=== PATIENT | male | born 1945 | race African-American/Black ===

== ENCOUNTER → 2020-08-01 13:51 | Outpatient (BNVA) | payer OTHER, SELFPAY | PROVIDERS: Visit Provider Internal Medicine | DX: Z45.018 Encounter for adjustment and management of other part of cardiac pacemaker (principal); I48.19 Other persistent atrial fibrillation; I10 Essential (primary) hypertension; E11.8 Type 2 diabetes mellitus with unspecified complications | CPT/HCPCS: 93005; 99202 ==

== ENCOUNTER → 2020-08-24 07:21 | Outpatient (REF) | payer OTHER, SELFPAY ==
--- NOTE | 2020-08-24 07:26 | CA_ITS ---
Transthoracic Echocardiogram Patient (Last, First, Middle): Daniel Reyes, Gender: Male Date of : 1945 Age: 75 Procedure Date: 08/24/2020 Procedure Type: Transthoracic Echocardiogram Location: OP Height: 187.96 cm Weight: 131.54 kg BSA: 2.54 m2 Heart Rate: bpm BP: 119 / 73 mmHg Division Superintendent: sIaac MD: Emiliano Roblero MD Printing Plate Clerk: Aniket Dodd MD Symptoms: I25.10 - Atherosclerotic heart disease of [place] coronary... Study Quality: Good ECG Rhythm: Ventriculary paced rhythm Conclusions: - 1. Normal LV systolic function with mild LVH 2. Mild RV in RA enlargement 3. Normal cardiac valvular Doppler 4. Normal RV systolic pressure 5. No pericardial effusion Findings Left Ventricle Normal left ventricular size and systolic function. There is mildly increased left ventricular wall thickness. The visually estimated ejection fraction is between 60-65%. There is paradoxical septal motion consistent with a right ventricular pacemaker. Diastolic function is indeterminate on the basis of available data. Right Ventricle Mildly increased right ventricular cavity size. There is low normal right ventricular systolic function. There is a pacemaker wire seen in the right ventricle. Atria The left atrium is likely dilated. The right atrium is mildly dilated. A pacemaker wire is identified in the right atrium. Aortic Valve The aortic valve structure and function is likely normal. There is no aortic valve stenosis. There is no aortic valve regurgitation. Mitral Valve Normal mitral valve structure and function. There is trace mitral valve regurgitation. There is no mitral valve stenosis. Pulmonic Valve The pulmonic valve was not well visualized. Tricuspid Valve Likely normal tricuspid valve structure and function. There is mild tricuspid valve regurgitation. The right ventricular systolic pressure is normal. The right ventricular systolic pressure is 33 mmHg. There is no evidence of pulmonary hypertension. Great Vessels All visible segments of the aorta are normal in size. The pulmonary artery was not well visualized. Venous The inferior vena cava is normal in size and collapses greater than 50% with inspiration. Pericardium/Pleural There is no evidence of pericardial effusion. Prior Study Comparison No previous study for comparison in the last 5 years Measurements 2D Linear Measurements RVIDd: 2.56 RVIDd Index: 1.01 IVSd: 1.30 0.6-0.9/0.6-1.0 cm LVIDd: 4.33 3.9-5.3/4.2-5.9 cm LVIDd Index: 1.70 2.4-3.2/2.2-3.1 cm/m2 LVIDs: 3.01 2.0-3.6 cm LVPWd: 1.40 0.7-1.1 cm Ao Root: 3.90 2.1-3.5 cm LA Diam: 4.10 2.7-3.8/3.0-4.0 cm LAIDs Index: 1.61 1.5-2.3 cm/m2 LV Mass: 276.90 67-162/88-224 g LV Mass Index: 109.01 43-95/49-115 g/m2 LVOT Diam: 2.30 3.0+(-)1.3 cm 2D Systolic Function EF 4C: 59.00 >55% EF 2C: 75.10 >55% Aortic Valve AoV Pk Karl: 1.00 AoV Mn Karl: 0.78 AoV VTI: 0.22 AoV Pk Grad: 4.00 Aov Mn Grad: 3.00 BALA Cont.VTI: 3.77 LVOT LVOT Pk Karl: 0.90 LVOT Mn Karl: 0.68 LVOT VTI: 0.20 LVOT Pk Grad: 3.00 LVOT Mn Grad: 2.00 LVOT Diam: 2.30 LVOT Area: 4.15 Tricuspid Valve TR Pk Karl: 2.52 TR Pk Grad: 25.00 RA Press: 8.00 RVSP: 33.00 Great Vessels Aorta Ao Root-2D: 3.90 2.0-3.7 cm Ao Asc: 3.60 2.1-3.4 cm Ao Arch: 3.20 Updated in Other Vendor System with Status of Final Aniket Dodd MD electronically signed on 08/24/2020 12:55:15 PM with status of Final
== END ==
LOC: HO.CARD 07:21
PROVIDERS: Visit Provider Internal Medicine
DX: I25.10 Atherosclerotic heart disease of native coronary artery without angina pectoris (principal); I48.19 Other persistent atrial fibrillation
CPT/HCPCS: 93306

== ENCOUNTER → 2021-01-30 12:43 | Outpatient (BNVA) | payer OTHER, SELFPAY | PROVIDERS: Visit Provider Internal Medicine | DX: Z45.018 Encounter for adjustment and management of other part of cardiac pacemaker (principal); I48.19 Other persistent atrial fibrillation; I10 Essential (primary) hypertension; E11.8 Type 2 diabetes mellitus with unspecified complications | CPT/HCPCS: 99212 ==

== ENCOUNTER → 2021-07-31 12:47 | Outpatient (BNVA) | payer OTHER, SELFPAY | PROVIDERS: Visit Provider Internal Medicine | DX: Z45.018 Encounter for adjustment and management of other part of cardiac pacemaker (principal); I48.19 Other persistent atrial fibrillation; I10 Essential (primary) hypertension; E11.8 Type 2 diabetes mellitus with unspecified complications | CPT/HCPCS: 93005; 93280; 99212 ==

== ENCOUNTER → 2022-02-05 12:57 | Outpatient (BNVA) | payer OTHER, SELFPAY | PROVIDERS: Visit Provider Internal Medicine | DX: Z45.018 Encounter for adjustment and management of other part of cardiac pacemaker (principal); I48.0 Paroxysmal atrial fibrillation; I10 Essential (primary) hypertension; E11.8 Type 2 diabetes mellitus with unspecified complications | CPT/HCPCS: 93280; 99212 ==

== ENCOUNTER 2022-04-24 06:09 | Emergency (ER) | payer OTHER, SELFPAY ==
--- NOTE | ~2022-04-24 | CT_ITS ---
EXAMINATION: CT ABDOMEN AND PELVIS WITHOUT CONTRAST CLINICAL INFORMATION: Abdominal pain, constipation. COMPARISON: CT colonography 03/03/2018. TECHNIQUE: Multidetector volumetric imaging was performed from the superior aspect of the liver through the pubic symphysis. Sagittal and coronal reformatted images were obtained on the technologist's workstation. This CT examination was performed using dose optimization techniques as appropriate, variously including the following: *Automated exposure control *Adjustment of mA and/or kV according to patient size (this includes techniques or standardized protocols for targeted exams where dose is matched to indication/reason for exam; i.e. extremities or head) *Use of iterative reconstruction technique DLP: 843 mGy-cm FINDINGS: LUNG BASES: Calcified granuloma in the right lung base (7:113). Bandlike opacities in the left lower lobe and lingula. Partially imaged pacemaker leads and coronary artery calcifications. LIVER, GALLBLADDER, AND BILIARY TREE: Limited noncontrast evaluation of the liver without discrete focal abnormality. Normal appearance of the gallbladder with no pericholecystic inflammatory changes. No biliary ductal dilatation. PANCREAS: Limited noncontrast examination. No peripancreatic fat stranding or free fluid. SPLEEN: Limited noncontrast examination, unremarkable. ADRENAL GLANDS: No adrenal mass. KIDNEYS AND URETERS: Limited noncontrast examination. No nephrolithiasis or hydronephrosis. A few water density cysts are noted in the right kidney, for which no imaging follow-up is recommended. In the posterior surface of the mid to lower right kidney, there is a partially exophytic mixed density lesion, measuring up to 2 cm which is increased in size from 1.5 cm in 2018. BLADDER: Unremarkable. GASTROINTESTINAL TRACT: Small hiatal hernia. The stomach and the small bowel are nondilated. Normal appendix. There is very large amount of stool throughout the colon and rectum with some equivocal wall thickening of the sigmoid colon and rectum. No evidence of volvulus. There is a small amount of free fluid in the left paracolic gutter (2:37) and right lower quadrant anterior to the sigmoid (2:74). ABDOMINAL WALL: No significant hernia is appreciated. LYMPH NODES: No lymphadenopathy. VASCULAR: Limited noncontrast examination. Abdominal aorta is of normal diameter with scattered atherosclerotic disease. PELVIC VISCERA: Enlarged prostate indenting upon the urinary bladder base. OSSEOUS STRUCTURES: Stable irregularity with increased sclerosis of the endplates at L3, L4 and L5 compared to 2018. CT/CT abdomen pelvis wo IV con IMPRESSION: Very large amount of stool in the colon and rectum with questionable wall thickening of the rectum and sigmoid colon and a small volume of free fluid. Constellation of findings are suggestive of severe constipation with equivocal stercoral colitis. Another differential consideration includes colonic pseudoobstruction ( Nancy Syndrome ). Recommend clinical correlation. Indeterminate 2 cm mixed density lesion in the mid to lower right kidney, increased in size since 2018. Further evaluation with an abdominal MRI with and without IV contrast renal mass protocol is recommended, malignancy is not excluded. Enlarged prostate.
[2022-04-24 06:31] VITALS: BP 128/77; PULSE 106; RESP 16; TEMP 36.6; O2SAT 98; BMI 33.7
[2022-04-24 07:50] VITALS: BP 156/88; PULSE 213; RESP 20; O2SAT 94
[2022-04-24 07:58] LABS: MANUAL DIFF FLAG NO
--- NOTE | 2022-04-24 07:59 | PC.NURSE ---
notified by PCT that HR was 213, I went into room and HR was 100 and regular, patient was in pain at the time vitals were taken, he has no symptoms and he does follow cardiology and has a pacemaker.
[2022-04-24 08:03] LABS: Basophils Percent Auto 0.4 % (0-2); Eosinophils Percent Auto 0.1 % (0-4); Hematocrit 48.7 % (42.0-52.0); Hemoglobin 16.1 g/dl (14.0-18.0); Imm Gran Abs Auto 0.03 X10*3/uL (0.00-0.03); Imm Gran Pct Auto 0.3 % (0.0-0.4); Lymphocytes Absolute Auto 0.7 X10*3/uL (1.2-4.9); Mean Corpuscular HGB Conc 33.1 g/dl (31.0-36.0); Mean Corpuscular Hemoglobin 29.8 pg (27.0-33.0); Mean Platelet Volume 9.6 fL (9.4-12.4); Monocytes Absolute Auto 0.4 X10*3/uL (0.1-1.2); Monocytes Percent Auto 4.3 % (2-11); Neutrophils Absolute Auto 8.3 x10*3/uL (2.0-8.3); Neutrophils Percent Auto 87.9 % (45-73); Platelet Count 310 X10*3/uL (160-400); Red Blood Count 5.41 X10*6/uL (4.60-5.80); Red Cell Distribution Width 13.6 % (11.0-16.0); White Blood Count 9.5 X10*3/uL (4.8-10.8)
[2022-04-24 08:12] LABS: Anion Gap 20 (12-20); Blood Urea Nitrogen 15 mg/dL (9-16); Calcium 10.8 mg/dL (8.4-10.2); Carbon Dioxide 22 mmol/L (22-29); Chloride 101 mmol/L (96-108); Estimated Glomerular Filt Rate > 60; Glucose Random 121 mg/dL (60-115); Potassium 3.5 mmol/L (3.3-5.1); Sodium 139 mmol/L (135-145)
[2022-04-24 08:14] LABS: Appearance Urine Clear; Color Urine Yellow; Glucose Urine UA >=1000 mg/dL (Negative); Leukocyte Esterase Urine Negative (Negative); Nitrite Urine Negative (Negative); PH 5.5 (5.0-9.0); Specific Gravity - Urine 1.025 (1.005-1.025); UMIC TRIGGER UACC YES; Urine Blood Negative (Negative); Urine Ketones 40 mg/dL (Negative); Urine Protein Negative (Neg-Trace)
[2022-04-24 08:16] LABS: Bacteria Urine Trace (None Seen); Hyaline Casts Urine 0-2 /LPF (0-2); WBC Urine 0-5 /HPF (0-5)
--- NOTE | 2022-04-24 09:02 | ED_ITS ---
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 The pain is associated with constipation. He reports his last BM was on 04/19. He has been taking laxatives with no relief. He reports today he started dry heaving which prompted him to come to the ER for evaluation. He reports he is no longer passing gas for the last 2 days. No fever, chills, urinary symptoms, back pain. Denies history of bowel obstruction. MD elicited complaint: abdominal pain Pertinent past history: constipation Onset (ago): day(s) (6) Pain Consistency: constant Location: diffuse Severity: moderate Quality: cramping Radiation: none Exacerbating factors: nothing Relieving factors: nothing Associated symptoms: nausea and constipation Related Data Home Medications Medication Instructions Recorded Confirmed allopurinol 300 mg tablet 300 mg PO DAILY 08/01/20 02/05/22 apixaban 5 mg tablet (Eliquis) 5 mg PO BID 08/01/20 02/05/22 cholecalciferol (vitamin D3) 25 25 mcg PO DAILY 08/01/20 02/05/22 mcg (1,000 unit) capsule cyanocobalamin (vitamin B-12) 1,000 mcg PO DAILY 08/01/20 02/05/22 1,000 mcg capsule ergocalciferol (vitamin D2) 1,250 1,250 mcg PO QWEEK 08/01/20 02/05/22 mcg (50,000 unit) capsule (Vitamin D2) metformin 1,000 mg tablet 1,000 mg PO BID 08/01/20 02/05/22 triamterene 37.5 1 cap PO DAILY 08/01/20 02/05/22 mg-hydrochlorothiazide 25 mg capsule empagliflozin 25 mg tablet 12.5 mg PO DAILY 02/05/22 02/05/22 lisinopril 40 mg tablet 40 mg PO DAILY 02/05/22 02/05/22 rosuvastatin 20 mg tablet 10 mg PO DAILY 02/05/22 02/05/22 semaglutide 1 mg/dose (2 mg/1.5 1 mg subcut QWEEK 02/05/22 02/05/22 mL) subcutaneous pen injector Previous Rx's Medication Instructions Recorded metoprolol succinate 50 mg 50 mg PO DAILY #90 tabs 02/05/22 tablet,extended release 24 hr (Toprol XL) Allergies Allergy/AdvReac Type Severity Reaction Status Date / Time [id number]-VqX Reductase AdvReac Intermediate LEG PAINS Verified 02/05/22 13:36 Inhibitor [[id number] REDUCTASE INHIBITOR] Review of Systems Review of Systems Yes all other systems are reviewed and are negative [facility] Past Medical History Medical History (Updated 04/24/22 @ 12:32 by EILEEN Wahl) Essential hypertension Normally functioning cardiac pacemaker present Persistent atrial fibrillation Type 2 diabetes mellitus with unspecified complications Surgical History History of permanent cardiac pacemaker placement (~2006) Family History Family History Father No problems noted. Mother No problems noted. Social History Social History Patient Tobacco Use Status: Never used Tobacco Smoked in Last 30 Days: No Use of substances other than those prescribed or required for medical reasons: No Advance Directives: No Physical Exam ED Vital Signs: Vital Signs - 24 hr 04/24/22 06:31 04/24/22 07:50 04/24/22 10:46 Temperature 97.9 F Pulse Rate 106 H 213 H Respiratory Rate 16 20 20 Blood Pressure 128/77 156/88 H 145/85 H Pulse Oximetry 98 94 95 Oxygen Delivery Method Room Air Room Air Room Air BMI result Body Mass Index 33.7 Appearance: Alert. Oriented X3. No acute distress. Eyes: Pupils equal, round and reactive to light. ENT: Pharynx normal. Neck: Normal inspection. Neck supple. CVS: Tachycardic, heart rate 100, regular rhythm. Pulses normal. Respiratory: No respiratory distress. Breath sounds normal. Abdomen: Obese, distended, tender throughout with guarding, decreased +BS x4 ESTHER: Large amount of stool in the rectal vault, brown. Skin: Skin warm and dry. Normal skin color. Normal skin turgor. No rashes. Extremities: No lower extremity edema. Neuro: Oriented X 3. No motor deficit. No sensory deficit. Procedures Rectal Disimpaction Time out performed rectal disimpaction: Yes Indication: fecal impaction Sedation/Analgesia: opioids Technique: manual disimpaction with gloved finger Result: significant stool output Patient Tolerated Procedure: well and no complications Complications: none Course Course Course Narrative: 76-year-old male with history of AFib on Eliquis, diabetes, HTN who presents to the ER for evaluation of abdominal pain, constipation for the last 6 days. Associated with dry heaving today and no longer passing flatus for the last 2 days. Concern for possible bowel obstruction verses ileus. CT scanning for further evaluation. Pain meds and nausea meds ordered along with IV fluids. Labs unremarkable other than a calcium of 10.8, which may be related to some dehydration. This can also contribute to constipation. Reevaluation(s) Reevaluation #1: CT scan with a very large amount of stool in the colon and rectum. Possible stercoral colitis. Possible colonic pseudo-obstruction, [place] syndrome. Rectal exam performed, air and stool were removed. Patient tolerated well. Enema given. Will reassess. Reevaluation #2: No BM after enema. Pain is improved. He was given dose of his lactulose. After that he had 4 large bowel movements. He is feeling much better. He would like to go home. At this point comfortable DC home, we discussed importance of hydration, fiber and bowel regimen moving forward. He will follow up with his provider and recommended GI follow-up as well. Patient agrees with plan. Stable for discharge home. Medical Decision Making Differential Diagnosis Differential Diagnoses: The differential diagnosis associated with the presentation includes constipation, SBO, colonic pseudoobstruction, ileus, appendicitis, diverticulitis, cholecystitis Admission/Observation Consideration of admission/observation: Escalation of care including admission/observation considered Lab Data MDM Lab Attestation statement: I reviewed the patient's lab results. Mild hypercalcemia no leukocytosis or major metabolic derangements 04/24/22 07:40 04/24/22 07:40 Labs: Lab Results 04/24/22 04/24/22 04/24/22 Range/Units 07:40 07:40 07:40 WBC 9.5 (4.8-10.8) X10*3/uL RBC 5.41 (4.60-5.80) X10*6/uL Hgb 16.1 (14.0-18.0) g/dl Hct 48.7 (42.0-52.0) % MCV 90.0 (80.0-98.0) fL MCH 29.8 (27.0-33.0) pg MCHC 33.1 (31.0-36.0) g/dl RDW 13.6 (11.0-16.0) % Plt Count 310 (160-400) X10*3/uL MPV 9.6 (9.4-12.4) fL Immature Gran % (Auto) 0.3 (0.0-0.4) % Neut % (Auto) 87.9 H (45-73) % Lymph % (Auto) 7.0 L (20-40) % [place] % (Auto) 4.3 (2-11) % Eos % (Auto) 0.1 (0-4) % Baso % (Auto) 0.4 (0-2) % Lymph # (Auto) 0.7 L (1.2-4.9) X10*3/uL [place] # (Auto) 0.4 (0.1-1.2) X10*3/uL Eos # (Auto) 0.0 (0.0-0.4) X10*3/uL Baso # (Auto) 0.0 (0.0-0.2) X10*3/uL Abs Immat Gran (auto) 0.03 (0.00-0.03) X10*3/uL Absolute Neuts (auto) 8.3 (2.0-8.3) x10*3/uL Absolute Nucleated RBC 0.000 (0.0-0.012) X10*3/uL Nucleated RBC % (auto) 0.0 (0.0-0.2) /100WBC Sodium 139 (135-145) mmol/L Potassium 3.5 (3.3-5.1) mmol/L Chloride 101 (96-108) mmol/L Carbon Dioxide 22 (22-29) mmol/L Anion Gap 20 (12-20) BUN 15 (9-16) mg/dL Creatinine 0.88 (0.5-1.4) mg/dL Estim Creat Clear Calc 98.0 Estimated GFR > 60 Random Glucose 121 H (60-115) mg/dL Calcium 10.8 H (8.4-10.2) mg/dL Urine Color Yellow Urine Appearance Clear Urine pH 5.5 (5.0-9.0) Ur Specific [place] 1.025 (1.005-1.025) Urine Protein Negative (Neg-Trace) mg/dL Urine Glucose (UA) >=1000 H (Negative) mg/dL Urine Ketones 40 (Negative) mg/dL Urine Blood Negative (Negative) Urine Nitrite Negative (Negative) Ur Leukocyte Esterase Negative (Negative) Urine RBC 3-5 H (0-2) /HPF Urine WBC 0-5 (0-5) /HPF Ur Squamous Epith Cells 3-5 (0-2) /HPF Urine Bacteria Trace (None Seen) Hyaline Casts 0-2 (0-2) /LPF Independent Interpretation I performed an independent interpretation of an: CT Scan Interpretation: colonic dilatation, no obvious obstruction or transition point. Radiology Impression Discussion of test interpretation with radiology: I have reviewed the radiologist's reading. Radiologist Impression: CT/CT abdomen pelvis wo IV con IMPRESSION: Very large amount of stool in the colon and rectum with questionable wall thickening of the rectum and sigmoid colon and a small volume of free fluid. Constellation of findings are suggestive of severe constipation with equivocal stercoral colitis. Another differential consideration includes colonic pseudoobstruction ( Nancy Syndrome ). Recommend clinical correlation. ? Indeterminate 2 cm mixed density lesion in the mid to lower right kidney, increased in size since 2018. Further evaluation with an abdominal MRI with and without IV contrast renal mass protocol is recommended, malignancy is not excluded. Independent Historian Clinical information obtained from an independent historian. History obtained from or confirmed by: Spouse External Record Review External record reviewed: Outpatient record, Prior outpatient labs and Prior outpatient radiology Prescription Management I considered prescription management with: Pain Medication and Antibiotic Medications Administered Discontinued Medications Generic Name Dose Route Start Last Admin Trade Name Freq PRN Reason Stop Dose Admin Docusate Sodium 200 mg 04/24/22 11:32 04/24/22 12:07 Docusate Sodium 100 Mg Capsule PO 04/24/22 11:33 200 mg ONCE ONE Administration Sodium Chloride 1,000 mls @ 999 mls/hr 04/24/22 09:15 04/24/22 09:32 Ns IV 04/24/22 10:15 999 mls/hr .Q1H1M INDIRA Administration Morphine Sulfate 4 mg 04/24/22 09:09 04/24/22 09:32 Morphine Sulfate 4 Mg/Ml Cartridge IVPUSH 04/24/22 09:10 4 mg ONCE ONE Administration Protocol Ondansetron HCl 4 mg 04/24/22 09:09 04/24/22 09:32 Ondansetron Hcl 4 Mg/2 Ml Vial IVPUSH 04/24/22 09:10 4 mg ONCE ONE Administration Polyethylene Glycol 17 gm 04/24/22 11:32 04/24/22 12:26 Polyethylene Glycol 3350 17 Gm Powd.Pack PO 04/24/22 11:33 17 gm ONCE ONE Administration Senna 15 ml 04/24/22 11:32 04/24/22 12:07 Senna [place] Extract Oral Syrup 15 Ml Syrup PO 04/24/22 11:33 15 ml ONCE ONE Administration Sodium Biphosphate/Sodium Phosphate 133 ml 04/24/22 11:32 04/24/22 12:07 Sodium Phosphate,[place]-Dibasic 133 Ml Enema KS 04/24/22 11:33 133 ml ONCE ONE Administration Critical Care Time Critical Care Time Critical Care Time: No Discharge Plan Discharge Clinical Impression: Constipation Patient Disposition: Home, Self-Care Instructions: Constipation (ED) Additional Instructions: Your CT scan today showed ?a very large amount of stool in the colon and rectum. ? Recommend continuing to take your previously prescribed lactulose. You can take this to 3 times per day to achieve desired bowel movements. Recommend also taking MiraLax once per day in the morning. This is a more gentle laxative and does not have immediate effects like lactulose does. Your CT scan also showed a ?indeterminate 2 cm mixed density lesion in the right kidney. This is increased from 2018. Radiologist is recommending a dedicated abdominal MRI with a kidney protocol to rule out malignancy. Follow-up with your primary care doctor to arrange this test. Drink plenty of fluids. Make sure staying hydrated. Increase your fiber intake, recommend Metamucil or fiber supplements. If you develop new or worsening symptoms call 911 or come back to the ER for further evaluation. Prescriptions: No Action Eliquis 5 mg tablet 5 mg PO BID metformin 1,000 mg tablet 1,000 mg PO BID triamterene-hydrochlorothiazid 37.5-25 mg capsule 1 cap PO DAILY allopurinol 300 mg tablet 300 mg PO DAILY cholecalciferol (vitamin D3) 25 mcg (1,000 unit) capsule 25 mcg PO DAILY ergocalciferol (vitamin D2) [Vitamin D2] 1,250 mcg (50,000 unit) capsule 1,250 mcg PO QWEEK cyanocobalamin (vitamin B-12) 1,000 mcg capsule 1,000 mcg PO DAILY semaglutide 1 mg/dose (2 mg/1.5 mL) pen injector 1 mg subcut QWEEK rosuvastatin 20 mg tablet 10 mg PO DAILY empagliflozin 25 mg tablet 12.5 mg PO DAILY lisinopril 40 mg tablet 40 mg PO DAILY metoprolol succinate [Toprol XL] 50 mg tablet extended release 24 hr 50 mg PO DAILY Qty: 90 3RF
[2022-04-24] MEDS: ondansetron HCL 4 MG/2 ML VIAL IVPUSH (09:32)
[2022-04-24] MEDS: 0.9 % Sodium Chloride 1,000 ML 999 ML IV (09:32)
[2022-04-24] MEDS: Morphine Sulfate 4 MG/ML CARTRIDGE IVPUSH (09:32)
[2022-04-24 10:46] VITALS: BP 145/85; RESP 20; O2SAT 95
[2022-04-24] MEDS: Sodium Phosphate,Mono-Dibasic 133 ML ENEMA PR (12:07)
[2022-04-24] MEDS: Docusate Sodium 100 MG CAPSULE 200 MG PO (12:07)
[2022-04-24] MEDS: polyethylene glycoL 3350 17 GM POWD.PACK PO (12:26)
== END 2022-04-24 14:47 | disposition home or self-care (01) ==
PROVIDERS: Emergency Provider Emergency Medicine
DX: K59.00 Constipation, unspecified (principal); E11.9 Type 2 diabetes mellitus without complications; I10 Essential (primary) hypertension; I48.91 Unspecified atrial fibrillation; Z79.01 Long term (current) use of anticoagulants; Z79.899 Other long term (current) drug therapy; Z79.02 Long term (current) use of antithrombotics/antiplatelets
CPT/HCPCS: 36415; 74176; 80048; 81001; 81003; 85025; 96374; 96375; 99284; J2270; J2405

== ENCOUNTER → 2022-07-30 12:44 | Outpatient (BNVA) | payer OTHER, SELFPAY | PROVIDERS: Visit Provider Internal Medicine | DX: I48.0 Paroxysmal atrial fibrillation (principal); I10 Essential (primary) hypertension; E11.8 Type 2 diabetes mellitus with unspecified complications; G47.33 Obstructive sleep apnea (adult) (pediatric); Z79.01 Long term (current) use of anticoagulants; Z79.4 Long term (current) use of insulin; Z79.899 Other long term (current) drug therapy; Z99.89 Dependence on other enabling machines and devices; Z45.018 Encounter for adjustment and management of other part of cardiac pacemaker | CPT/HCPCS: 93005; 93280; 99212 ==

== ENCOUNTER 2022-08-13 06:56 | Emergency (ER) | payer OTHER, SELFPAY ==
--- NOTE | ~2022-08-13 | CT_ITS ---
CT ANGIOGRAM NECK WITH CONTRAST CT ANGIOGRAM BRAIN WITH CONTRAST CLINICAL INFORMATION: Severe head pain and neck pain. COMPARISON: None available. TECHNIQUE: Test bolus sequences followed by intravenous administration 70 mL of Omnipaque 350. Helical imaging was performed in the axial plane from the thoracic inlet to the skull vertex. Delayed postcontrast imaging of the head was also performed. The data was processed at the sand technologist workstation for generation of MIP sequences. Angled MIPs and volume rendered reformatted images were also generated at an offline 3D workstation under concurrent supervision. Stenoses are assessed in accordance with NASCET criteria unless otherwise indicated. This CT examination was performed using dose optimization techniques as appropriate, variously including the following: *Automated exposure control *Adjustment of mA and/or kV according to patient size (this includes techniques or standardized protocols for targeted exams where dose is matched to indication/reason for exam; i.e. extremities or head) *Use of iterative reconstruction technique FINDINGS: BRAIN: [There is no intracranial hemorrhage, hydrocephalus, extra-axial surface collection, midline shift, or other herniation pattern. Levin to white matter differentiation is diffusely maintained without evidence of an evolved acute territorial infarct. The basilar cisterns are preserved. No significant soft tissue abnormality. No acute osseous abnormality. The paranasal sinuses and the mastoid air cells are well aerated.] CERVICAL SOFT TISSUES AND LUNG APICES: Left pectoral pacemaker. Dependent atelectasis within the lungs. Advanced cervical spondylosis. There is also diffuse idiopathic skeletal hyperostosis throughout the cervical spine with large anterior bridging disc osteophyte complexes resulting in mass effect on the dorsal oropharynx and hypopharynx as well as the upper thoracic esophagus. There is multilevel central canal stenosis which is not well assessed on CT there is severe multilevel bony foraminal stenosis throughout the cervical spine. There are a few punctate calcifications within the left parotid gland. There is a 1 cm simple appearing lipoma within the right parotid gland. NECK CTA: Left common carotid artery arises from the brachiocephalic artery, an anatomic variant. Left vertebral artery arises from the aortic arch. Proximal arch vessels are non-stenotic. The left vertebral artery is dominant. No significant ostial stenosis is visualized on either side. Both vertebral arteries are widely patent throughout their extracranial cervical course. Both common carotid arteries are normal in course and caliber.] There is atherosclerotic calcification involving the carotid bifurcations bilaterally without significant stenosis. BRAIN CTA: [There is normal opacification of major intracranial arteries. No focal flow-limiting stenosis nor discrete proximal large artery occlusion. No aneurysm. Timing of the contrast bolus allows assessment of the major dural venous sinuses, which all opacify normally] CT/CT angio head neck IMPRESSION: - No acute intracranial findings. No acute arterial occlusions and no significant arterial stenoses within the head or neck. - Advanced cervical spondylosis. There is also diffuse idiopathic skeletal hyperostosis throughout the cervical spine with large anterior bridging disc osteophyte complexes resulting in mass effect on the dorsal oropharynx and hypopharynx as well as the upper thoracic esophagus. There is multilevel central canal stenosis throughout the cervical spine which is not well assessed on CT there is severe multilevel bony foraminal stenosis throughout the cervical spine.
[2022-08-13 07:02] VITALS: BP 166/72; PULSE 86; RESP 18; TEMP 36.6; O2SAT 98; BMI 34.0
--- NOTE | 2022-08-13 07:41 | ED.GENADULT ---
HPI - General Adult General Chief complaint: Neck Pain/Injury Stated complaint: STIFF NECK Time Seen by Provider: 08/13/22 07:13 Source: patient Mode of arrival: ambulatory Limitations: no limitations History of Present Illness HPI narrative: 77-year-old male presents with neck pain. The pain started 3 days ago. Is located in the upper neck. Pain sometimes radiates the head. Describes the pain as a 7/10 at its worse. Right now is currently 5/10. The pain is worse with movement. There is no photo or phonophobia. There has been no fevers or chills. The pain was gradual in onset. There is no trauma, falls, injury. The pain does not radiate to the upper extremities or lower extremities. There is no numbness or tingling. Prior treatment included Tylenol with improvement. He is on blood thinning medications for paroxysmal atrial fibrillation. Patient initially thought it was arthritis Related Data Home Medications Medication Instructions Recorded Confirmed allopurinol 300 mg tablet 300 mg PO DAILY 08/01/20 07/30/22 apixaban 5 mg tablet (Eliquis) 5 mg PO BID 08/01/20 07/30/22 cholecalciferol (vitamin D3) 25 25 mcg PO DAILY 08/01/20 07/30/22 mcg (1,000 unit) capsule cyanocobalamin (vitamin B-12) 1,000 mcg PO DAILY 08/01/20 07/30/22 1,000 mcg capsule ergocalciferol (vitamin D2) 1,250 1,250 mcg PO QWEEK 08/01/20 07/30/22 mcg (50,000 unit) capsule (Vitamin D2) metformin 1,000 mg tablet 1,000 mg PO BID 08/01/20 07/30/22 empagliflozin 25 mg tablet 12.5 mg PO DAILY 02/05/22 07/30/22 lisinopril 40 mg tablet 40 mg PO DAILY 02/05/22 07/30/22 rosuvastatin 20 mg tablet 10 mg PO DAILY 02/05/22 07/30/22 semaglutide 1 mg/dose (2 mg/1.5 1 mg subcut QWEEK 02/05/22 07/30/22 mL) subcutaneous pen injector gabapentin 300 mg capsule 300 mg PO DAILY 07/30/22 07/30/22 insulin aspart U-100 100 unit/mL 100 unit subcut DAILY 07/30/22 07/30/22 (3 mL) subcutaneous pen (Novolog FlexPen U-100 Insulin aspart) triamterene 37.5 0.5 cap PO DAILY 07/30/22 07/30/22 mg-hydrochlorothiazide 25 mg capsule Previous Rx's Medication Instructions Recorded metoprolol succinate 50 mg 50 mg PO DAILY #90 tabs 02/05/22 tablet,extended release 24 hr (Toprol XL) cyclobenzaprine 10 mg tablet 10 mg PO TID PRN muscle spasm #14 08/13/22 tabs lidocaine 5 % topical patch 1 patch topical DAILY #15 ea 08/13/22 Allergies Allergy/AdvReac Type Severity Reaction Status Date / Time Zhlontt-FNX-PfP Reductase AdvReac Intermediate LEG PAINS Verified 07/30/22 13:28 Inhibitor [[id number] REDUCTASE INHIBITOR] [facility] Past Medical History Medical History Essential hypertension Normally functioning cardiac pacemaker present BRIAN on CPAP Persistent atrial fibrillation Type 2 diabetes mellitus with unspecified complications Surgical History History of permanent cardiac pacemaker placement (~2006) Family History Family History Father No problems noted. Mother No problems noted. Social History Social History Alcohol intake: never Patient Tobacco Use Status: Never used Tobacco Smoked in Last 30 Days: No Use of substances other than those prescribed or required for medical reasons: No Advance Directives: Yes Advance Directives Information Provided: No Advance Directives on File: No Physical Exam ED Vital Signs: Vital Signs - 24 hr 08/13/22 07:02 08/13/22 07:57 Temperature 97.8 F 98.0 F Pulse Rate 86 63 Respiratory Rate 18 18 Blood Pressure 166/72 H 130/75 Pulse Oximetry 98 95 Oxygen Delivery Method Room Air Room Air BMI result Body Mass Index 34.0 GEN: Well developed, no acute distress, alert, oriented HEENT: Normocephalic, atraumatic, normal external ears, nose appears normal, no oropharyngeal edema or exudates Eyes: Normal to appearance Neck: Reduced range of motion, bilateral upper lower cervical paraspinous tenderness, no midline tenderness or step-off, no lymphadenopathy Respiratory: Talks in complete sentences, no respiratory distress, clear to auscultation bilaterally Cardiovascular: Regular rate and rhythm, no murmurs rubs or gallops Abdomen: Soft, nontender, nondistended, no guarding, no rebound Back: No CVA tenderness Extremities: No clubbing cyanosis or edema Neurologic: No focal neurologic deficits, cranial nerves 2-12 intact, strength is 5/5 bilaterally Skin: No rash Course Course Course Narrative: 77-year-old male presents with neck pain and headache. The symptoms have started 3 days ago. There are intermittent. Examination did reveal upper cervical paraspinous tenderness. However, patient is on blood thinning medications for paroxysmal atrial fibrillation. Will perform a CT scan of the head and neck to rule out acute pathology. In the meantime, will provide patient with analgesics and muscle relaxants. Will check laboratory analysis to look for other contributing factors. Reevaluation(s) Reevaluation #1: Discussed results with the patient including significant stenosis and degenerative disease. Referred patient back to his primary care provider in 1 week following treatment. Time: 10:29 Medications Administered Discontinued Medications Generic Name Dose Route Start Last Admin Trade Name Prasadq PRN Reason Stop Dose Admin Acetaminophen 975 mg 08/13/22 07:28 08/13/22 07:55 Acetaminophen 325 Mg Tablet PO 08/13/22 07:29 975 mg ONCE ONE Administration Cyclobenzaprine HCl 10 mg 08/13/22 07:28 08/13/22 07:55 Cyclobenzaprine Hcl 10 Mg Tablet PO 08/13/22 07:29 10 mg ONCE ONE Administration Iohexol 100 ml 08/13/22 09:03 08/13/22 09:04 Iohexol 350 Mg/Ml 100 Ml Infus..Btl IV 08/13/22 09:04 70 ml ONCE ONE Administration Lidocaine 1 patch 08/13/22 09:53 08/13/22 09:57 Lidocaine 4 % Patch Adh..Patch TRANSDERMA 08/13/22 09:54 1 patch ONCE ONE Administration Protocol Medical Decision Making Medical Decision Making MDM Narrative: 77-year-old male with diabetes, paroxysmal atrial fibrillation on chronic anticoagulation, hypertension presents with headache and neck pain. Examination revealed reduced range of motion, paraspinous tenderness. Symptoms were not acute in fender clap in nature. Doubt subarachnoid hemorrhage however, given patient's blood thinning status, rule will try to rule out intracranial bleeding, arterial issues. Other differential diagnosis could include spasm, strain, sprain, torticollis, arthritis, stenosis. Doubt epidural abscess as he has no fevers. Doubt meningitis, no fevers, no change of mental status. Differential Diagnosis Differential Diagnoses: The differential diagnosis associated with the presentation includes (See above) Neck pain, headache Admission/Observation Consideration of admission/observation: Escalation of care including admission/observation considered Lab Data MDM Lab Attestation statement: I reviewed the patient's lab results. 08/13/22 07:50 08/13/22 08:15 Labs: Lab Results 08/13/22 08/13/22 08/13/22 Range/Units 07:50 07:50 08:15 WBC 6.8 (4.8-10.8) X10*3/uL RBC 4.91 (4.60-5.80) X10*6/uL Hgb 14.3 (14.0-18.0) g/dl Hct 44.5 (42.0-52.0) % MCV 90.6 (80.0-98.0) fL MCH 29.1 (27.0-33.0) pg MCHC 32.1 (31.0-36.0) g/dl RDW 14.2 (11.0-16.0) % Plt Count 267 (160-400) X10*3/uL MPV 9.5 (9.4-12.4) fL Immature Gran % (Auto) 0.1 (0.0-0.4) % Neut % (Auto) 77.6 H (45-73) % Lymph % (Auto) 14.3 L (20-40) % [place] % (Auto) 7.3 (2-11) % Eos % (Auto) 0.1 (0-4) % Baso % (Auto) 0.6 (0-2) % Lymph # (Auto) 1.0 L (1.2-4.9) X10*3/uL [place] # (Auto) 0.5 (0.1-1.2) X10*3/uL Eos # (Auto) 0.0 (0.0-0.4) X10*3/uL Baso # (Auto) 0.0 (0.0-0.2) X10*3/uL Abs Immat Gran (auto) 0.01 (0.00-0.03) X10*3/uL Absolute Neuts (auto) 5.3 (2.0-8.3) x10*3/uL Absolute Nucleated RBC 0.000 (0.0-0.012) X10*3/uL Nucleated RBC % (auto) 0.0 (0.0-0.2) /100WBC PT 16.6 H (10.0-13.1) SEC INR 1.4 H (0.9-1.1) APTT 31.9 (26.0-36.4) SEC Sodium 141 (135-145) mmol/L Potassium 4.0 (3.3-5.1) mmol/L Chloride 110 H (96-108) mmol/L Carbon Dioxide 24 (22-29) mmol/L Anion Gap 11 L (12-20) BUN 11 (9-16) mg/dL Creatinine 0.74 (0.5-1.4) mg/dL Estim Creat Clear Calc 115.1 Estimated GFR > 60 Random Glucose 105 (60-115) mg/dL Calcium 9.4 D (8.4-10.2) mg/dL Independent Interpretation I performed an independent interpretation of an: CT Scan (CTA head and neck: NAD) Radiology Impression Discussion of test interpretation with radiology: I have reviewed the radiologist's reading. ( CT/CT angio head neck IMPRESSION: - No acute intracranial findings. No acute arterial occlusions and no significant arterial stenoses within the head or neck. - Advanced cervical spondylosis. There is also diffuse idiopathic skeletal hyperostosis throughout the cervical spine wi) Independent Historian Clinical information obtained from an independent historian. History obtained from or confirmed by: Spouse Prescription Management I considered prescription management with: Pain Medication Chronic Conditions Patient?s care impacted by: Diabetes and Hypertension Discharge Plan Discharge Clinical Impression: Torticollis, Acute headache Patient Disposition: Home, Self-Care Instructions: Acute Headache (ED), Neck Pain (ED) Prescriptions: New cyclobenzaprine 10 mg tablet 10 mg PO TID PRN (Reason: muscle spasm) Qty: 14 0RF lidocaine 5 % adhesive patch,medicated 1 patch topical DAILY Qty: 15 0RF Rx Instructions: leave on most painful area for up to 12 hrs No Action Eliquis 5 mg tablet 5 mg PO BID metformin 1,000 mg tablet 1,000 mg PO BID allopurinol 300 mg tablet 300 mg PO DAILY cholecalciferol (vitamin D3) 25 mcg (1,000 unit) capsule 25 mcg PO DAILY ergocalciferol (vitamin D2) [Vitamin D2] 1,250 mcg (50,000 unit) capsule 1,250 mcg PO QWEEK cyanocobalamin (vitamin B-12) 1,000 mcg capsule 1,000 mcg PO DAILY triamterene-hydrochlorothiazid 37.5-25 mg capsule 0.5 cap PO DAILY semaglutide 1 mg/dose (2 mg/1.5 mL) pen injector 1 mg subcut QWEEK rosuvastatin 20 mg tablet 10 mg PO DAILY empagliflozin 25 mg tablet 12.5 mg PO DAILY lisinopril 40 mg tablet 40 mg PO DAILY metoprolol succinate [Toprol XL] 50 mg tablet extended release 24 hr 50 mg PO DAILY Qty: 90 3RF insulin aspart U-100 [Novolog FlexPen U-100 Insulin] 100 unit/mL (3 mL) insulin pen 100 unit subcut DAILY gabapentin 300 mg capsule 300 mg PO DAILY Referrals: Physician,Unknown J [Primary Care Provider] - (Primary care provider in 1 week)
[2022-08-13 07:55] LABS: MANUAL DIFF FLAG NO
[2022-08-13] MEDS: Cyclobenzaprine HCl 10 MG TABLET PO (07:55)
[2022-08-13] MEDS: Acetaminophen 325 MG TABLET 975 MG PO (07:55)
[2022-08-13 07:57] VITALS: BP 130/75; PULSE 63; RESP 18; TEMP 36.7; O2SAT 95
[2022-08-13 07:57] LABS: Basophils Percent Auto 0.6 % (0-2); Eosinophils Percent Auto 0.1 % (0-4); Hematocrit 44.5 % (42.0-52.0); Hemoglobin 14.3 g/dl (14.0-18.0); Imm Gran Abs Auto 0.01 X10*3/uL (0.00-0.03); Imm Gran Pct Auto 0.1 % (0.0-0.4); Lymphocytes Percent Auto 14.3 % (20-40); Mean Corpuscular HGB Conc 32.1 g/dl (31.0-36.0); Mean Corpuscular Hemoglobin 29.1 pg (27.0-33.0); Mean Corpuscular Volume 90.6 fL (80.0-98.0); Mean Platelet Volume 9.5 fL (9.4-12.4); Monocytes Absolute Auto 0.5 X10*3/uL (0.1-1.2); Monocytes Percent Auto 7.3 % (2-11); Neutrophils Absolute Auto 5.3 x10*3/uL (2.0-8.3); Neutrophils Percent Auto 77.6 % (45-73); Platelet Count 267 X10*3/uL (160-400); Red Blood Count 4.91 X10*6/uL (4.60-5.80); Red Cell Distribution Width 14.2 % (11.0-16.0); White Blood Count 6.8 X10*3/uL (4.8-10.8)
[2022-08-13 08:13] LABS: INTERNATIONAL NORM RATIO 1.4 (0.9-1.1); Prothrombin Time 16.6 SEC (10.0-13.1)
[2022-08-13 08:16] LABS: Partial Thromboplastin Time 31.9 SEC (26.0-36.4)
[2022-08-13 08:37] LABS: Anion Gap 11 (12-20); Blood Urea Nitrogen 11 mg/dL (9-16); Calcium 9.4 mg/dL (8.4-10.2); Carbon Dioxide 24 mmol/L (22-29); Chloride 110 mmol/L (96-108); Creatinine Clr Calc Pharmacy 115.1; Estimated Glomerular Filt Rate > 60; Glucose Random 105 mg/dL (60-115); Sodium 141 mmol/L (135-145)
[2022-08-13] MEDS: iohexoL 350 MG/ML 100 ML INFUS..BTL IV (09:04)
[2022-08-13] MEDS: Lidocaine 4 % Patch ADH..PATCH 1 PATCH TRANSDERMA (09:57)
== END 2022-08-13 10:44 | disposition home or self-care (01) ==
PROVIDERS: Emergency Provider Emergency Medicine
DX: M43.6 Torticollis (principal); R51.9 Headache, unspecified; E11.9 Type 2 diabetes mellitus without complications; I10 Essential (primary) hypertension; I48.0 Paroxysmal atrial fibrillation; Z79.01 Long term (current) use of anticoagulants; Z79.4 Long term (current) use of insulin; Z79.899 Other long term (current) drug therapy
CPT/HCPCS: 36415; 70496; 70498; 80048; 85025; 85610; 85730; 99284; Q9967

== ENCOUNTER 2022-10-05 11:04 | Outpatient (AMB) | payer MEDICARE, SELFPAY ==
--- NOTE | 2022-10-05 09:34 | A.OFFVIS_ITS ---
Intake Intake Visit Reasons: Renal Lesion Intake Note: NEW Patient presents today to established treatment for Renal Lesion. Meds- None Allergies to Antibiotic- None Blood Thinner- Eliquis Allergies Oojtgvy-OPF-VbQ Reductase Inhibitor [CHTZUMB-XIH-OOP REDUCTASE INHIBITOR] Adverse Reaction (Intermediate, Verified 10/05/22 11:53) LEG PAINS HPI HPI Comments History of Present Illness Details Daniel is a 77-year-old male who presents to the office as a new patient evaluation for renal lesion. 10/05/22-- The patient denies gross hematuria. Denies episode of UTI. States having 2 voiding episodes per night. Denies family history of prostate cancer. The patient is on Eliquis 5 mg BID. CTAP without IV contrast--04/24/22-- 2cm exophytic mixed density lesion in the right kidney which is reported to be increased from prior size of 1.5 cm on imaging from 2018. CTAP with and without IV contrast--09/05/2022--follow-up to the prior image on 04/24/22--1.9 cm heterogeneous lesion that enhances and is worrisome for renal malignancy. CAT scan chest--05/08/22-- impression-- no new abnormality identified. Evaluation today: Blood: negative, leukocytes: negative. Treatment options including cryoablation recommended due to size of renal mass was discussed with the patient. Plan: Referred to interventional radiologist. Medical clearance to stop eliquis and aspirin prior to procedure PSA screening PSA blood work was ordered. [facility] [place] Medical History Essential hypertension Normally functioning cardiac pacemaker present BRIAN on CPAP Persistent atrial fibrillation Type 2 diabetes mellitus with unspecified complications Surgical History History of permanent cardiac pacemaker placement (~2006) Family History Father No problems noted. Mother No problems noted. Social History Alcohol intake: never Patient Tobacco Use Status: Never used Tobacco Review of Systems Const All systems reviewed & are unremarkable except as noted in HPI and below Reports no additional complaints Eyes Reports no additional complaints ENT Reports no additional complaints Card Denies dyspnea Resp Denies cough and Denies dyspnea GI Reports no additional complaints Musc Reports no additional complaints Skin/Breast Denies rash and Denies unusual bruising Neuro Reports no additional complaints Psych Reports no additional complaints Endo Reports no additional complaints Gael/Lymph Reports no additional complaints Aller/Immun Reports no additional complaints Physical Exam Const General: healthy appearing, no acute distress and well developed Orientation/consciousness: patient oriented x3 HEENT Head: Yes normocephalic and Yes atraumatic Eyes Conjunctivae: conjunctivae normal Neck Neck: Yes normal visual inspection Chest Chest palpation & inspection: normal inspection of the chest Resp Effort & Inspection: normal respiratory effort Cardio Rate: regular rate GI Inspection: Yes normal to inspection Skin General skin exam: no rashes or lesions noted Neuro General: patient oriented x3 Psych Appearance: grossly normal Affect: normal affect Results AMB Urinalysis, Automated UA Leukoctes 0 Eliz/uL Last Edit by Dedra Martinez [facility] on 10/05/22 11:53 UA Nitrite Negative Last Edit by Dedra Martinez [facility] on 10/05/22 11:53 UA Urobilinogen 0.2 mg/dL Last Edit by Dedra Martinez [facility] on 10/05/22 11:5 3 UA Protein 0 mg/dL Last Edit by Dedra Martinez [facility] on 10/05/22 11:53 UA pH 6.0 Last Edit by Dedra Martinez [facility] on 10/05/22 11:53 UA Blood 0 Myke/uL Last Edit by Dedra Martinez [facility] on 10/05/22 11:53 UA Specific [place] 1.025 Last Edit by Dedra Martinez [facility] on 10/05/22 11: 53 UA Ketone Negative Last Edit by Dedra Martinez [facility] on 10/05/22 11:53 UA Bilirubin 1 mg/dL Last Edit by Dedra Martinez [facility] on 10/05/22 11:53 UA Glucose 1000 mg/dL Last Edit by Dedra Martinez [facility] on 10/05/22 11:53 Results Reviewed Results Reviewed: Laboratory Last Values Urine pH (Auto) 6.0 10/05/22 11:52 Specific [place] (Auto) 1.025 10/05/22 11:52 Urine Protein (Auto) 0 mg/dL 10/05/22 11:52 Glucose (UA)(Auto) 1000 mg/dL 10/05/22 11:52 Urine Ketones (Auto) Negative 10/05/22 11:52 Urine Blood (Auto) 0 Myke/uL 10/05/22 11:52 Urine Nitrite (Auto) Negative 10/05/22 11:52 Urine Bilirubin (Auto) 1 mg/dL 10/05/22 11:52 Urine Urobilinogen (Auto) 0.2 mg/dL 10/05/22 11:52 Leukocyte Esterase (Auto) 0 Eliz/uL 10/05/22 11:52 Date of Service: 04/24/22 Procedure(s): CT abdomen pelvis wo IV con Accession Number(s): [id number] cc: Risa Walls~ EXAMINATION: CT ABDOMEN AND PELVIS WITHOUT CONTRAST? CLINICAL INFORMATION: Abdominal pain, constipation.? COMPARISON: CT colonography 03/03/2018.? TECHNIQUE: Multidetector volumetric imaging was performed from the superior aspect of the liver through the pubic symphysis. Sagittal and coronal reformatted images were obtained on the technologist's workstation.? This CT examination was performed using dose optimization techniques as appropriate, variously including the following: *Automated exposure control *Adjustment of mA and/or kV according to patient size (this includes techniques or standardized protocols for targeted exams where dose is matched to indication/reason for exam; i.e. extremities or head) *Use of iterative reconstruction technique DLP: 843 mGy-cm FINDINGS: LUNG BASES: Calcified granuloma in the right lung base (7:113). Bandlike opacities in the left lower lobe and lingula. Partially imaged pacemaker leads and coronary artery calcifications.? LIVER, GALLBLADDER, AND BILIARY TREE: Limited noncontrast evaluation of the liver without discrete focal abnormality. Normal appearance of the gallbladder with no pericholecystic inflammatory changes. No biliary ductal dilatation. PANCREAS: Limited noncontrast examination. No peripancreatic fat stranding or free fluid.? SPLEEN: Limited noncontrast examination, unremarkable.? ADRENAL GLANDS: No adrenal mass.? KIDNEYS AND URETERS: Limited noncontrast examination. No nephrolithiasis or hydronephrosis. A few water density cysts are noted in the right kidney, for which no imaging follow-up is recommended. In the posterior surface of the mid to lower right kidney, there is a partially exophytic mixed density lesion, measuring up to 2 cm which is increased in size from 1.5 cm in 2018.? BLADDER: Unremarkable.? GASTROINTESTINAL TRACT: Small hiatal hernia. The stomach and the small bowel are nondilated. Normal appendix. There is very large amount of stool throughout the colon and rectum with some equivocal wall thickening of the sigmoid colon and rectum. No evidence of volvulus. There is a small amount of free fluid in the left paracolic gutter (2:37) and right lower quadrant anterior to the sigmoid (2:74).? ABDOMINAL WALL: No significant hernia is appreciated.? LYMPH NODES: No lymphadenopathy. VASCULAR: Limited noncontrast examination. Abdominal aorta is of normal diameter with scattered atherosclerotic disease. PELVIC VISCERA: Enlarged prostate indenting upon the urinary bladder base.? OSSEOUS STRUCTURES: Stable irregularity with increased sclerosis of the endplates at L3, L4 and L5 compared to 2018.? IMPRESSION: Very large amount of stool in the colon and rectum with questionable wall thickening of the rectum and sigmoid colon and a small volume of free fluid. Constellation of findings are suggestive of severe constipation with equivocal stercoral colitis. Another differential consideration includes colonic pseudoobstruction ( [place] Syndrome ). Recommend clinical correlation. ? Indeterminate 2 cm mixed density lesion in the mid to lower right kidney, increased in size since 2018. Further evaluation with an abdominal MRI with and without IV contrast renal mass protocol is recommended, malignancy is not excluded. Assessment & Plan Assessment & Plan (1) Screening PSA (prostate specific antigen): Code(s): Z12.5 - Encounter for screening for malignant neoplasm of prostate (2) Renal mass: Code(s): N28.89 - Other specified disorders of kidney and ureter (3) Nocturia: Code(s): R35.1 - Nocturia Plan Referred to interventional radiologist. Medical clearance to stop eliquis and aspirin prior to procedure PSA screening PSA blood work was ordered. Orders: Orders PSA,Total (Free>4and<10) Today Z12.5 - Encounter for screening for malignant neoplasm of prostate CT guided ablation renal Today N28.89 - Other specified disorders of kidney and ureter AMB Urinalysis Automated Today Z13.9 - Encounter for screening, unspecified Patient Instructions: The patient had an opportunity to ask questions regarding treatment plan. All questions were answered. Imaging, Laboratory studies and physical exam results were discussed and reviewed in detail. No major barriers to understanding were identified. The patient expressed understanding and agreement with the above treatment plan. The patient is aware they should contact our office by phone for worsening of their current condition or the appearance of new symptoms. Compliance is encouraged with any medications and followup testing that is ordered. It is a privilege to be allowed the opportunity to participate in the urologic care of your patient. If you have any questions or concerns regarding treatment for the above conditions please do not hesitate to contact me. The office telephone contact is [phone]. This note is constructed in part using voice recognition software. While every effort has been made to ensure accuracy risk adjustment specialist errors may have been included. Yours sincerely, Camila Sellers MD Coding Level of Care Code New Pt Level 4 (70335) Diagnoses Screening PSA (prostate specific antigen) Z12.5 Renal mass N28.89 Nocturia R35.1
== END 2022-10-05 13:40 | disposition home or self-care (01) ==
PROVIDERS: Visit Provider Urology
DX: Z12.5 Encounter for screening for malignant neoplasm of prostate (principal); N28.89 Other specified disorders of kidney and ureter; R35.1 Nocturia
CPT/HCPCS: 99204

== ENCOUNTER → 2022-10-05 11:04 | Outpatient (BNVA) | payer OTHER, SELFPAY | PROVIDERS: Visit Provider Urology ==

== ENCOUNTER 2022-10-05 12:21 | Outpatient (REF) | payer OTHER, SELFPAY ==
[2022-10-05 14:34] LABS: PSA,Total (Free>4and<10) 3.43 ng/mL (0.00-4.00)
== END 2022-10-05 12:22 | disposition home or self-care (01) ==
LOC: HO.10HDL 12:21
PROVIDERS: Visit Provider Urology
DX: Z12.5 Encounter for screening for malignant neoplasm of prostate (principal); N28.89 Other specified disorders of kidney and ureter; R35.1 Nocturia
CPT/HCPCS: 36415; 84153; 99202

== ENCOUNTER 2022-10-22 07:54 | Outpatient (REF) | payer MEDICARE, SELFPAY ==
[2022-10-22 11:16] LABS: Blood Urea Nitrogen 13 mg/dL (9-16); Estimated Glomerular Filt Rate > 60
== END 2022-10-22 07:55 | disposition home or self-care (01) ==
LOC: HO.10HDL 07:54
PROVIDERS: Visit Provider Urology
DX: N28.89 Other specified disorders of kidney and ureter (principal)
CPT/HCPCS: 36415; 82565; 84520

== ENCOUNTER 2022-11-09 07:39 | Outpatient (REF) | payer MEDICARE, SELFPAY ==
--- NOTE | ~2022-11-09 | CT_ITS ---
EXAMINATION: CT ABDOMEN WITHOUT AND WITH CONTRAST CLINICAL INFORMATION: Renal mass COMPARISON: Previous CT of the abdomen and pelvis March [address] colonoscopy exam February 2018 TECHNIQUE: Contiguous axial thin section helical images of the abdomen were performed before and after the administration of oral contrast and 85 mL of Omnipaque 350 intravenous contrast. The data set was reformatted in the coronal and sagittal planes and reviewed on an independent workstation. This CT examination was performed using dose optimization techniques as appropriate, variously including the following: *Automated exposure control *Adjustment of mA and/or kV according to patient size (this includes techniques or standardized protocols for targeted exams where dose is matched to indication/reason for exam; i.e. extremities or head) *Use of iterative reconstruction technique DLP: 983 mGy-cm FINDINGS: LUNG BASES: Elevated left hemidiaphragm. Atelectasis and focal bronchiectasis at the lung bases. 3 mm stable calcified right lower lobe pulmonary nodule probably representing a calcified granuloma. LIVER, GALLBLADDER, AND BILIARY TREE: Normal. Normal PANCREAS: Normal SPLEEN: Normal ADRENAL GLANDS AND KIDNEYS: There is a partially solid partially cystic lesion exophytic to the posterior lateral lower pole of the right kidney. This measures 1.3 x 1.4 cm. This does not appear appreciably changed from previous exams going back to oldest CT colonoscopy exam February 2018. This has a solid enhancing component. Hounsfield units of solid component measure 9 precontrast and 80 postcontrast. Appearance is suspicious for renal neoplasm. There are multiple right renal cysts, largest measuring 2.7 cm in the lower pole. No imaging follow-up of renal cysts recommended. The left kidney is normal. The adrenal glands are normal. BOWEL LOOPS: Stool throughout the colon to just above constipation. Mild diverticulosis. Question wall thickening of the hepatic flexure for example coronal reconstructed image 41 and sagittal reconstructed image 95 versus changes due to underdistention. Visualized bowel is otherwise unremarkable. LYMPH NODES: Normal. VASCULAR: Atherosclerotic disease. No aneurysm. BONES: Degenerative changes of the spine. CT/CT abdomen wo/w IV con IMPRESSION: 1.3 cm partially solid partially cystic lesion exophytic to the posterior lateral lower pole of the right kidney. Appearance is concerning for renal neoplasm. This does not appear appreciably changed in size from previous exams going back to oldest available CT exam from 2017. Focal wall thickening of the hepatic flexure. No corresponding abnormality is seen in this region on CT colonoscopy exam March 2022 and appearance may be due to underdistention. Attention on follow-up recommended. Fleischner guidelines were followed. Findings will be communicated by the [place] work flow news department intern.
[2022-11-09] MEDS: iohexoL 350 MG/ML 100 ML INFUS..BTL 85 ML IV (08:19)
== END 2022-11-09 07:40 | disposition home or self-care (01) ==
LOC: HO.CT 07:39
PROVIDERS: Visit Provider Urology
DX: N28.89 Other specified disorders of kidney and ureter (principal)
CPT/HCPCS: 74170; Q9967

== ENCOUNTER 2022-11-21 13:49 | Outpatient (AMB) | payer OTHER, SELFPAY ==
--- NOTE | 2022-11-21 12:04 | A.OFFVIS_ITS ---
Intake Intake Visit Reasons: CT results- follow up Intake Note: Patient presents today to for a follow-up on Renal Lesion, CT scan results completed on 11/09/2022: Meds- None Allergies to Antibiotic- None Blood Thinner- Eliquis Rehabilitation Medicine Physician Required: No Accompanied by: Self / Same As Patient Allergies Simybyk-GOX-OrE Reductase Inhibitor [[id number]-GSN-OAC REDUCTASE INHIBITOR] Adverse Reaction (Intermediate, Verified 11/21/22 13:51) LEG PAINS HPI HPI Comments History of Present Illness Details Daniel is a 77-year-old male who presents today to the office for a follow-up CT results. 11/21/2022? Daniel is followed today for renal lesion. He was last seen by me on 10/05/2022 for nocturia. The patient was referred to interventional radiologist during that time. He was given medical clearance to stop eliquis and aspirin prior to procedure, and PSA blood work was ordered during that time. I have reviewed the CT of the abdomen with and without IV contrast results revealed a 1.3 cm partially solid partially cystic lesion exophytic to the posterior lateral lower pole of the right kidney. Appearance is concerning for renal neoplasm. I reviewed the PSA results from 10/05/2022 revealed 3.43. He is on Eliquis 5 mg BID. He denies any other new concerns or complains at this time. Review of charts: Last visit: 10/05/2022? 10/05/22-- The patient denies gross hematuria. Denies episode of UTI. States having 2 voiding episodes per night. Denies family history of prostate cancer. The patient is on Eliquis 5 mg BID. CTAP without IV contrast--04/24/22-- 2cm exophytic mixed density lesion in the right kidney which is reported to be increased from prior size of 1.5 cm on imaging from 2018. CTAP with and without IV contrast--09/05/2022--follow-up to the prior image on 04/24/22--1.9 cm heterogeneous lesion that enhances and is worrisome for renal malignancy. CAT scan chest--05/08/22-- impression-- no new abnormality identified. Evaluation today: Blood: negative, leukocytes: negative. Treatment options including cryoablation recommended due to size of renal mass was discussed with the patient. Plan: Referred to interventional radiologist. Medical clearance to stop eliquis and aspirin prior to procedure PSA screening 11/21/2022: Plan: Advised the patient to follow-up with abrasives sales representative regarding medical clearance. He needs medical clearance from abrasives sales representative to stop Eliquis prior to the procedure. Awaiting insurance authorization for the cryoablation. Ordered CAT scan of the kidneys in 2 weeks. Follow up in 4 months. [facility] Medical History Essential hypertension Normally functioning cardiac pacemaker present BRIAN on CPAP Persistent atrial fibrillation Type 2 diabetes mellitus with unspecified complications Surgical History History of permanent cardiac pacemaker placement (~2006) Family History Father No problems noted. Mother No problems noted. Social History Alcohol intake: never Patient Tobacco Use Status: Never used Tobacco Review of Systems Const All systems reviewed & are unremarkable except as noted in HPI and below Reports no additional complaints Eyes Reports no additional complaints ENT Reports no additional complaints Card Denies dyspnea Resp Denies cough and Denies dyspnea GI Reports no additional complaints Musc Reports no additional complaints Skin/Breast Denies rash and Denies unusual bruising Neuro Reports no additional complaints Psych Reports no additional complaints Endo Reports no additional complaints Gael/Lymph Reports no additional complaints Aller/Immun Reports no additional complaints Physical Exam Const General: healthy appearing, no acute distress and well developed Orientation/consciousness: patient oriented x3 HEENT Head: Yes normocephalic and Yes atraumatic Eyes Conjunctivae: conjunctivae normal Neck Neck: Yes normal visual inspection Chest Chest palpation & inspection: normal inspection of the chest Resp Effort & Inspection: normal respiratory effort Cardio Rate: regular rate GI Inspection: Yes normal to inspection Skin General skin exam: no rashes or lesions noted Neuro General: patient oriented x3 Psych Appearance: grossly normal Affect: normal affect Results AMB Urinalysis, Automated UA Leukoctes 0 Eliz/uL Last Edit by EVER Delarosa on 11/21/22 14:06 UA Nitrite Negative Last Edit by Papito Edwards Neo on 11/21/22 14:06 UA Urobilinogen 0.2 mg/dL Last Edit by Papito Edwards Neo on 11/21/22 14:0 6 UA Protein 0 mg/dL Last Edit by Papito Edwards Neo on 11/21/22 14:06 UA pH 7.0 Last Edit by Papito Edwards [facility] on 11/21/22 14:06 UA Blood 0 Myke/uL Last Edit by Papito Edwards [facility] on 11/21/22 14:06 UA Specific [place] 1.015 Last Edit by EVER Delarosa on 11/21/22 14: 06 UA Ketone Negative Last Edit by Papito Edwards Neo on 11/21/22 14:06 UA Bilirubin 0 mg/dL Last Edit by Papito Edwards [facility] on 11/21/22 14:06 UA Glucose 1000 mg/dL Last Edit by Papito Edwards Neo on 11/21/22 14:06 3+ Papito Edwards 11/21/22 14:06 Results Reviewed Results Reviewed: Laboratory Last Values Urine pH (Auto) 7.0 11/21/22 14:05 Specific [place] (Auto) 1.015 11/21/22 14:05 Urine Protein (Auto) 0 mg/dL 11/21/22 14:05 Glucose (UA)(Auto) 1000 mg/dL 11/21/22 14:05 Urine Ketones (Auto) Negative 11/21/22 14:05 Urine Blood (Auto) 0 Myke/uL 11/21/22 14:05 Urine Nitrite (Auto) Negative 11/21/22 14:05 Urine Bilirubin (Auto) 0 mg/dL 11/21/22 14:05 Urine Urobilinogen (Auto) 0.2 mg/dL 11/21/22 14:05 Leukocyte Esterase (Auto) 0 Eliz/uL 11/21/22 14:05 EXAMINATION: CT ABDOMEN WITHOUT AND WITH CONTRAST CLINICAL INFORMATION: Renal mass? COMPARISON: Previous CT of the abdomen and pelvis March [address] colonoscopy exam February 2018 FINDINGS: LUNG BASES: Elevated left hemidiaphragm. Atelectasis and focal bronchiectasis at the lung bases. 3 mm stable calcified right lower lobe pulmonary nodule probably representing a calcified granuloma.? LIVER, GALLBLADDER, AND BILIARY TREE: Normal. Normal? PANCREAS: Normal? SPLEEN: Normal? ADRENAL GLANDS AND KIDNEYS: There is a partially solid partially cystic lesion exophytic to the posterior lateral lower pole of the right kidney. This measures 1.3 x 1.4 cm. This does not appear appreciably changed from previous exams going back to oldest CT colonoscopy exam February 2018. This has a solid enhancing component. Hounsfield units of solid component measure 9 precontrast and 80 postcontrast. Appearance is suspicious for renal neoplasm. There are multiple right renal cysts, largest measuring 2.7 cm in the lower pole. No imaging follow-up of renal cysts recommended. The left kidney is normal. The adrenal glands are normal. BOWEL LOOPS: Stool throughout the colon to just above constipation. Mild diverticulosis. Question wall thickening of the hepatic flexure for example coronal reconstructed image 41 and sagittal reconstructed image 95 versus changes due to underdistention. Visualized bowel is otherwise unremarkable.? LYMPH NODES: Normal. VASCULAR: Atherosclerotic disease. No aneurysm. BONES: Degenerative changes of the spine.? IMPRESSION: 1.3 cm partially solid partially cystic lesion exophytic to the posterior lateral lower pole of the right kidney. Appearance is concerning for renal neoplasm. This does not appear appreciably changed in size from previous exams going back to oldest available CT exam from 2017. Focal wall thickening of the hepatic flexure. No corresponding abnormality is seen in this region on CT colonoscopy exam March 2022 and appearance may be due to underdistention. Attention on follow-up recommended. Assessment & Plan Assessment & Plan (1) Renal mass: Code(s): N28.89 - Other specified disorders of kidney and ureter Plan Advised the patient to follow-up with abrasives sales representative regarding medical clearance. He needs medical clearance from abrasives sales representative to stop Eliquis prior to the procedure. Awaiting insurance authorization for the cryoablation. Ordered CAT scan of the kidneys in 2 weeks. Follow up in 4 months. Orders: Orders AMB Urinalysis Automated 11/21/22 Z13.9 - Encounter for screening, unspecified Patient Instructions: The patient had an opportunity to ask questions regarding treatment plan. All questions were answered. Imaging, Laboratory studies and physical exam results were discussed and reviewed in detail. No major barriers to understanding were identified. The patient expressed understanding and agreement with the above treatment plan.? ? ? The patient is aware they should contact our office by phone for worsening of their current condition or the appearance of new symptoms. Compliance is encouraged with any medications and followup testing that is ordered.? ? ? It is a privilege to be allowed the opportunity to participate in the urologic care of your patient. If you have any questions or concerns regarding treatment for the above conditions please do not hesitate to contact me. The office telephone contact is [phone].? ? ? This note is constructed in part using voice recognition software. While every effort has been made to ensure accuracy fashion intern errors may have been included.? ? ? Yours sincerely,? ? ? Camila Sellers MD? Coding Level of Care Code Est Pt Level 4 (55973) Diagnoses Renal mass N28.89
== END 2022-11-21 14:26 | disposition home or self-care (01) ==
PROVIDERS: Visit Provider Urology
DX: N28.89 Other specified disorders of kidney and ureter (principal)
CPT/HCPCS: 99214

== ENCOUNTER → 2022-11-21 13:49 | Outpatient (BNVA) | payer MEDICARE, SELFPAY | PROVIDERS: Visit Provider Urology | DX: N28.89 Other specified disorders of kidney and ureter (principal) | CPT/HCPCS: 81003; 99212 ==

== ENCOUNTER 2022-12-24 10:17 | Day surgery (SDC) | payer OTHER, SELFPAY ==
[2022-12-24] VITALS (8 sets, daily range): BP systolic 119–133; BP diastolic 48–77; PULSE 59–61; RESP 14–18; TEMP 36–36.6; O2SAT 95–98; BMI 34.3
--- NOTE | ~2022-12-24 | CT_ITS ---
EXAMINATION: CT-guided biopsy and cryoablation renal CLINICAL INFORMATION: Right renal mass COMPARISON: Previous CT scans most recent October 2022 TECHNIQUE: Procedure and risks and benefits including bleeding, infection, injury to the kidney and adjacent organs, inability to do the procedure, risk of recurrent and residual neoplasm and need for follow-up imaging was discussed with the patient and informed consent was obtained. The patient was positioned in the prone position. The right flank was prepped and draped in the usual sterile fashion. Using CT guidance and a coaxial system, access to the 1.5 cm lesion in the lower pole of the right kidney was obtained. 2 20-gauge core biopsies were obtained. Subsequently, a 14-gauge 17 cm in length Ice umberto cryoablation probe was positioned in the renal lesion. Two 10 minute freeze cycles followed by 6 minute thaw cycles were performed. Imaging was performed at the completion of each freeze cycle. The probe was removed. Postprocedure imaging of the kidneys was performed. Anesthesia was provided by the anesthesia department. Patient received 80 mL of Omnipaque 350 intravenously during the procedure. FINDINGS: There is a 1.5 cm lesion exophytic to the lateral lower pole of the left kidney that was targeted for biopsy and cryoablation. Images demonstrate adequate position of probe placement and ice ball obscuring the targeted lesion. No postprocedure hematoma. CT/CT guided ablation renal IMPRESSION: CT-guided right renal mass biopsy and cryoablation.
[2022-12-24 11:51] LABS: MANUAL DIFF FLAG NO
[2022-12-24 12:00] LABS: Basophils Absolute Auto 0.1 X10*3/uL (0.0-0.2); Eosinophils Absolute Auto 0.1 X10*3/uL (0.0-0.4); Eosinophils Percent Auto 1.6 % (0-4); Hematocrit 47.8 % (42.0-52.0); Hemoglobin 15.7 g/dl (14.0-18.0); Imm Gran Abs Auto 0.01 X10*3/uL (0.00-0.03); Imm Gran Pct Auto 0.2 % (0.0-0.4); Lymphocytes Absolute Auto 1.5 X10*3/uL (1.2-4.9); Mean Corpuscular HGB Conc 32.8 g/dl (31.0-36.0); Mean Corpuscular Hemoglobin 30.1 pg (27.0-33.0); Mean Corpuscular Volume 91.7 fL (80.0-98.0); Mean Platelet Volume 9.5 fL (9.4-12.4); Monocytes Absolute Auto 0.4 X10*3/uL (0.1-1.2); Monocytes Percent Auto 7.7 % (2-11); Neutrophils Absolute Auto 2.9 x10*3/uL (2.0-8.3); Neutrophils Percent Auto 58.5 % (45-73); Platelet Count 279 X10*3/uL (160-400); Red Blood Count 5.21 X10*6/uL (4.60-5.80); Red Cell Distribution Width 14.8 % (11.0-16.0)
[2022-12-24 12:02] LABS: INTERNATIONAL NORM RATIO 1.1 (0.9-1.1); Prothrombin Time 13.4 SEC (11.1-13.3)
--- NOTE | 2022-12-24 12:05 | P.CONAN_ITS ---
Documented by User: Rika Harvey NP 12/21/22 14:55 HPI - Anesthesia Eval Consult details Narrative: 77yo M for Right Kidney Cryo-Ablation (renal mass) Eliquis for afib PMFSH Active Problems Active Problems: All Active Problems (Updated 10/05/22 @ 12:21 by Philippe Willson) Nocturia (Acute) Renal mass (Acute) Screening PSA (prostate specific antigen) (Acute) BRIAN on CPAP (Acute) PAF (paroxysmal atrial fibrillation) (Acute) Normally functioning cardiac pacemaker present (Acute) Type 2 diabetes mellitus with unspecified complications (Acute) Essential hypertension (Acute) Persistent atrial fibrillation (Acute) Past Medical History Medical History BRIAN on CPAP Normally functioning cardiac pacemaker present Type 2 diabetes mellitus with unspecified complications Essential hypertension Persistent atrial fibrillation Family History Family History Father No problems noted. Mother No problems noted. Surgical History Surgical History History of permanent cardiac pacemaker placement (~2006) Social History Social History Alcohol intake: never Patient Tobacco Use Status: Never used Tobacco Use of substances other than those prescribed or required for medical reasons: No Advance Directives: No Advance Directives Information Provided: Yes Meds Allergies Allergy/AdvReac Type Severity Reaction Status Date / Time [id number]-[id number]-[id number] Reductase AdvReac Intermediate LEG PAINS Verified 11/21/22 13:51 Inhibitor [KOAXINI-XEL-FHC REDUCTASE INHIBITOR] Home Medications Medication Instructions Recorded Confirmed Last Taken Type allopurinol 300 mg tablet 300 mg PO DAILY 08/01/20 07/30/22 Unknown History apixaban 5 mg tablet (Eliquis) 5 mg PO BID 08/01/20 07/30/22 Unknown History cholecalciferol (vitamin D3) 25 25 mcg PO DAILY 08/01/20 07/30/22 Unknown History mcg (1,000 unit) capsule cyanocobalamin (vitamin B-12) 1,000 mcg PO DAILY 08/01/20 07/30/22 Unknown History 1,000 mcg capsule ergocalciferol (vitamin D2) 1,250 1,250 mcg PO QWEEK 08/01/20 07/30/22 Unknown History mcg (50,000 unit) capsule (Vitamin D2) metformin 1,000 mg tablet 1,000 mg PO BID 08/01/20 07/30/22 Unknown History empagliflozin 25 mg tablet 12.5 mg PO DAILY 02/05/22 07/30/22 Unknown History lisinopril 40 mg tablet 40 mg PO DAILY 02/05/22 07/30/22 Unknown History rosuvastatin 20 mg tablet 10 mg PO DAILY 02/05/22 07/30/22 Unknown History semaglutide 1 mg/dose (2 mg/1.5 1 mg subcut QWEEK 02/05/22 07/30/22 Unknown History mL) subcutaneous pen injector gabapentin 300 mg capsule 300 mg PO DAILY 07/30/22 07/30/22 Unknown History insulin aspart U-100 100 unit/mL 100 unit subcut DAILY 07/30/22 07/30/22 Unknown History (3 mL) subcutaneous pen (Novolog FlexPen U-100 Insulin aspart) triamterene 37.5 0.5 cap PO DAILY 07/30/22 07/30/22 Unknown History mg-hydrochlorothiazide 25 mg capsule Exam Exam Date and Time: December 21, 2022 7150 Pertinent Lab Results Pertinent Lab Results: Laboratory Tests 08/13/22 08/13/22 08/13/22 07:50 07:50 08:15 WBC 6.8 Hgb 14.3 Hct 44.5 Plt Count 267 Sodium 141 Potassium 4.0 Chloride 110 H Carbon Dioxide BUN Creatinine 08/13/22 10/22/22 10/22/22 08:15 08:00 08:00 WBC Hgb Hct Plt Count Sodium Potassium Chloride Carbon Dioxide 24 BUN 13 Creatinine 0.84 Narrative Narrative: 07/2022 Cardiac Device Check Details: Pacemaker interrogated today. Dual-chamber device, programmed DDDR mode. Battery status 4 years. Normal lead parameters. Atrial pacing 2%. Ventricular pacing 100%. Atrial fibrillation burden is 36%. No rapid rates. Overall, normal device function. 98109-AP Cardiac Device Check, pacemaker dual lead Procedure code (CPT) selection complete EKG Details: EKG with atrial sensed, ventricular paced rhythm at 85/Min. 18001-Fduq[place]j, Complete Assessment and Plan Assessment Anesthesia Assessment: Chart Reviewed Documented by User: Arianne Del Real DO 12/24/22 12:15 HPI - Anesthesia Eval Consult details Narrative: 77yo M for Right Kidney Cryo-Ablation (renal mass) Eliquis for afib - last dose 7 days ago. On Ozempic as well - due for dose today but did not take it this morning. Pacemaker - last device check was 07/2022. BRIAN on CPAP. [facility] Past Medical History Medical History BRIAN on CPAP Normally functioning cardiac pacemaker present Type 2 diabetes mellitus with unspecified complications Essential hypertension Persistent atrial fibrillation Family History Family History Father No problems noted. Mother No problems noted. Family history of problems with anesthesia: No Surgical History Surgical History History of permanent cardiac pacemaker placement (~2006) History of Problems with Anesthesia: No Social History Social History Alcohol intake: never Patient Tobacco Use Status: Never used Tobacco Use of substances other than those prescribed or required for medical reasons: No Advance Directives: No Advance Directives Information Provided: Yes Meds Allergies Allergy/AdvReac Type Severity Reaction Status Date / Time Uaytakd-BUH-WlL Reductase AdvReac Intermediate LEG PAINS Verified 11/21/22 13:51 Inhibitor [[id number]-RLQ REDUCTASE INHIBITOR] Home Medications Medication Instructions Recorded Confirmed Last Taken Type allopurinol 300 mg tablet 300 mg PO DAILY 08/01/20 07/30/22 Unknown History apixaban 5 mg tablet (Eliquis) 5 mg PO BID 08/01/20 07/30/22 Unknown History cholecalciferol (vitamin D3) 25 25 mcg PO DAILY 08/01/20 07/30/22 Unknown History mcg (1,000 unit) capsule cyanocobalamin (vitamin B-12) 1,000 mcg PO DAILY 08/01/20 07/30/22 Unknown History 1,000 mcg capsule ergocalciferol (vitamin D2) 1,250 1,250 mcg PO QWEEK 08/01/20 07/30/22 Unknown History mcg (50,000 unit) capsule (Vitamin D2) metformin 1,000 mg tablet 1,000 mg PO BID 08/01/20 07/30/22 Unknown History empagliflozin 25 mg tablet 12.5 mg PO DAILY 02/05/22 07/30/22 Unknown History lisinopril 40 mg tablet 40 mg PO DAILY 02/05/22 07/30/22 Unknown History rosuvastatin 20 mg tablet 10 mg PO DAILY 02/05/22 07/30/22 Unknown History semaglutide 1 mg/dose (2 mg/1.5 1 mg subcut QWEEK 02/05/22 07/30/22 Unknown History mL) subcutaneous pen injector gabapentin 300 mg capsule 300 mg PO DAILY 07/30/22 07/30/22 Unknown History insulin aspart U-100 100 unit/mL 100 unit subcut DAILY 07/30/22 07/30/22 Unknown History (3 mL) subcutaneous pen (Novolog FlexPen U-100 Insulin aspart) triamterene 37.5 0.5 cap PO DAILY 07/30/22 07/30/22 Unknown History mg-hydrochlorothiazide 25 mg capsule Exam Exam Date and Time: December 24, 2022 1205 Height,Weight and Vital Signs: Height 6 ft 1 in Weight 117.934 kg Airway Mallampati Class: II TM Dist: >3cm Neck ROM: Limited (arthritis) Loose/Missing/Broken Teeth: Yes (Edentulous. Has posts on bottom jaw.) Heart: S1S2 Lungs: CTAB Assessment and Plan Assessment Anesthesia Assessment: Anesthesia Plan Discussed and Chart Reviewed Final Anesthetic Review Family History of Problems with Anesthesia: No History of Problems with Anesthesia: No NPO: Yes ASA Class: III Final Preanesthetic Review: No Changes in Pt Med Stat, Meds/Allgs Chart Reviewed, Consent Obtained/Reviewed and Anes Risks/Benef Reviewed Patient Risk: Intermediate Procedure Risk: Low Anesthetic Plan Anesthetic Plan: GA and Agree w/ Assess. and Plan Disposition: Standard PACU
[2022-12-24 12:07] LABS: Anion Gap 13 (12-20); Carbon Dioxide 26 mmol/L (22-29); Chloride 107 mmol/L (96-108); Creatinine Clr Calc Pharmacy 97.9; Estimated Glomerular Filt Rate > 60; Potassium 3.9 mmol/L (3.3-5.1); Sodium 142 mmol/L (135-145)
[2022-12-24 12:49] LABS: Glucose, Whole Blood 104 mg/dL (60-115)
[2022-12-24] MEDS: iohexoL 350 MG/ML 75 ML INFUS..BTL 80 ML IV (15:04)
[2022-12-27 21:44] LABS: Mixing Study - PT 11.7 sec (9.0-11.5); PTT LA 31 sec (< OR = 40)
== END 2022-12-24 16:55 | disposition home or self-care (01) ==
LOC: HO.SSS 10:19
PROVIDERS: Radiology Diagnostic Radiology; Visit Provider Urology
DX: D17.71 Benign lipomatous neoplasm of kidney (principal); E11.9 Type 2 diabetes mellitus without complications; I10 Essential (primary) hypertension; I48.19 Other persistent atrial fibrillation; G47.33 Obstructive sleep apnea (adult) (pediatric); Z99.89 Dependence on other enabling machines and devices; Z95.0 Presence of cardiac pacemaker; Z79.01 Long term (current) use of anticoagulants
CPT/HCPCS: 36415; 50593; 77013; 80051; 82565; 82947; 85025; 85610; 85611; 85732; 88305; 88341; 88342; C2618; J0690; J2371; J2405; J3010; Q9967

== ENCOUNTER → 2022-12-24 12:51 | Outpatient (BNV) | payer OTHER, SELFPAY | PROVIDERS: Visit Provider Radiology Diagnostic Radiology | DX: N28.89 Other specified disorders of kidney and ureter (principal) | CPT/HCPCS: 50593; 77013 ==

== ENCOUNTER 2023-01-07 13:08 | Outpatient (AMB) | payer OTHER, SELFPAY ==
--- NOTE | 2023-01-07 13:09 | A.OFFVIS_ITS ---
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 Accompanied by: Self / Same As Patient Allergies Qurjmae-EAQ-HmF Reductase Inhibitor [NUORIQM-ADS-OWH REDUCTASE INHIBITOR] Adverse Reaction (Intermediate, Verified 01/07/23 13:10) LEG PAINS Medication List - Last Reconciled 01/07/23 by Camila Sellers MD allopurinol 300 mg PO DAILY apixaban (Eliquis) 5 mg PO BID cholecalciferol (vitamin D3) 25 mcg PO DAILY cyanocobalamin (vitamin B-12) 1,000 mcg PO DAILY cyclobenzaprine 10 mg PO TID PRN cyclobenzaprine 10 mg PO TID PRN empagliflozin 12.5 mg PO DAILY ergocalciferol (vitamin D2) (Vitamin D2) 1,250 mcg PO QWEEK gabapentin 300 mg PO DAILY insulin aspart U-100 (Novolog FlexPen U-100 Insulin aspart) 100 units subcut DAILY lidocaine 5% 1 patch topical DAILY lidocaine 5% 1 patch topical DAILY lisinopril 40 mg PO DAILY metformin 1,000 mg PO BID metoprolol succinate ER (Toprol XL) 50 mg PO DAILY rosuvastatin 10 mg PO DAILY semaglutide 1 mg subcut QWEEK tamsulosin 0.4 mg PO BEDTIME 90 days triamterene-hydrochlorothiazid 37.5-25 mg 0.5 caps PO DAILY HPI HPI Comments History of Present Illness Details Daniel is a 77-year-old male who presents today to the office for a follow-up. 01/07/23? He is followed today for cryo results. He is s/p renal bx and cryoablation on 12/24/22. 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 Discussed that this is a benign lesion that consists of fatty tissue, muscle, and blood vessels. He states that he is getting up at 3-4 times at night to urinate. AUA score - 15. Review of charts: Last visit: 11/21/2022? Daniel is followed today for renal lesion. I have reviewed the CT of the abdomen with and without IV contrast results revealed a 1.3 cm partially solid partially cystic lesion exophytic to the posterior lateral lower pole of the right kidney. Appearance is concerning for renal neoplasm. I reviewed the PSA results from 10/05/2022 revealed 3.43. 01/07/23: Plan: CAT scan of the abdomen was ordered. Prescribed tamsulosin 0.4 mg daily. Follow-up in 4 months. [facility] Medical History BRIAN on CPAP Normally functioning cardiac pacemaker present Type 2 diabetes mellitus with unspecified complications Essential hypertension Persistent atrial fibrillation Surgical History History of permanent cardiac pacemaker placement (~2006) Family History Father No problems noted. Mother No problems noted. Social History Alcohol intake: never Patient Tobacco Use Status: Never used Tobacco Questionnaire AUA Symptom Score AUA Incomplete emptying - It does not feel like I empty my bladder all the way.: 2 - Less than half the time Frequency - I have to go again less than two hours after I finish urinating.: 2 - Less than half the time Intermittency - I stop and start again several times when I urinate.: 3 - About half the time Urgency - It is hard to wait when I have to urinate.: 2 - Less than half the time Weak stream - I have a weak urinary stream.: 2 - Less than half the time Straining - I have to push or strain to begin urination.: 1 - Less than 1 time in 5 Nocturia - I get up to urinate after I go to bed until the time I get up in the morning.: 3 times AUA Symptom Score: 15 Quality of life due to urinary symptoms: If you were to spend the rest of your life with your urinary condition the way it is now, how would you feel about that?: Mixed: about equally satisfied and dissatisfied Source: Randy LEMOS, Gayathri GONZALES Jr, O'Halie MP, et al, and the Measurement Committee of the [employer] [place] [employer]. The [place] [employer] symptom index for benign prostatic hyperplasia. J Urol. 1992; 148: 4079-7266. Copyright 1991 [employer] [employer] Review of Systems Const All systems reviewed & are unremarkable except as noted in HPI and below Reports no additional complaints Eyes Reports no additional complaints ENT Reports no additional complaints Card Denies dyspnea Resp Denies cough and Denies dyspnea GI Reports no additional complaints Musc Reports no additional complaints Skin/Breast Denies rash and Denies unusual bruising Neuro Reports no additional complaints Psych Reports no additional complaints Endo Reports no additional complaints Gael/Lymph Reports no additional complaints Aller/Immun Reports no additional complaints Physical Exam Const General: healthy appearing, no acute distress and well developed Orientation/consciousness: patient oriented x3 HEENT Head: Yes normocephalic and Yes atraumatic Eyes Conjunctivae: conjunctivae normal Neck Neck: Yes normal visual inspection Chest Chest palpation & inspection: normal inspection of the chest Resp Effort & Inspection: normal respiratory effort Cardio Rate: regular rate GI Inspection: Yes normal to inspection Skin General skin exam: no rashes or lesions noted Neuro General: patient oriented x3 Psych Appearance: grossly normal Affect: normal affect Results Reviewed Results Reviewed: Diagnosis Kidney, right lower pole, needle core biopsy: Angiomyolipoma (see comment). COMMENT: The morphologic features and immunohistochemical stain profile supports the above diagnosis. Clinical History Right renal mass, R/O Malignancy Microscopic Description Sections of the kidney biopsy demonstrate a myoid spindle cell proliferation with some sclerosis and epithelioid areas. No mature adipose tissue or thick walled blood vessels are seen. Immunostains show the lesional cells to be positive for SMA and HMB45 while negative for MART-1, CD117 and PAX8. Material Received Right renal mass bx's Gross Description Received in formalin are 4 lara-white, delicate needle cores of soft tissue measuring 5-7 mm in length, totally submitted in cassette A1. (SMITH) Assessment & Plan Assessment & Plan (1) Renal angiomyolipoma: Code(s): D17.71 - Benign lipomatous neoplasm of kidney (2) BPH loc w urin obs/LUTS: Code(s): N40.1 - Benign prostatic hyperplasia with lower urinary tract symptoms (3) Nocturia: Code(s): R35.1 - Nocturia Plan CAT scan of the abdomen was ordered. Prescribed tamsulosin 0.4 mg daily. Follow-up in 4 months. Medications: New tamsulosin 0.4 mg PO BEDTIME 90 caps 1RF 90 days Patient Instructions: The patient had an opportunity to ask questions regarding treatment plan. All questions were answered. Imaging, Laboratory studies and physical exam results were discussed and reviewed in detail. No major barriers to understanding were identified. The patient expressed understanding and agreement with the above treatment plan.? ? ? The patient is aware they should contact our office by phone for worsening of their current condition or the appearance of new symptoms. Compliance is encouraged with any medications and followup testing that is ordered.? ? ? It is a privilege to be allowed the opportunity to participate in the urologic care of your patient. If you have any questions or concerns regarding treatment for the above conditions please do not hesitate to contact me. The office telephone contact is [phone].? ? ? This note is constructed in part using voice recognition software. While every effort has been made to ensure accuracy lead burner apprentice errors may have been included.? ? ? Yours sincerely,? ? ? Camila Sellers MD? Quality Reporting (2019) Benign Prostatic Hyperplasia ([facility] 771) AUA symptom score: 15 Quality of life due to urinary symptoms: If you were to spend the rest of your life with your urinary condition the way it is now, how would you feel about that?: Mixed: about equally satisfied and dissatisfied Coding Level of Care Code Est Pt Level 4 (87086) Diagnoses Renal angiomyolipoma D17.71 BPH loc w urin obs/LUTS N40.1 Nocturia R35.1
== END 2023-01-07 14:15 | disposition home or self-care (01) ==
PROVIDERS: Visit Provider Urology
DX: D17.71 Benign lipomatous neoplasm of kidney (principal); N40.1 Benign prostatic hyperplasia with lower urinary tract symptoms; R35.1 Nocturia
CPT/HCPCS: 99214

== ENCOUNTER → 2023-01-07 13:08 | Outpatient (BNVA) | payer OTHER, SELFPAY | PROVIDERS: Visit Provider Urology | DX: D17.71 Benign lipomatous neoplasm of kidney (principal); N40.1 Benign prostatic hyperplasia with lower urinary tract symptoms; R35.1 Nocturia | CPT/HCPCS: 99212 ==

== ENCOUNTER 2023-02-04 13:29 | Outpatient (AMB) | payer OTHER, SELFPAY ==
[2023-02-04 13:49] VITALS: BP 118/70; PULSE 81; BMI 36.6
--- NOTE | 2023-02-04 13:49 | A.OFFVIS_ITS ---
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 Accompanied by: Self / Same As Patient Allergies Onoetrg-LYX-CyF Reductase Inhibitor [GULHSKN-GJJ-DYO REDUCTASE INHIBITOR] Adverse Reaction (Intermediate, Verified 02/04/23 13:51) LEG PAINS Medication List - Last Reconciled 02/04/23 by Emiliano Roblero MD allopurinol 300 mg PO DAILY apixaban (Eliquis) 5 mg PO BID cholecalciferol (vitamin D3) 25 mcg PO DAILY cyanocobalamin (vitamin B-12) 1,000 mcg PO DAILY cyclobenzaprine 10 mg PO TID PRN cyclobenzaprine 10 mg PO TID PRN empagliflozin 12.5 mg PO DAILY ergocalciferol (vitamin D2) (Vitamin D2) 1,250 mcg PO QWEEK gabapentin 300 mg PO DAILY insulin aspart U-100 (Novolog FlexPen U-100 Insulin aspart) 100 units subcut DAILY lidocaine 5% 1 patch topical DAILY lidocaine 5% 1 patch topical DAILY lisinopril 40 mg PO DAILY metformin 1,000 mg PO BID metoprolol succinate ER (Toprol XL) 50 mg PO DAILY rosuvastatin 10 mg PO DAILY semaglutide 1 mg subcut QWEEK tamsulosin 0.4 mg PO BEDTIME 90 days triamterene-hydrochlorothiazid 37.5-25 mg 0.5 caps PO DAILY HPI HPI Comments History of Present Illness Details Daniel returns for follow-up regarding atrial fibrillation as well as pacemaker. 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 That led to permanent pacemaker implantation. It appears that he [facility]. Overall, he is feeling good. No specific complaints like angina or shortness of breath or in fact anything cardiac sounding. Seems to be getting along okay. [facility] Medical History BRIAN on CPAP Normally functioning cardiac pacemaker present Type 2 diabetes mellitus with unspecified complications Essential hypertension Persistent atrial fibrillation Surgical History History of permanent cardiac pacemaker placement (~2006) Family History Father No problems noted. Mother No problems noted. Social History Alcohol intake: never Patient Tobacco Use Status: Never used Tobacco Review of Systems Const All systems reviewed & are unremarkable except as noted in HPI and below Reports as per HPI and Reports no additional complaints Eyes Reports as per HPI and Denies no additional complaints ENT Denies no additional complaints and Reports as per HPI Card Reports as per HPI, Reports no additional complaints, Denies acrocyanosis, Denies chest pain, Denies leg edema, Denies lightheadedness, Denies palpitations and Denies dyspnea Resp Reports as per HPI, Denies no additional complaints and Denies dyspnea GI Reports as per HPI and Denies no additional complaints Reports no additional complaints and Reports as per HPI Musc Reports no additional complaints and Reports as per HPI Skin/Breast Reports system reviewed and no additional complaints, except as documented Neuro Reports no additional complaints and Reports as per HPI Psych Reports no additional complaints and Reports as per HPI Endo Reports no additional complaints, Reports as per HPI and Denies palpitations Gael/Lymph Reports no additional complaints and Reports as per HPI Aller/Immun Reports no additional complaints and Reports as per HPI Physical Exam Vital Signs: Last Vital Signs Pulse 81 02/04/23 13:49 BP 118/70 02/04/23 13:49 BMI result Body Mass Index 36.6 Const General: comfortable and no acute distress Orientation/consciousness: patient oriented x3 HEENT Other: Unremarkable Head: Yes normal to inspection Neck Neck: Yes normal visual inspection Chest Chest palpation & inspection: normal inspection of the chest Resp Auscultation: clear to auscultation bilaterally Cardio Palpation: normal PMI Heart sounds: S1 normal heart sound present, S2 normal heart sound present, no gallops, no murmurs and no rubs GI Palpation (GI): Soft to palpation Back/Spine/Pelvis Other: unremarkable Skin General skin exam: no rashes or lesions noted Neuro General: patient oriented x3 Extrem General: Yes normal to inspection Psych Mental Status: mental status grossly normal Office Procedures Cardiac Device Check Cardiac Device Check Details: Pacemaker interrogated today; programmed DDDR changed to VVIR due to persistent atrial fibrillation. Normal lead parameters. AF burden 100%. HOME CARE PROVIDER 99%. 27067-VL Cardiac Device Check, pacemaker dual lead Procedure code (CPT) selection complete Assessment & Plan Assessment & Plan (1) Persistent atrial fibrillation: Code(s): I48.19 - Other persistent atrial fibrillation Plan: In the past, paroxysmal atrial fibrillation but now more persistent. Rates m ostly well controlled based on rate histogram. Clinically, he has got absolutely no symptoms. Continue beta-blockers and anticoagulation. (2) Essential hypertension: Code(s): I10 - Essential (primary) hypertension Plan: On lisinopril, Triamterene/HCTZ. (3) Type 2 diabetes mellitus with unspecified complications: Code(s): E11.8 - Type 2 diabetes mellitus with unspecified complications Plan: On insulin, empagliflozin, metformin, semaglutide. Most recently, random glucose 105 mg/dL. (4) BRIAN on CPAP: Code(s): G47.33 - Obstructive sleep apnea (adult) (pediatric); Z99.89 - Dependence on other enabling machines and devices Plan: Continue CPAP. Coding Level of Care Code Est Pt Level 4 (79825) Diagnoses Persistent atrial fibrillation I48.19 Essential hypertension I10 Type 2 diabetes mellitus with unspecified complications E11.8 BRIAN on CPAP G47.33; Z99.89 CPT Codes Cardiac Device Check - Cardiac Device 2: 25575-[id number] Cardiac Device Check, pacemak er dual lead ([id number])
== END 2023-02-04 14:17 | disposition home or self-care (01) ==
PROVIDERS: Visit Provider Internal Medicine
DX: I48.19 Other persistent atrial fibrillation (principal); I10 Essential (primary) hypertension; E11.8 Type 2 diabetes mellitus with unspecified complications; G47.33 Obstructive sleep apnea (adult) (pediatric); Z99.89 Dependence on other enabling machines and devices
CPT/HCPCS: 93280; 99213

== ENCOUNTER → 2023-02-04 13:29 | Outpatient (BNVA) | payer OTHER, SELFPAY | PROVIDERS: Visit Provider Internal Medicine | DX: Z45.018 Encounter for adjustment and management of other part of cardiac pacemaker (principal); I48.19 Other persistent atrial fibrillation; I10 Essential (primary) hypertension; E11.8 Type 2 diabetes mellitus with unspecified complications; G47.33 Obstructive sleep apnea (adult) (pediatric); Z99.89 Dependence on other enabling machines and devices | CPT/HCPCS: 93280; 99212 ==

== ENCOUNTER → 2023-02-06 23:59 | Outpatient (BNV) | payer OTHER, SELFPAY ==
--- NOTE | 2023-02-10 13:29 | A.OFFVIS_ITS ---
Intake Intake Visit Reasons: Remote Device Check- [employer] Allergies Kmdbatf-NXY-SsE Reductase Inhibitor [OUSLQJU-JWU-OXC REDUCTASE INHIBITOR] Adverse Reaction (Intermediate, Verified 02/04/23 13:51) LEG PAINS PFSH Medical History BRIAN on CPAP Normally functioning cardiac pacemaker present Type 2 diabetes mellitus with unspecified complications Essential hypertension Persistent atrial fibrillation Surgical History History of permanent cardiac pacemaker placement (~2006) Family History Father No problems noted. Mother No problems noted. 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 [id number] Cardiac Device Interrogation, pacemaker Procedure code (CPT) selection complete Assessment & Plan Assessment & Plan (1) Persistent atrial fibrillation: Code(s): I48.19 - Other persistent atrial fibrillation Coding Level of Care Code Procedure Only Diagnoses Persistent atrial fibrillation I48.19 CPT Codes Cardiac Device Check - Cardiac Device 12: [id number] Cardiac Device I nterrogation, pacemaker ([id number])
== END ==
PROVIDERS: Visit Provider Internal Medicine
DX: I48.19 Other persistent atrial fibrillation (principal); Z95.0 Presence of cardiac pacemaker
CPT/HCPCS: 93294

== ENCOUNTER 2023-04-02 07:50 | Outpatient (REF) | payer OTHER, SELFPAY ==
--- NOTE | ~2023-04-02 | CT_ITS ---
EXAMINATION: CT ABDOMEN WITHOUT AND WITH CONTRAST CLINICAL INFORMATION: Status post cryoablation of right lower pole renal neoplasm. COMPARISON: CT abdomen 11/07/2022, CT-guided renal ablation 10/24/2022. TECHNIQUE: Contiguous axial thin section helical images of the abdomen were performed before and after the administration of oral contrast and 85 mL of Omnipaque 350 intravenous contrast. The data set was reformatted in the coronal and sagittal planes and reviewed on an independent workstation. This CT examination was performed using dose optimization techniques as appropriate, variously including the following: *Automated exposure control *Adjustment of mA and/or kV according to patient size (this includes techniques or standardized protocols for targeted exams where dose is matched to indication/reason for exam; i.e. extremities or head) *Use of iterative reconstruction technique DLP: 951 mGy-cm FINDINGS: LUNG BASES: Dual leads from a bipolar pacemaker are present. The left hemidiaphragm is elevated. Scarring and traction bronchiectasis is present at the lung bases. Calcified granuloma seen at the right lung base. There is a tiny 2 mm right lower lobe nodule (5:14). Findings are unchanged when compared to 11/09/2022. LIVER, GALLBLADDER, AND BILIARY TREE: The liver is normal in size, shape, and attenuation. No focal hepatic lesion or biliary ductal dilatation is present. The gallbladder is unremarkable with no evidence of radiopaque gallstones, gallbladder wall thickening, or obvious pericholecystic inflammatory changes. PANCREAS: Unremarkable. SPLEEN: Unremarkable. ADRENAL GLANDS: Unremarkable. KIDNEYS AND URETERS: Right Kidney: Again seen are 3 water density simple Bosniak class I cysts in the right kidney the largest measuring about 3 cm in size. These benign Bosniak class I cysts need no additional imaging or followup. In the mid right kidney posterolaterally at about 7 o'clock, there is the residua of the 1.4 cm cryoablated mass. On the current study, this appears less well defined and measures about 1.3 x 1.5 cm in maximal transverse dimension (5:117) but includes some inflammatory changes around it with thickening of the posterior pararenal fascia. There are 2 components of the mass. A medial lower attenuation area and a lateral higher attenuation area. On noncontrast images, these 2 areas measure -2 and 19 Hounsfield units and after IV contrast measure 4.9 and 21 Hounsfield units respectively. There is no significant enhancement. No nephrolithiasis. No hydronephrosis. Visualized portion of the right ureter is normal. Left Kidney: The left kidney and visualized ureter appear normal. GASTROINTESTINAL TRACT: The visualized bowel is unremarkable. ABDOMINAL WALL: No significant hernia is appreciated. LYMPH NODES: Normal. VASCULAR: Calcific atherosclerotic changes are present in the aorta and iliac vessels. There is no evidence of an abdominal aortic aneurysm. OSSEOUS STRUCTURES: Degenerative changes are present in the spine. CT/CT abdomen wo/w IV con IMPRESSION: 1. The cryoablated mass in the mid right kidney appears less well defined and measures about 1.3 x 1.5 cm in maximal transverse dimension. On the current study, this appears less well-defined but includes some inflammatory changes around it with thickening of the posterior pararenal fascia. There is no significant enhancement. 2. Other incidental findings as described above. Fleischner guidelines were followed.
[2023-04-02] MEDS: iohexoL 350 MG/ML 100 ML INFUS..BTL IV (08:50)
[2023-04-03 06:44] LABS: Creatinine POC 0.8 mg/dL (0.5-1.4); GFR POC 60
== END 2023-04-02 07:51 | disposition home or self-care (01) ==
LOC: HO.CT 07:50
PROVIDERS: Visit Provider Urology
DX: N28.89 Other specified disorders of kidney and ureter (principal)
CPT/HCPCS: 74170; 82565; Q9967

== ENCOUNTER 2023-04-24 09:35 | Outpatient (AMB) | payer OTHER, SELFPAY ==
--- NOTE | 2023-04-24 08:04 | A.OFFVIS_ITS ---
Intake Intake Visit Reasons: 5m/CT Intake Note: Patient presents today for a follow-up on: CT Meds- Tamsulosin Allergies to Antibiotic- No Known Allergies Blood Thinner- Eliquis Post Void Residual: 43 Patient Symptoms: Patient stated he has frequent urination, however he stated he feels very well, and does not know if he is taking Tamsulosin. 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 04/24/2023--Daniel was initially sent for evaluation due to right renal mass. 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 I have reviewed results of recent CT scan of 04/02/2023 the cryo ablated mass has no significant enhancement. As the renal biopsy indicated an angiomyolipoma, dedicated follow-up imaging is not indicated. The patient was started on tamsulosin for lower urinary tract symptoms secondary to BPH he states he did not get the medication. He states that he feels medications at the [place] pharmacy. 04/02/23--CTAP The cryoablated mass in th e mid right kidney appears less well defined and measures about 1.3 x 1.5 cm in maximal transverse dimension. On the current study, this appears less well-defined but includes some inflammatory changes around it with thickening of the posterior pararenal fascia. There is no significant enhancement. Review of charts: He states that he is getting up at 3-4 times at night to urinate. AUA score - 15. s/p renal bx and cryoablation on 12/24/22. renal biopsy done on 12/24/22 --revealed angiomyolipoma. 11/09/22--CT of the abdomen with and with out IV contrast results revealed a 1.3 cm partially solid partially cystic lesion exophytic to the posterior lateral lower pole of the right kidney. (Appearance is concerning for renal neoplasm). PSA results from 10/05/2022 revealed 3.43. 01/07/23: Plan: Prescribed tamsulosin 0.4 mg daily. Printed script Follow-up, PSA prior [facility], [facility] Medical History BRIAN on CPAP Normally functioning cardiac pacemaker present Type 2 diabetes mellitus with unspecified complications Essential hypertension Persistent atrial fibrillation Surgical History History of permanent cardiac pacemaker placement (~2006) Family History Father No problems noted. Mother No problems noted. Social History Alcohol intake: never Patient Tobacco Use Status: Never used Tobacco Review of Systems Const All systems reviewed & are unremarkable except as noted in HPI and below Reports no additional complaints Eyes Reports no additional complaints ENT Reports no additional complaints Card Denies dyspnea Resp Denies cough and Denies dyspnea GI Reports no additional complaints Musc Reports no additional complaints Skin/Breast Denies rash and Denies unusual bruising Neuro Reports no additional complaints Psych Reports no additional complaints Endo Reports no additional complaints Gael/Lymph Reports no additional complaints Aller/Immun Reports no additional complaints Results AMB Urinalysis, Automated UA Leukoctes 0 Eliz/uL Last Edit by Wendy Monroe CMA on 04/24/23 10 :07 UA Nitrite Negative Last Edit by Wendy Monroe CMA on 04/24/23 10: 07 UA Urobilinogen 0.2 mg/dL Last Edit by Wendy Monroe CMA on 4 10:07 UA Protein 30 mg/dL Last Edit by Wendy Monroe CMA on 04/24/23 10:0 7 UA pH 6.0 Last Edit by Wendy Monroe CMA on 04/24/23 10:07 UA Blood 10 Myke/uL Last Edit by Wendy Monroe CMA on 04/24/23 10:07 UA Specific [place] 1.020 Last Edit by Wendy Monroe CMA on 10:07 UA Ketone Negative Last Edit by Wendy Monroe CMA on 04/24/23 10:0 7 UA Bilirubin 0 mg/dL Last Edit by Wendy Monroe CMA on 04/24/23 10: 07 UA Glucose 1000 mg/dL Last Edit by Wendy Monroe CMA on 04/24/23 10 :07 Results Reviewed Results Reviewed: Laboratory Last Values Urine pH (Auto) 6.0 04/24/23 10:05 Specific [place] (Auto) 1.020 04/24/23 10:05 Urine Protein (Auto) 30 mg/dL H* 04/24/23 10:05 Glucose (UA)(Auto) 1000 mg/dL H* 04/24/23 10:05 Urine Ketones (Auto) Negative 04/24/23 10:05 Urine Blood (Auto) 10 Myke/uL 04/24/23 10:05 Urine Nitrite (Auto) Negative 04/24/23 10:05 Urine Bilirubin (Auto) 0 mg/dL 04/24/23 10:05 Urine Urobilinogen (Auto) 0.2 mg/dL 04/24/23 10:05 Leukocyte Esterase (Auto) 0 Eliz/uL 04/24/23 10:05 Date of Service: 04/02/23 EXAMINATION: CT ABDOMEN WITHOUT AND WITH CONTRAST CLINICAL INFORMATION: Status post cryoablation of right lower pole renal neoplasm. COMPARISON: CT abdomen 11/07/2022, CT-guided renal ablation 10/24/2022. FINDINGS: LUNG BASES: Dual leads from a bipolar pacemaker are present. The left hemidiaphragm is elevated. Scarring and traction bronchiectasis is present at the lung bases. Calcified granuloma seen at the right lung base. There is a tiny 2 mm right lower lobe nodule (5:14). Findings are unchanged when compared to 11/09/2022. LIVER, GALLBLADDER, AND BILIARY TREE: The liver is normal in size, shape, and attenuation. No focal hepatic lesion or biliary ductal dilatation is present. The gallbladder is unremarkable with no evidence of radiopaque gallstones, gallbladder wall thickening, or obvious pericholecystic inflammatory changes. PANCREAS: Unremarkable. SPLEEN: Unremarkable. ADRENAL GLANDS: Unremarkable. KIDNEYS AND URETERS: Right Kidney: Again seen are 3 water density simple Bosniak class I cysts in the right kidney the largest measuring about 3 cm in size. These benign Bosniak class I cysts need no additional imaging or followup. In the mid right kidney posterolaterally at about 7 o'clock, there is the residua of the 1.4 cm cryoablated mass. On the current study, this appears less well defined and measures about 1.3 x 1.5 cm in maximal transverse dimension (5:117) but includes some inflammatory changes around it with thickening of the posterior pararenal fascia. There are 2 components of the mass. A medial lower attenuation area and a lateral higher attenuation area. On noncontrast images, these 2 areas measure -2 and 19 Hounsfield units and after IV contrast measure 4.9 and 21 Hounsfield units respectively. There is no significant enhancement. No nephrolithiasis. No hydronephrosis. Visualized portion of the right ureter is normal. Left Kidney: The left kidney and visualized ureter appear normal. GASTROINTESTINAL TRACT: The visualized bowel is unremarkable. ABDOMINAL WALL: No significant hernia is appreciated. LYMPH NODES: Normal. VASCULAR: Calcific atherosclerotic changes are present in the aorta and iliac vessels. There is no evidence of an abdominal aortic aneurysm. OSSEOUS STRUCTURES: Degenerative changes are present in the spine. IMPRESSION: 1. The cryoablated mass in the mid right kidney appears less well defined and measures about 1.3 x 1.5 cm in maximal transverse dimension. On the current study, this appears less well-defined but includes some inflammatory changes around it with thickening of the posterior pararenal fascia. There is no significant enhancement. 2. Other incidental findings as described above. Assessment & Plan Assessment & Plan (1) Renal angiomyolipoma: Code(s): D17.71 - Benign lipomatous neoplasm of kidney (2) BPH loc w urin obs/LUTS: Code(s): N40.1 - Benign prostatic hyperplasia with lower urinary tract symptoms (3) Nocturia: Code(s): R35.1 - Nocturia Plan Prescribed tamsulosin 0.4 mg daily. Printed script Follow-up, PSA prior Orders: Orders AMB Urinalysis Automated Today R33.9 - Retention of urine, unspecified Medications: Refilled tamsulosin 0.4 mg PO BEDTIME 90 days 90 caps 3RF Patient Instructions: The patient had an opportunity to ask questions regarding treatment plan. All questions were answered. Imaging, Laboratory studies and physical exam results were discussed and reviewed in detail. No major barriers to understanding were identified. The patient expressed understanding and agreement with the above treatment plan. The patient is aware they should contact our office by phone for worsening of their current condition or the appearance of new symptoms. Compliance is encouraged with any medications and followup testing that is ordered. It is a privilege to be allowed the opportunity to participate in the urologic care of your patient. If you have any questions or concerns regarding treatment for the above conditions please do not hesitate to contact me. The office telephone contact is [phone]. This note is constructed in part using voice recognition software. While every effort has been made to ensure accuracy asp net programmer errors may have been included. Yours sincerely, Camila Sellers MD Coding Level of Care Code Est Pt Level 4 (07980) Diagnoses Renal angiomyolipoma D17.71 BPH loc w urin obs/LUTS N40.1 Nocturia R35.1
== END 2023-04-24 10:57 | disposition home or self-care (01) ==
PROVIDERS: Visit Provider Urology
DX: D17.71 Benign lipomatous neoplasm of kidney (principal); N40.1 Benign prostatic hyperplasia with lower urinary tract symptoms; R35.1 Nocturia; R33.9 Retention of urine, unspecified
CPT/HCPCS: 99214

== ENCOUNTER → 2023-04-24 09:35 | Outpatient (BNVA) | payer OTHER, SELFPAY | PROVIDERS: Visit Provider Urology | DX: D17.71 Benign lipomatous neoplasm of kidney (principal); N40.1 Benign prostatic hyperplasia with lower urinary tract symptoms; R33.8 Other retention of urine; R35.1 Nocturia | CPT/HCPCS: 81003; 99212 ==

== ENCOUNTER → 2023-05-08 23:59 | Outpatient (BNV) | payer OTHER, SELFPAY ==
--- NOTE | 2023-05-08 11:43 | MHC.OFFVIS ---
Intake Intake Visit Reasons: Remote Device Check- [employer]tr[employer] Allergies Ykajexo-UPL-DbV Reductase Inhibitor [LCJTDOB-UPW-VLF REDUCTASE INHIBITOR] Adverse Reaction (Intermediate, Verified 04/24/23 10:03) LEG PAINS PFSH Medical History BRIAN on CPAP Normally functioning cardiac pacemaker present Type 2 diabetes mellitus with unspecified complications Essential hypertension Persistent atrial fibrillation Surgical History History of permanent cardiac pacemaker placement (~2006) Family History Father No problems noted. Mother No problems noted. 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 Overall normal device function. [id number] Cardiac Device Interrogation, pacemaker Procedure code (CPT) selection complete Assessment & Plan Assessment & Plan (1) Persistent atrial fibrillation: Code(s): I48.19 - Other persistent atrial fibrillation Plan x Coding Level of Care Code Procedure Only Diagnoses Persistent atrial fibrillation I48.19 CPT Codes Cardiac Device Check - Cardiac Device 12: [id number] Cardiac Device Interrogation, pacemaker ([id number])
== END ==
PROVIDERS: Visit Provider Internal Medicine
DX: I48.19 Other persistent atrial fibrillation (principal); Z95.0 Presence of cardiac pacemaker
CPT/HCPCS: 93294

== ENCOUNTER 2023-07-25 10:49 | Emergency (ER) | payer OTHER, SELFPAY ==
--- NOTE | ~2023-07-25 | US_ITS ---
EXAMINATION: US VENOUS ULTRASOUND WITH DOPPLER LOWER EXTREMITY, BILATERAL CLINICAL INFORMATION: Pain and swelling COMPARISON: None available. TECHNIQUE: Ultrasound of the deep veins is performed from the hip to the calf with compression sonography and color and pulse Doppler assessment. Spectral analysis with color-flow imaging is performed. Technically limited study due to edema. FINDINGS: RIGHT: There is normal venous compression and respiratory variation and augmented flow. The visualized common femoral vein, superficial femoral vein, profunda femoral vein, popliteal vein, and the posterior tibial vein shows no evidence of deep venous thrombosis the peroneal vein is not seen.. 4.0 x 1.8 x 2.4 cm Bauman's cyst is seen in the right popliteal fossa. LEFT: There is normal venous compression and respiratory variation and augmented flow. The visualized common femoral vein, superficial femoral vein, profunda femoral vein, popliteal vein, and the posterior tibial vein shows no evidence of deep venous thrombosis. The peroneal vein is not seen. 3.9 x 0.9 x 2.9 cm Bauman's cyst is seen in the left popliteal fossa. 3.9 x 0.9 x 2.9 cm benign-appearing lymph node with large fatty center and thin cortex is seen in the left thigh proximally US/US venous duplex LE BI IMPRESSION: 1. No DVT demonstrated in the bilateral lower extremity. 2. Bilateral Bauman's cyst.
--- NOTE | ~2023-07-25 | CT_ITS ---
EXAMINATION: CT CHEST, ABDOMEN AND PELVIS WITHOUT CONTRAST CLINICAL INFORMATION: Prior abnormal imaging. COMPARISON: Chest radiographs 07/25/2023 CT abdomen of 04/02/2023 TECHNIQUE: Multidetector volumetric imaging was performed of the chest, abdomen and pelvis without intravenous contrast. Oral contrast was not administered. Sagittal and coronal reformatted images were obtained on the technologist's workstation. This CT examination was performed using dose optimization techniques as appropriate, variously including the following: *Automated exposure control *Adjustment of mA and/or kV according to patient size (this includes techniques or standardized protocols for targeted exams where dose is matched to indication/reason for exam; i.e. extremities or head) *Use of iterative reconstruction technique DLP: 391 mGy-cm FINDINGS: CHEST: LUNGS: 8 mm cavitary nodule left upper lobe on image 207 of series 8. Bilateral lower lobe bronchial wall thickening and peribronchial ground glass opacities. Left lower lobe atelectasis. Elevated left hemidiaphragm. PLEURA: No pleural effusion. MEDIASTINUM: No bulky axillary, mediastinal or hilar lymphadenopathy. Great vessels are of normal caliber. Heart size is normal. No pericardial effusion. CORONARY ARTERY CALCIFICATION: Mild. CHEST WALL: Left chest wall pacing device. ABDOMEN AND PELVIS: ABDOMINAL AND PELVIC WALL: Unremarkable. LIVER AND BILIARY TREE: The noncontrast liver is unremarkable. No biliary ductal dilatation. GALLBLADDER: Unremarkable. PANCREAS: Unremarkable. SPLEEN: Not enlarged. Small perisplenic free fluid. ADRENAL GLANDS: No adrenal mass. KIDNEYS AND URETERS: Right renal cysts. No further imaging follow-up is needed. No hydronephrosis. No perinephric fluid collection. Lack of intravenous contrast limits evaluation. GASTROINTESTINAL TRACT: Wall thickening of the rectosigmoid colon. No small bowel obstruction. Appendix is within normal limits. Presacral stranding and edema. VASCULAR: Normal caliber abdominal aorta. The common and external iliac veins are dilated. LYMPH NODES: Enlarged left inguinal lymph node measures 2.9 x 1.8 cm. Enlarged left inguinal lymph node measures 2.0 x 1.3 cm. FREE FLUID: No free fluid. BLADDER: Unremarkable. PELVIC VISCERA: Marked enlargement of the prostate gland. The prostate gland measures 6.5 x 6.2 cm in transverse dimension. OSSEOUS STRUCTURES: There is permeative appearance of the L4 and L5 vertebral bodies. Advise correlation with nuclear medicine bone scan. There is increased sclerosis of bilateral femoral heads. CT/CT abdomen pelvis wo IV con IMPRESSION: Bilateral lower lobe bronchial wall thickening with peribronchial groundglass opacities. Infectious and inflammatory etiologies should be considered. Elevated left hemidiaphragm. Left basilar atelectasis. Wall thickening of the rectosigmoid colon with presacral stranding and edema. This may represent proctocolitis. Advise clinical correlation. Marked enlargement of the prostate gland. Advise correlation with PSA. Enlarged left inguinal lymph nodes. The left common and external iliac veins are dilated. No evidence of deep venous thrombosis on duplex ultrasound performed 07/25/2023. Permeative appearance of the L4 and L5 vertebral bodies. Advise correlation with nuclear medicine bone scan.
--- NOTE | ~2023-07-25 | XR_ITS ---
EXAMINATION: XR CHEST CLINICAL INFORMATION: Dyspnea. COMPARISON: None available. TECHNIQUE: Frontal view of the chest was obtained. FINDINGS: Low lung volumes. The left hemidiaphragm is elevated. There is a questionable masslike opacity within the medial aspect of the left lung base. Cardiac silhouette appears prominent. No large pleural effusion. Left chest wall permanent pacing device with leads partially imaged due to patient positioning. XR/XR chest 1V IMPRESSION: Questionable masslike opacity within the medial left lung base. Consider correlation with dedicated chest CT.
--- NOTE | 2023-07-25 10:53 | ECG_ITS ---
Test Reason : CP/CHF? Blood Pressure : / mmHG Vent. Rate : 080 BPM Atrial Rate : 234 BPM P-R Int : 000 ms QRS Dur : 138 ms QT Int : 372 ms P-R-T Axes : 000 -71 113 degrees QTc Int : 429 ms Ventricular-paced rhythm Abnormal ECG When compared with ECG of 03-SEP-2008 12:28, Vent. rate has decreased BY 11 BPM Referred By: Generic ED Physician Electronically Signed By:DA KNUTSON
[2023-07-25 10:59] VITALS: BP 155/99; PULSE 92; RESP 18; TEMP 36.4; O2SAT 98; BMI 35.2
--- NOTE | 2023-07-25 11:09 | ED.GENADULT ---
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 I have the EKG here he is clearly being paced there is no heart block. He tells me he has leg edema worsening x 2 weeks since they stopped his triamterene and he has gained 17lbs in 2+ days. He isn't sure about orthopnea as he uses his CPAP. He notes they stopped his triamterene and lisinopril because his BP in the clinic was low 2 weeks ago. MD complaint: leg edema Onset (ago): week(s) (2) Location: left, right and lower extremity Radiation: non-radiation Severity: moderate Relieving factors: none Exacerbating factors: none Associated symptoms: other (leg edema, weight gain) Treatments prior to arrival: none Related Data Home Medications ?Medication ?Instructions ?Recorded ?Confirmed allopurinol 300 mg tablet 300 mg PO DAILY 08/01/20 02/04/23 apixaban 5 mg tablet (Eliquis) 5 mg PO BID 08/01/20 02/04/23 cholecalciferol (vitamin D3) 25 25 mcg PO DAILY 08/01/20 02/04/23 mcg (1,000 unit) capsule cyanocobalamin (vitamin B-12) 1,000 mcg PO DAILY 08/01/20 02/04/23 1,000 mcg capsule ergocalciferol (vitamin D2) 1,250 1,250 mcg PO QWEEK 08/01/20 02/04/23 mcg (50,000 unit) capsule (Vitamin D2) metformin 1,000 mg tablet 1,000 mg PO BID 08/01/20 02/04/23 empagliflozin 25 mg tablet 12.5 mg PO DAILY 02/05/22 02/04/23 lisinopril 40 mg tablet 40 mg PO DAILY 02/05/22 02/04/23 rosuvastatin 20 mg tablet 10 mg PO DAILY 02/05/22 02/04/23 semaglutide 1 mg/dose (2 mg/1.5 1 mg subcut QWEEK 02/05/22 02/04/23 mL) subcutaneous pen injector gabapentin 300 mg capsule 300 mg PO DAILY 07/30/22 02/04/23 insulin aspart U-100 100 unit/mL 100 unit subcut DAILY 07/30/22 02/04/23 (3 mL) subcutaneous pen (Novolog FlexPen U-100 Insulin aspart) triamterene 37.5 0.5 cap PO DAILY 07/30/22 02/04/23 mg-hydrochlorothiazide 25 mg capsule Previous Rx's ?Medication ?Instructions ?Recorded metoprolol succinate 50 mg 50 mg PO DAILY #90 tabs 02/05/22 tablet,extended release 24 hr (Toprol XL) cyclobenzaprine 10 mg tablet 10 mg PO TID PRN muscle spasm #10 08/13/22 tabs cyclobenzaprine 10 mg tablet 10 mg PO TID PRN muscle spasm #14 08/13/22 tabs lidocaine 5 % topical patch 1 patch topical DAILY #15 ea 08/13/22 lidocaine 5 % topical patch 1 patch topical DAILY #15 ea 08/13/22 tamsulosin 0.4 mg capsule 0.4 mg PO BEDTIME 90 days #90 caps 04/24/23 Allergies Allergy/AdvReac Type Severity Reaction Status Date / Time Kvfnula-RMP-HaM Reductase AdvReac Intermediate LEG PAINS Verified 07/25/23 11:03 Inhibitor [HNNXJLP-GXP-GXF REDUCTASE INHIBITOR] Review of Systems Review of Systems: Constitutional : No Fever, No Chills, No Fatigue, pos weight gain ENT/Mouth : No sore throat, No Rhinorrhea Eyes: No Eye Pain, No Swelling, No Redness Cardiovascular : No Chest Pain, No SOB, No Dyspnea on Exertion, pos leg edema Respiratory : No Cough, No Sputum Gastrointestinal : No Nausea, No Vomiting, No Diarrhea, No abdominal Pain Genitourinary : No Dysuria, No Urinary Frequency, No Hematuria, Musculoskeletal : No joint pain, No Myalgias, No Joint Swelling Skin : No Skin Lesions, No rash Neuro : No Weakness, No Numbness, No Dizziness, no Headache Psych : No Anxiety/Panic, No Depression All other systems reviewed and are negative [facility] Past Medical History Attestation statement: The following information was validated with the patient. Source: old records reviewed Medical History BRIAN on CPAP Normally functioning cardiac pacemaker present Type 2 diabetes mellitus with unspecified complications Essential hypertension Persistent atrial fibrillation Surgical History History of permanent cardiac pacemaker placement (~2006) Family History Family History Father No problems noted. Mother No problems noted. Social History Social History Alcohol intake: never Patient Tobacco Use Status: Never used Tobacco Smoked in Last 30 Days: No Use of substances other than those prescribed or required for medical reasons: No Advance Directives: No Advance Directives Information Provided: Yes Physical Exam ED Vital Signs: Vital Signs - 24 hr 07/25/23 10:59 07/25/23 11:19 07/25/23 14:10 Temperature 97.6 F 97.6 F Pulse Rate 92 66 61 Respiratory Rate 18 14 16 Blood Pressure 155/99 H 128/70 150/90 H Pulse Oximetry 98 99 100 Oxygen Delivery Method Room Air Room Air Room Air BMI result Body Mass Index 35.2 Appearance: Alert. Oriented X3. No acute distress. Eyes: Pupils equal, round and reactive to light. ENT: Pharynx normal. Neck: Normal inspection. Neck supple. CVS: Normal heart rate and rhythm. Pulses normal. Respiratory: No respiratory distress. Breath sounds rales in bases noted Abdomen: Soft and nontender. Skin: Skin warm and dry. Normal skin color. Normal skin turgor. Extremities: bilateral 2+ pitting lower extremity edema. No calf ttp Neuro: Oriented X 3. No motor deficit. No sensory deficit. Course Course Course Narrative: put out 800cc of urine after IV lasix signed out to Dr. 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 He notes no CP he is compliant with his eliquis. He has gained 17lbs in 2 days he gets weighed every day at the [facility]. At this time will need labs, EKG, troponin and BNP, CXR for edema. His EKG DOES NOT show heart block he has pacer spikes before every QRS. Likely admit for volume overload Differential Diagnosis Differential Diagnoses: The differential diagnosis associated with the presentation includes CHF, leg edema Admission/Observation Consideration of admission/observation: Escalation of care including admission/observation considered will need admission for diuresis Consult Healthcare Provider Management of the patient was discussed with: Hospitalist (will admit) Lab Data [facility] Lab Attestation statement: I reviewed the patient's lab results. 07/25/23 11:25 07/25/23 11:25 Labs: Lab Results 07/25/23 07/25/23 Range/Units 11:25 12:46 WBC 4.7 L (4.8-10.8) X10*3/uL RBC 4.26 L (4.60-5.80) X10*6/uL Hgb 13.0 L (14.0-18.0) g/dl Hct 38.9 L (42.0-52.0) % MCV 91.3 (80.0-98.0) fL MCH 30.5 (27.0-33.0) pg MCHC 33.4 (31.0-36.0) g/dl RDW 15.2 (11.0-16.0) % Plt Count 202 D (160-400) X10*3/uL MPV 9.3 L (9.4-12.4) fL Immature Gran % (Auto) 0.2 (0.0-0.4) % Neut % (Auto) 69.2 (45-73) % Lymph % (Auto) 21.2 (20-40) % Hunt % (Auto) 7.5 (2-11) % Eos % (Auto) 1.3 (0-4) % Baso % (Auto) 0.6 (0-2) % Lymph # (Auto) 1.0 L (1.2-4.9) X10*3/uL Hunt # (Auto) 0.4 (0.1-1.2) X10*3/uL Eos # (Auto) 0.1 (0.0-0.4) X10*3/uL Baso # (Auto) 0.0 (0.0-0.2) X10*3/uL Abs Immat Gran (auto) 0.01 (0.00-0.03) X10*3/uL Absolute Neuts (auto) 3.2 (2.0-8.3) x10*3/uL Absolute Nucleated RBC 0.000 (0.0-0.012) X10*3/uL Nucleated RBC % (auto) 0.0 (0.0-0.2) /100WBC Sodium 142 (135-145) mmol/L Potassium 3.4 (3.3-5.1) mmol/L Chloride 109 H (96-108) mmol/L Carbon Dioxide 24 (22-29) mmol/L Anion Gap 12 (12-20) BUN 8 L (9-16) mg/dL Creatinine 0.77 (0.5-1.4) mg/dL Estim Creat Clear Calc 110.7 Estimated GFR > 60 Random Glucose 83 (60-115) mg/dL Calcium 10.2 D (8.4-10.2) mg/dL Magnesium 1.6 (1.6-2.6) mg/dL Total Bilirubin 1.5 H (0.0-1.0) mg/dL Direct Bilirubin 0.5 (0.0-0.5) mg/dL AST 16 (5-37) U/L ALT 15 (0-40) U/L Alkaline Phosphatase 72 (39-117) U/L Troponin I High Sens 2.9 (<3.5-35.0) ng/L B-Natriuretic Peptide 140 H (<100) pg/mL Total Protein 6.8 (6.5-8.0) g/dL Albumin 3.5 (3.5-5.0) g/dL TSH 2.22 (0.32-4.0) uIU/mL Urine Color Yellow Urine Appearance Clear Urine pH 6.5 (5.0-9.0) Ur Specific [place] 1.015 (1.005-1.025) Urine Protein Negative (Neg-Trace) mg/dL Urine Glucose (UA) >=1000 H (Negative) mg/dL Urine Ketones Negative (Negative) mg/dL Urine Blood Negative (Negative) Urine Nitrite Negative (Negative) Ur Leukocyte Esterase Negative (Negative) Urine RBC 0-2 (0-2) /HPF Urine WBC 0-5 (0-5) /HPF Ur Squamous Epith Cells 0-2 (0-2) /HPF Urine Bacteria None Seen (None Seen) Hyaline Casts 0-2 (0-2) /LPF Influenza Type A (PCR) NEGATIVE (Negative) Influenza Type B (PCR) NEGATIVE (Negative) RSV RNA Qual (PCR) NEGATIVE (Negative) SARS-CoV-2 RNA (RT-PCR) NEGATIVE (Negative) Independent Interpretation I performed an independent interpretation of an: EKG, Plain X-Ray (mass noted), Ultrasound (no DVT) and CT Scan Interpretation: Rate: 80 Rhythm: ventricular paced [place]: left wide qrs ST T wave : no JESSICA, inverted t waves I and aVL qTC: 429 prior studies: no acute ischemia The study has been interpreted contemporaneously by me. . Radiology Impression Discussion of test interpretation with radiology: I have reviewed the radiologist's reading. Independent Historian Clinical information obtained from an independent historian. History obtained from or confirmed by: EMS External Record Review External record reviewed: Inpatient record and Outpatient record Discharge Plan Discharge Clinical Impression: Leg edema Volume overload Qualifiers: Hypervolemia type: unspecified Qualified Code(s): E87.70 - Fluid overload, unspecified Patient Disposition: Admitted As Inpatient Print Language: Filipino
[2023-07-25 11:19] VITALS: BP 128/70; PULSE 66; RESP 14; O2SAT 99
--- NOTE | 2023-07-25 11:28 | PC.NURSE ---
a&ox4. vss and up to date. nsr on the monitor and storage bin tender. paced. pt presents to ED after visit w/ [facility] d/t abnormal ekg. pt states 17lb weight increase x 2 days. pt states he's noticed an increase in LE edema x 2 weeks. 3+ pitting edema noted in LE bilaterally. pt states increased pain while ambulating w/ cane. no sob/wob noted. respirations even and unlabored. pt positioned upright. 20gIV placed in the right forearm - labs obtained/sent to lab. pt seen by ED provider/aware of plan of care moving forward. pt waiting for xray to be completed. plan of care ongoing. call quintanilla placed within reach.
[2023-07-25 11:38] LABS: MANUAL DIFF FLAG NO
[2023-07-25 11:42] LABS: Basophils Percent Auto 0.6 % (0-2); Eosinophils Absolute Auto 0.1 X10*3/uL (0.0-0.4); Eosinophils Percent Auto 1.3 % (0-4); Hematocrit 38.9 % (42.0-52.0); Imm Gran Abs Auto 0.01 X10*3/uL (0.00-0.03); Imm Gran Pct Auto 0.2 % (0.0-0.4); Lymphocytes Percent Auto 21.2 % (20-40); Mean Corpuscular HGB Conc 33.4 g/dl (31.0-36.0); Mean Corpuscular Hemoglobin 30.5 pg (27.0-33.0); Mean Corpuscular Volume 91.3 fL (80.0-98.0); Mean Platelet Volume 9.3 fL (9.4-12.4); Monocytes Absolute Auto 0.4 X10*3/uL (0.1-1.2); Monocytes Percent Auto 7.5 % (2-11); Neutrophils Absolute Auto 3.2 x10*3/uL (2.0-8.3); Neutrophils Percent Auto 69.2 % (45-73); Platelet Count 202 X10*3/uL (160-400); Red Blood Count 4.26 X10*6/uL (4.60-5.80); Red Cell Distribution Width 15.2 % (11.0-16.0); White Blood Count 4.7 X10*3/uL (4.8-10.8)
[2023-07-25 11:55] LABS: Alanine Aminotransferase 15 U/L (0-40); Albumin Level 3.5 g/dL (3.5-5.0); Alkaline Phosphatase 72 U/L (39-117); Anion Gap 12 (12-20); Aspartate Amino Transferase 16 U/L (5-37); Bilirubin Direct 0.5 mg/dL (0.0-0.5); Bilirubin Total 1.5 mg/dL (0.0-1.0); Blood Urea Nitrogen 8 mg/dL (9-16); Calcium 10.2 mg/dL (8.4-10.2); Carbon Dioxide 24 mmol/L (22-29); Chloride 109 mmol/L (96-108); Creatinine Clr Calc Pharmacy 110.7; Estimated Glomerular Filt Rate > 60; Glucose Random 83 mg/dL (60-115); Magnesium 1.6 mg/dL (1.6-2.6); Potassium 3.4 mmol/L (3.3-5.1); Sodium 142 mmol/L (135-145); Total Protein 6.8 g/dL (6.5-8.0)
[2023-07-25 11:59] LABS: B Type Natriuretic Peptide 140 pg/mL (<100)
[2023-07-25 12:03] LABS: Troponin-I High Sensitivity 2.9 ng/L (<3.5-35.0)
[2023-07-25] MEDS: Furosemide 40 MG/4 ML VIAL IVPUSH (12:09)
--- NOTE | 2023-07-25 12:12 | PC.NURSE ---
medication administered per provider order. urinal placed bedside. effectiveness pending.
[2023-07-25 12:19] LABS: Influenza A PCR NEGATIVE (Negative); Influenza B PCR NEGATIVE (Negative); Resp Syncy Virus RNA Qual PCR NEGATIVE (Negative); SARS COV2 PCR INHOUSE NEGATIVE (Negative)
[2023-07-25 12:53] LABS: Appearance Urine Clear; Color Urine Yellow; Glucose Urine UA >=1000 mg/dL (Negative); Leukocyte Esterase Urine Negative (Negative); Nitrite Urine Negative (Negative); PH 6.5 (5.0-9.0); Specific Gravity - Urine 1.015 (1.005-1.025); UMIC TRIGGER UACC YES; Urine Blood Negative (Negative); Urine Ketones Negative (Negative); Urine Protein Negative (Neg-Trace)
[2023-07-25 12:58] LABS: Bacteria Urine None Seen (None Seen); Hyaline Casts Urine 0-2 /LPF (0-2); RBC Urine 0-2 /HPF (0-2); Squamous Epithelial Cell Urine 0-2 /HPF (0-2); WBC Urine 0-5 /HPF (0-5)
[2023-07-25 13:16] LABS: TSH reflex Free T4 2.22 uIU/mL (0.32-4.0)
[2023-07-25 14:10] VITALS: BP 150/90; PULSE 61; RESP 16; TEMP 36.4; O2SAT 100
--- NOTE | 2023-07-25 14:11 | PC.NURSE ---
vss and up to date. nsr on the manager cardiac cath - paced. US completed at this time. 1500ml of clear/pale yellow urine documented in I&O section. pt continues to rest comfortably in no apparent distress. denies pain. respirations remain even and unlabored. call quintanilla placed within reach.
[2023-07-25 17:10] LABS: C Reactive Protein 0.88 mg/dL (< or = 0.50)
[2023-07-25 18:19] VITALS: BP 140/76; PULSE 64; RESP 15; TEMP 36.5; O2SAT 97
[2023-07-25 18:40] VITALS: BP 140/76; PULSE 64; RESP 15; TEMP 36.5; O2SAT 97
== END 2023-07-25 18:42 | disposition home or self-care (01) ==
PROVIDERS: Emergency Medicine; Emergency Provider Emergency Medicine; PCP Internal Medicine
DX: E87.70 Fluid overload, unspecified (principal); R60.0 Localized edema; R06.00 Dyspnea, unspecified; M79.605 Pain in left leg; M79.604 Pain in right leg; E11.9 Type 2 diabetes mellitus without complications; I10 Essential (primary) hypertension; E78.5 Hyperlipidemia, unspecified; I48.19 Other persistent atrial fibrillation; Z79.01 Long term (current) use of anticoagulants; Z79.84 Long term (current) use of oral hypoglycemic drugs; Z79.02 Long term (current) use of antithrombotics/antiplatelets; Z79.4 Long term (current) use of insulin; Z79.899 Other long term (current) drug therapy; Z95.0 Presence of cardiac pacemaker; Z03.818 Encounter for observation for suspected exposure to other biological agents ruled out
CPT/HCPCS: 0241U; 36415; 71045; 71250; 74176; 80048; 80076; 81001; 83735; 83880; 84443; 84484; 85025; 86140; 93005; 93970; 96374; 99284; 99285; J1940

== ENCOUNTER → 2023-07-25 10:53 | Outpatient (BNV) | payer OTHER, MEDICARE, SELFPAY | PROVIDERS: Emergency Provider Emergency Medicine; PCP Internal Medicine; Visit Provider Internal Medicine | DX: R07.9 Chest pain, unspecified (principal) | CPT/HCPCS: 93010 ==

== ENCOUNTER → 2023-08-07 23:59 | Outpatient (BNV) | payer OTHER, SELFPAY ==
--- NOTE | 2023-08-19 11:52 | A.OFFVIS_ITS ---
Intake Visit Reasons: Remote device check- [employer] Allergies Hjmijmk-TBD-ImU Reductase Inhibitor [NCYAVXG-MHT-WPG REDUCTASE INHIBITOR] Adverse Reaction (Intermediate, Verified 07/25/23 11:03) LEG PAINS PFSH Medical History BRIAN on CPAP Normally functioning cardiac pacemaker present Type 2 diabetes mellitus with unspecified complications Essential hypertension Persistent atrial fibrillation Surgical History History of permanent cardiac pacemaker placement (~2006) Family History Father No problems noted. Mother No problems noted. 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 Overall normal device function. [id number] Cardiac Device Interrogation, pacemaker Procedure code (CPT) selection complete Assessment & Plan Assessment & Plan (1) PAF (paroxysmal atrial fibrillation): Code(s): I48.0 - Paroxysmal atrial fibrillation Category: Medical Plan x Coding Level of Care Code Procedure Only Diagnoses PAF (paroxysmal atrial fibrillation) I48.0 CPT Codes Cardiac Device Check - Cardiac Device 12: [id number] Cardiac Device Interrogation, pacemaker ([id number])
== END ==
PROVIDERS: PCP Internal Medicine; Visit Provider Internal Medicine
DX: I48.0 Paroxysmal atrial fibrillation (principal); Z95.0 Presence of cardiac pacemaker
CPT/HCPCS: 93294

== ENCOUNTER 2023-08-09 09:48 | Outpatient (REF) | payer OTHER, SELFPAY ==
[2023-08-09 11:57] LABS: PSA,Total (Free>4and<10) 3.13 ng/mL (0.00-4.00)
== END 2023-08-09 09:49 | disposition home or self-care (01) ==
LOC: HO.LAB 09:48
PROVIDERS: Visit Provider Urology
DX: N40.1 Benign prostatic hyperplasia with lower urinary tract symptoms (principal); Z12.5 Encounter for screening for malignant neoplasm of prostate
CPT/HCPCS: 36415; 84153

== ENCOUNTER 2023-08-21 14:31 | Outpatient (AMB) | payer OTHER, SELFPAY ==
--- NOTE | 2023-08-21 14:39 | MHC.OFFVIS ---
Intake Visit Reasons: 3m/PSA Intake Note: Patient presents today for a follow-up on PSA Results: Meds- Tamsulosin Allergies to Antibiotic- No Known Allergies Blood Thinner- Eliquis Post Void Residual: 86 mL Hide Stretcher Hand Required: No Accompanied by: Significant Other Allergies Fblyyfd-WXB-KlX Reductase Inhibitor [NRNMIYP-ZYR-QKZ REDUCTASE INHIBITOR] Adverse Reaction (Intermediate, Verified 07/25/23 11:03) LEG PAINS Medication List - Last Reconciled 08/21/23 by Camila Sellers MD allopurinol 300 mg PO DAILY apixaban (Eliquis) 5 mg PO BID cholecalciferol (vitamin D3) 25 mcg PO DAILY cyanocobalamin (vitamin B-12) 1,000 mcg PO DAILY cyclobenzaprine 10 mg PO TID PRN cyclobenzaprine 10 mg PO TID PRN empagliflozin 12.5 mg PO DAILY ergocalciferol (vitamin D2) (Vitamin D2) 1,250 mcg PO QWEEK gabapentin 300 mg PO DAILY insulin aspart U-100 (Novolog FlexPen U-100 Insulin aspart) 100 units subcut DAILY lidocaine 5% 1 patch topical DAILY lidocaine 5% 1 patch topical DAILY lisinopril 40 mg PO DAILY metformin 1,000 mg PO BID metoprolol succinate ER (Toprol XL) 50 mg PO DAILY rosuvastatin 10 mg PO DAILY semaglutide 1 mg subcut QWEEK tamsulosin 0.4 mg PO BEDTIME 90 days triamterene-hydrochlorothiazid 37.5-25 mg 0.5 caps PO DAILY HPI Comments Details: 08/21/23--Daniel is a 78-year-old male who presents today to the office for a follow-up. He is status post renal biopsy and cryoablation, 12/24/2022, pathology renal angiomyolipoma. He had been seen for elevated PSA and BPH symptoms and was started on tamsulosin. Follow-up PSA, 08/09/2023 is 3.13 ng/mL. The patient states that earlier this month he was seen in the emergency room for a low blood pressure and his blood pressure medications were adjusted. He was concerned about the tamsulosin contributing to the low blood pressure. He ran out of the prescription about 2 weeks ago and is waiting for it to be refilled by the [facility]. He states he has seen his PCP since the emergency room visit and they have all of his medications. Urinalysis is within normal limits bladder scan PVR 86 mL. Will have him follow-up in 6 months. Review of chart: 04/24/2023--Daniel was initially sent for evaluation due to right renal mass. 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 I have reviewed results of recent CT scan of 04/02/2023 the cryo ablated mass has no significant enhancement. As the renal biopsy indicated an angiomyolipoma, dedicated follow-up imaging is not indicated. The patient was started on tamsulosin for lower urinary tract symptoms secondary to BPH he states he did not get the medication. He states that he fills medications at the [facility] pharmacy. 04/02/23--CTAP The cryoablated mass in the mid right kidney appears less well defined and measures about 1.3 x 1.5 cm in maximal transverse dimension. On the current study, this appears less well-defined but includes some inflammatory changes around it with thickening of the posterior pararenal fascia. There is no significant enhancement. 01/07/23: He states that he is getting up at 3-4 times at night to urinate. AUA score - 15. s/p renal bx and cryoablation on 12/24/22. renal biopsy done on 12/24/22 --revealed angiomyolipoma. Plan, Prescribed tamsulosin 0.4 mg daily. Printed script. Follow-up, PSA prior 11/09/22--CT of the abdomen with and without IV contrast results revealed a 1.3 cm partially solid partially cystic lesion exophytic to the posterior lateral lower pole of the right kidney. (Appearance is concerning for renal neoplasm). PSA results from 10/05/2022 revealed 3.43. [facility] Medical History BRIAN on CPAP Normally functioning cardiac pacemaker present Type 2 diabetes mellitus with unspecified complications Essential hypertension Persistent atrial fibrillation Surgical History History of permanent cardiac pacemaker placement (~2006) Family History Father No problems noted. Mother No problems noted. Social History Alcohol intake: never Patient Tobacco Use Status: Never used Tobacco Review of Systems Const All systems reviewed & are unremarkable except as noted in HPI and below Reports no additional complaints Eyes Reports no additional complaints ENT Reports no additional complaints Card Reports no additional complaints Resp Reports no additional complaints GI Reports no additional complaints Reports as per HPI Musc Reports no additional complaints Skin/Breast Reports system reviewed and no additional complaints, except as documented Neuro Reports no additional complaints Psych Reports no additional complaints Endo Reports no additional complaints Gael/Lymph Reports no additional complaints Aller/Immun Reports no additional complaints Office Procedures Post Void Residual Post Residual Void Post Void Residual (PVR): 86 [id number] Void Residual by ultrasound Results AMB Urinalysis, Automated UA Leukoctes 0 Eliz/uL Last Edit by Papito Edwards [facility] on 08/21/23 15:06 UA Nitrite Negative Last Edit by Papito Edwards [facility] on 08/21/23 15:06 UA Urobilinogen 0.2 mg/dL Last Edit by Papito Edwards [facility] on 08/21/23 15:06 UA Protein 15 mg/dL Last Edit by Papito Edwards [facility] on 08/21/23 15:06 UA pH 6.0 Last Edit by Papito Edwards [facility] on 08/21/23 15:06 UA Blood 0 Myke/uL Last Edit by Papito Edwards [facility] on 08/21/23 15:06 UA Specific [place] 1.010 Last Edit by Papito Edwards [facility] on 08/21/23 15:06 UA Ketone Negative Last Edit by Papito Edwards [facility] on 08/21/23 15:06 UA Bilirubin 0 mg/dL Last Edit by Papito Edwards [facility] on 08/21/23 15:06 UA Glucose 1000 mg/dL Last Edit by Papito Edwards [facility] on 08/21/23 15:06 3+ Papito Edwards 08/21/23 15:06 Results Reviewed Results Reviewed: Laboratory Last Values Urine pH (Auto) 6.0 08/21/23 15:05 Specific [place] (Auto) 1.010 08/21/23 15:05 Urine Protein (Auto) 15 mg/dL 08/21/23 15:05 Glucose (UA)(Auto) 1000 mg/dL 08/21/23 15:05 Urine Ketones (Auto) Negative 08/21/23 15:05 Urine Blood (Auto) 0 Myke/uL 08/21/23 15:05 Urine Nitrite (Auto) Negative 08/21/23 15:05 Urine Bilirubin (Auto) 0 mg/dL 08/21/23 15:05 Urine Urobilinogen (Auto) 0.2 mg/dL 08/21/23 15:05 Leukocyte Esterase (Auto) 0 Eliz/uL 08/21/23 15:05 Date of Service: 04/02/23 EXAMINATION: CT ABDOMEN WITHOUT AND WITH CONTRAST CLINICAL INFORMATION: Status post cryoablation of right lower pole renal neoplasm. COMPARISON: CT abdomen 11/07/2022, CT-guided renal ablation 10/24/2022. FINDINGS: LUNG BASES: Dual leads from a bipolar pacemaker are present. The left hemidiaphragm is elevated. Scarring and traction bronchiectasis is present at the lung bases. Calcified granuloma seen at the right lung base. There is a tiny 2 mm right lower lobe nodule (5:14). Findings are unchanged when compared to 11/09/2022. LIVER, GALLBLADDER, AND BILIARY TREE: The liver is normal in size, shape, and attenuation. No focal hepatic lesion or biliary ductal dilatation is present. The gallbladder is unremarkable with no evidence of radiopaque gallstones, gallbladder wall thickening, or obvious pericholecystic inflammatory changes. PANCREAS: Unremarkable. SPLEEN: Unremarkable. ADRENAL GLANDS: Unremarkable. KIDNEYS AND URETERS: Right Kidney: Again seen are 3 water density simple Bosniak class I cysts in the right kidney the largest measuring about 3 cm in size. These benign Bosniak class I cysts need no additional imaging or followup. In the mid right kidney posterolaterally at about 7 o'clock, there is the residua of the 1.4 cm cryoablated mass. On the current study, this appears less well defined and measures about 1.3 x 1.5 cm in maximal transverse dimension (5:117) but includes some inflammatory changes around it with thickening of the posterior pararenal fascia. There are 2 components of the mass. A medial lower attenuation area and a lateral higher attenuation area. On noncontrast images, these 2 areas measure -2 and 19 Hounsfield units and after IV contrast measure 4.9 and 21 Hounsfield units respectively. There is no significant enhancement. No nephrolithiasis. No hydronephrosis. Visualized portion of the right ureter is normal. Left Kidney: The left kidney and visualized ureter appear normal. GASTROINTESTINAL TRACT: The visualized bowel is unremarkable. ABDOMINAL WALL: No significant hernia is appreciated. LYMPH NODES: Normal. VASCULAR: Calcific atherosclerotic changes are present in the aorta and iliac vessels. There is no evidence of an abdominal aortic aneurysm. OSSEOUS STRUCTURES: Degenerative changes are present in the spine. IMPRESSION: 1. The cryoablated mass in the mid right kidney appears less well defined and measures about 1.3 x 1.5 cm in maximal transverse dimension. On the current study, this appears less well-defined but includes some inflammatory changes around it with thickening of the posterior pararenal fascia. There is no significant enhancement. 2. Other incidental findings as described above. Assessment & Plan Assessment & Plan (1) Renal angiomyolipoma: Code(s): D17.71 - Benign lipomatous neoplasm of kidney Category: Medical (2) BPH loc w urin obs/LUTS: Code(s): N40.1 - Benign prostatic hyperplasia with lower urinary tract symptoms Category: Medical (3) Nocturia: Code(s): R35.1 - Nocturia Category: Medical Plan FU in 6 months, cont Tamsulosin Orders: Orders AMB Post Void Residual by ultrasound Today N39.8 - Other specified disorders of urinary system AMB Urinalysis Automated Today Z13.9 - Encounter for screening, unspecified Patient Instructions: The patient had an opportunity to ask questions regarding treatment plan. The patient expressed understanding and agreement with the above treatment plan. The patient is aware they should contact our office by phone for worsening of their current condition or the appearance of new symptoms. Compliance is encouraged with any medications and followup testing that is ordered. It is a privilege to be allowed the opportunity to participate in the urologic care of your patient. If you have any questions or concerns regarding treatment for the above conditions please do not hesitate to contact me. The office telephone contact is [phone]. This note is constructed in part using voice recognition software. While every effort has been made to ensure accuracy sales forecast analyst errors may have been included. Yours sincerely, Camila Sellers MD Coding Level of Care Code Est Pt Level 3 (66759) Complex EM visit Add On G2211 Diagnoses Renal angiomyolipoma D17.71 BPH loc w urin obs/LUTS N40.1 Nocturia R35.1 CPT Codes Post Residual Void - PVR CPT Code: 03524-Osrz Void Residual by ultrasound ([id number])
== END 2023-08-21 15:29 | disposition home or self-care (01) ==
PROVIDERS: Visit Provider Urology
DX: D17.71 Benign lipomatous neoplasm of kidney (principal); N40.1 Benign prostatic hyperplasia with lower urinary tract symptoms; R35.1 Nocturia; Z13.9 Encounter for screening, unspecified
CPT/HCPCS: 99213; G2211

== ENCOUNTER → 2023-08-21 14:31 | Outpatient (BNVA) | payer OTHER, SELFPAY | PROVIDERS: Visit Provider Urology | DX: D17.71 Benign lipomatous neoplasm of kidney (principal); N40.1 Benign prostatic hyperplasia with lower urinary tract symptoms; R35.1 Nocturia | CPT/HCPCS: 51798; 81003; 99212 ==

== ENCOUNTER → 2023-11-06 23:59 | Outpatient (BNV) | payer OTHER, SELFPAY ==
--- NOTE | 2023-11-14 09:16 | MHC.OFFVIS ---
Intake Visit Reasons: Remote device check- [employer] Allergies Mxgxisu-GCP-AoY Reductase Inhibitor [OCBQYUS-GTA-YER REDUCTASE INHIBITOR] Adverse Reaction (Intermediate, Verified 07/25/23 11:03) LEG PAINS PFSH Medical History BRIAN on CPAP Normally functioning cardiac pacemaker present Type 2 diabetes mellitus with unspecified complications Essential hypertension Persistent atrial fibrillation Surgical History History of permanent cardiac pacemaker placement (~2006) Family History Father No problems noted. Mother No problems noted. Social History Alcohol intake: never Patient Tobacco Use Status: Never used Tobacco Office Procedures Cardiac Device Check Cardiac Device Check Details: Date of service- 11/06/2023 ; Battery life >3 years; normal lead parameters; V paced >99%. Overall normal device function. [id number] Cardiac Device Interrogation, pacemaker Procedure code (CPT) selection complete Assessment & Plan Assessment & Plan (1) Persistent atrial fibrillation: Code(s): I48.19 - Other persistent atrial fibrillation Category: Medical Plan x Coding Level of Care Code Procedure Only Diagnoses Persistent atrial fibrillation I48.19 CPT Codes Cardiac Device Check - Cardiac Device 12: [id number] Cardiac Device Interrogation, pacemaker ([id number])
== END ==
PROVIDERS: Visit Provider Internal Medicine
DX: I48.19 Other persistent atrial fibrillation (principal); Z95.0 Presence of cardiac pacemaker
CPT/HCPCS: 93294

== ENCOUNTER 2024-03-26 09:48 | Outpatient (AMB) | payer OTHER, SELFPAY ==
--- NOTE | 2024-03-25 20:05 | A.OFFVIS_ITS ---
Intake Visit Reasons: 6m follow up Intake Note: Patient is present for 6m F/U Urology Medication:TAMSULOSIN,ALLOPURINOL,VITAMIN B12 Antibiotic Allergy:NONE Blood Thinner:APIXABAN [employer] Required: No Allergies Jgjahiy-NBZ-LlI Reductase Inhibitor [ZRNGPAO-CWH-XNA REDUCTASE INHIBITOR] Adverse Reaction (Intermediate, Verified 03/26/24 09:56) LEG PAINS HPI Comments Details: 03/26/24--Daniel is a 78-year-old male who presents today to the office for a follow-up. He is status post renal biopsy and cryoablation, 12/24/2022, pathology renal angiomyolipoma. As the renal biopsy indicated an angiomyolipoma, dedicated follow-up imaging is not indicated. He had been seen for elevated PSA and BPH symptoms and was started on tamsulosin. Follow-up PSA, 08/09/2023 is 3.13 ng/mL. He states that he fills medications at the [place] [facility]. He states he goes frequently doing the day. Urinalysis 3+ glucose. Recommend continue tamsulosin 0.4 mg at bedtime. Follow-up in 6 months PSA prior. Review of chart: 08/21/23--Daniel is a 78-year-old male who presents today to the office for a follow-up. He is status post renal biopsy and cryoablation, 12/24/2022, pathology renal angiomyolipoma. He had been seen for elevated PSA and BPH symptoms and was started on tamsulosin. Follow-up PSA, 08/09/2023 is 3.13 ng/mL. The patient states that earlier this month he was seen in the emergency room for a low blood pressure and his blood pressure medications were adjusted. He was concerned about the tamsulosin contributing to the low blood pressure. He ran out of the prescription about 2 weeks ago and is waiting for it to be refilled by the [facility]. He states he has seen his PCP since the emergency room visit and they have all of his medications. Urinalysis is within normal limits bladder scan PVR 86 mL. Will have him follow-up in 6 months. 04/24/2023--Daniel was initially sent for evaluation due to right renal mass. 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 I have reviewed results of recent CT scan of 04/02/2023 the cryo ablated mass has no significant enhancement. As the renal biopsy indicated an angiomyolipoma, dedicated follow-up imaging is not indicated. The patient was started on tamsulosin for lower urinary tract symptoms secondary to BPH he states he did not get the medication. He states that he fills medi cations at the [place] pharmacy. 04/02/23--CTAP The cryoablated mass in the mid right kidney appears less well defined and measures about 1.3 x 1.5 cm in maximal transverse dimension. On the current study, this appears less well-defined but includes some inflammatory changes around it with thickening of the posterior pararenal fascia. There is no significant enhancement. 01/07/23: He states that he is getting up at 3-4 times at night to urinate. AUA score - 15. s/p renal bx and cryoablation on 12/24/22. renal biopsy done on 12/24/22 --revealed angiomyolipoma. Plan, Prescribed tamsulosin 0.4 mg daily. Printed script. Follow-up, PSA prior 11/09/22--CT of the abdomen with and without IV contrast results revealed a 1.3 cm partially solid partially cystic lesion exophytic to the posterior lateral lower pole of the right kidney. (Appearance is concerning for renal neoplasm). PSA results from 10/05/2022 revealed 3.43. [facility] Medical History BRIAN on CPAP Normally functioning cardiac pacemaker present Type 2 diabetes mellitus with unspecified complications Essential hypertension Persistent atrial fibrillation Surgical History History of permanent cardiac pacemaker placement (~2006) Family History Father No problems noted. Mother No problems noted. Social History Alcohol intake: never Patient Tobacco Use Status: Never used Tobacco Review of Systems Const All systems reviewed & are unremarkable except as noted in HPI and below Reports no additional complaints Eyes Reports no additional complaints ENT Reports no additional complaints Card Reports no additional complaints Resp Reports no additional complaints GI Reports no additional complaints Reports as per HPI Musc Reports no additional complaints Skin/Breast Reports system reviewed and no additional complaints, except as documented Neuro Reports no additional complaints Psych Reports no additional complaints Endo Reports no additional complaints Gael/Lymph Reports no additional complaints Aller/Immun Reports no additional complaints Results AMB Urinalysis, Automated UA Leukoctes 0 Eliz/uL Last Edit by ONEL Martinez on 03/26/24 10:02 UA Nitrite Negative Last Edit by Sarai Dye [facility] on 03/26/24 10:02 UA Urobilinogen 0.2 mg/dL Last Edit by Sarai Dye [facility] on 03/26/24 10:0 2 UA Protein 0 mg/dL Last Edit by Sarai Dye [facility] on 03/26/24 10:02 UA pH 6.0 Last Edit by Sarai Dye [facility] on 03/26/24 10:02 UA Blood 0 Myke/uL Last Edit by Sarai Dye [facility] on 03/26/24 10:02 UA Specific [place] 1.010 Last Edit by Sarai Dye [facility] on 03/26/24 10: 02 UA Ketone Negative Last Edit by Sarai Dye [facility] on 03/26/24 10:02 UA Bilirubin 0 mg/dL Last Edit by Sarai Dye [facility] on 03/26/24 10:02 UA Glucose 1000 mg/dL Last Edit by Sarai Dye [facility] on 03/26/24 10:02 Assessment & Plan Assessment & Plan (1) BPH loc w urin obs/LUTS: Code(s): N40.1 - Benign prostatic hyperplasia with lower urinary tract symptoms Category: Medical (2) Renal angiomyolipoma: Code(s): D17.71 - Benign lipomatous neoplasm of kidney Category: Medical (3) Nocturia: Code(s): R35.1 - Nocturia Category: Medical Plan FU in 6 months, cont Tamsulosin. PSA prior. Orders: Orders PSA,Total (Free>4and<10) 5 Months N40.1 - Benign prostatic hyperplasia with lower urinary tract symptoms AMB Urinalysis Automated Today Z13.9 - Encounter for screening, unspecified Patient Instructions: The patient had an opportunity to ask questions regarding treatment plan. The patient expressed understanding and agreement with the above treatment plan. The patient is aware they should contact our office by phone for worsening of their current condition or the appearance of new symptoms. Compliance is encouraged with any medications and followup testing that is ordered. It is a privilege to be allowed the opportunity to participate in the urologic care of your patient. If you have any questions or concerns regarding treatment for the above conditions please do not hesitate to contact me. The office telephone contact is [phone]. This note is constructed in part using voice recognition software. While every effort has been made to ensure accuracy principal technical architect errors may have been included. Yours sincerely, Camila Sellers MD Coding Level of Care Code Est Pt Level 4 (91779) Diagnoses BPH loc w urin obs/LUTS N40.1 Renal angiomyolipoma D17.71 Nocturia R35.1
== END 2024-03-26 10:17 | disposition home or self-care (01) ==
PROVIDERS: Visit Provider Urology
DX: N40.1 Benign prostatic hyperplasia with lower urinary tract symptoms (principal); D17.71 Benign lipomatous neoplasm of kidney; R35.1 Nocturia; Z13.9 Encounter for screening, unspecified
CPT/HCPCS: 99214

== ENCOUNTER → 2024-03-26 09:48 | Outpatient (BNVA) | payer OTHER, SELFPAY | PROVIDERS: Visit Provider Urology | DX: N40.1 Benign prostatic hyperplasia with lower urinary tract symptoms (principal); R35.1 Nocturia; D17.71 Benign lipomatous neoplasm of kidney | CPT/HCPCS: 81003; 99212 ==

== ENCOUNTER 2024-05-04 13:52 | Outpatient (AMB) | payer OTHER, SELFPAY ==
[2024-05-04 14:26] VITALS: BP 128/68; PULSE 72; BMI 31.8
--- NOTE | 2024-05-04 14:26 | A.OFFVIS_ITS ---
Vital Signs 05/04/24 14:26 Height 6 ft 2 in Weight 248 lb BMI 31.8 BP 128/68 Blood Pressure Location Lt brachial Position Sitting Pulse 72 Pulse Source Monitor Intake Visit Reasons: F/U and device check Allergies Xzmodvd-RMB-BwC Reductase Inhibitor [QCFYGRS-OKA-RDM REDUCTASE INHIBITOR] Adverse Reaction (Intermediate, Verified 03/26/24 09:56) LEG PAINS Medication List - Last Reconciled 05/04/24 by Emiliano Roblero MD allopurinol 300 mg PO DAILY apixaban (Eliquis) 5 mg PO BID cyanocobalamin (vitamin B-12) 1,000 mcg PO DAILY cyclobenzaprine 10 mg PO TID PRN empagliflozin 12.5 mg PO DAILY ergocalciferol (vitamin D2) (Vitamin D2) 1,250 mcg PO QWEEK gabapentin 300 mg PO DAILY insulin aspart U-100 (Novolog FlexPen U-100 Insulin aspart) 100 units subcut DAILY lidocaine 5% 1 patch topical DAILY metformin 500 mg PO BID metoprolol succinate ER (Toprol XL) 50 mg PO DAILY rosuvastatin 10 mg PO DAILY semaglutide 1 mg subcut QWEEK triamterene-hydrochlorothiazid 37.5-25 mg 0.5 caps PO DAILY HPI Comments Details: Daniel returns for follow-up regarding atrial fibrillation as well as pacemaker. 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 That led to permanent pacemaker implantation. It appears that [facility] Since last seen, no new concerns. No cardiac symptoms whatsoever. Feels good. REPLACED BY [facility] Medical History BRIAN on CPAP Normally functioning cardiac pacemaker present Type 2 diabetes mellitus with unspecified complications Essential hypertension Persistent atrial fibrillation Surgical History History of permanent cardiac pacemaker placement (~2006) Family History Father No problems noted. Mother No problems noted. Social History Alcohol intake: never Patient Tobacco Use Status: Never used Tobacco Review of Systems Const Denies weakness ENT Denies dizziness Card Denies chest pain, Denies chest pain with activity, Denies syncope, Denies rapid heart rate, Denies pedal edema, Denies edema, Denies leg edema, Denies lightheadedness, Denies palpitations, Denies dyspnea, Denies dyspnea on exertion and Denies orthopnea Resp Denies cough, Denies dyspnea and Denies dyspnea on exertion GI Denies hematochezia and Denies change in stool character Musc Denies abnormal gait, Denies muscle cramps, Denies muscle weakness, Denies numbness, Denies radiating pain into limb and Denies tingling Neuro Denies abnormal gait, Denies dizziness, Denies syncope, Denies numbness, Denies tingling and Denies weakness Endo Denies palpitations Physical Exam Vital Signs: Last Vital Signs Pulse 72 05/04/24 14:26 BP 128/68 05/04/24 14:26 BMI result Body Mass Index 31.8 Const General: comfortable and no acute distress Orientation/consciousness: patient oriented x3 HEENT Other: Unremarkable Head: Yes normal to inspection Neck Neck: Yes normal visual inspection Chest Chest palpation & inspection: normal inspection of the chest Resp Auscultation: clear to auscultation bilaterally Cardio Palpation: normal PMI Heart sounds: S1 normal heart sound present, S2 normal heart sound present, no gallops, no murmurs and no rubs GI Palpation (GI): Soft to palpation Back/Spine/Pelvis Other: unremarkable Skin General skin exam: no rashes or lesions noted Neuro General: patient oriented x3 Extrem General: Yes normal to inspection Psych Mental Status: mental status grossly normal Office Procedures Cardiac Device Check Cardiac Device Check Details: Pacemaker interrogated today. Single-chamber device, programmed VVIR. Battery status 3.5 years. Normal lead parameters. Ventricular pacing 99.7%. One episode of 12 beat run-atrial fibrillation RVR and less likely NSVT. Overall, normal device function. [id number] Cardiac Device Check, leadless/single lead pacemaker Procedure code (CPT) selection complete Assessment & Plan Assessment & Plan (1) Persistent atrial fibrillation: Code(s): I48.19 - Other persistent atrial fibrillation Category: Medical Plan: Continue beta-blockers and anticoagulation. (2) Essential hypertension: Code(s): I10 - Essential (primary) hypertension Category: Medical Plan: Stable. (3) Type 2 diabetes mellitus with unspecified complications: Code(s): E11.8 - Type 2 diabetes mellitus with unspecified complications Category: Medical Plan: On insulin, empagliflozin, metformin, semaglutide. Last random glucose 83 mg/dL. (4) BRIAN on CPAP: Code(s): G47.33 - Obstructive sleep apnea (adult) (pediatric); Z99.89 - Dependence on other enabling machines and devices Category: Medical Plan: Continue CPAP. Coding Level of Care Code Est Pt Level 4 (00242) Diagnoses Persistent atrial fibrillation I48.19 Essential hypertension I10 Type 2 diabetes mellitus with unspecified complications E11.8 BRIAN on CPAP G47.33; Z99.89 CPT Codes Cardiac Device Check - Cardiac Device 1: [id number]-[id number] Cardiac Device Check, leadless/single lead pacemaker ([id number])
== END 2024-05-04 14:50 | disposition home or self-care (01) ==
PROVIDERS: Visit Provider Internal Medicine
DX: I48.19 Other persistent atrial fibrillation (principal); I10 Essential (primary) hypertension; E11.8 Type 2 diabetes mellitus with unspecified complications; G47.33 Obstructive sleep apnea (adult) (pediatric); Z99.89 Dependence on other enabling machines and devices
CPT/HCPCS: 93010; 93279; 99214

== ENCOUNTER → 2024-05-04 13:52 | Outpatient (BNVA) | payer OTHER, SELFPAY | PROVIDERS: Visit Provider Internal Medicine | DX: I48.19 Other persistent atrial fibrillation (principal); I10 Essential (primary) hypertension; E11.8 Type 2 diabetes mellitus with unspecified complications; G47.33 Obstructive sleep apnea (adult) (pediatric); Z95.0 Presence of cardiac pacemaker; Z99.89 Dependence on other enabling machines and devices | CPT/HCPCS: 93005; 99212 ==

== ENCOUNTER → 2024-09-04 23:59 | Outpatient (BNV) | payer OTHER, SELFPAY ==
--- NOTE | 2024-09-20 15:03 | A.OFFVIS_ITS ---
Intake Visit Reasons: Remote device check- [employer] Allergies Cqucdih-RVR-FqL Reductase Inhibitor (TPEOJPQ-UOX-MCA REDUCTASE INHIBITOR) Adverse Reaction (Intermediate, Verified 03/26/24 09:56) LEG PAINS PFSH Medical History BRIAN on CPAP Normally functioning cardiac pacemaker present Type 2 diabetes mellitus with unspecified complications Essential hypertension Persistent atrial fibrillation Surgical History History of permanent cardiac pacemaker placement (~2006) Family History Father No problems noted. Mother No problems noted. Social History Alcohol intake: never Patient Tobacco Use Status: Never used Tobacco Office Procedures Cardiac Device Check Cardiac Device Check Details: Date of service- 09/04/2024 ; Battery life 39 months; normal lead parameters; [employer] >99%; no significant arrhythmias. Overall normal device function. [id number] Cardiac Device Interrogation, pacemaker Procedure code (CPT) selection complete Assessment & Plan Assessment & Plan (1) Normally functioning cardiac pacemaker present: Code(s): Z95.0 - Presence of cardiac pacemaker Category: Medical (2) PAF (paroxysmal atrial fibrillation): Code(s): I48.0 - Paroxysmal atrial fibrillation Category: Medical Plan x Coding Level of Care Code Procedure Only Diagnoses Normally functioning cardiac pacemaker present Z95.0 PAF (paroxysmal atrial fibrillation) I48.0 CPT Codes Cardiac Device Check - Cardiac Device 12: [id number] Cardiac Device Interrogation, pacemaker ([id number])
== END ==
PROVIDERS: Visit Provider Internal Medicine
DX: I48.0 Paroxysmal atrial fibrillation (principal); Z95.0 Presence of cardiac pacemaker
CPT/HCPCS: 93294

== ENCOUNTER → 2024-09-04 23:59 | Outpatient (BNV) | payer OTHER, SELFPAY ==
--- NOTE | 2024-10-04 12:23 | A.OFFVIS_ITS ---
Intake Visit Reasons: Remote device check- [employer] Allergies Dumanzp-PVD-QbO Reductase Inhibitor (LOIIRIO-LEW-LVL REDUCTASE INHIBITOR) Adverse Reaction (Intermediate, Verified 09/24/24 10:28) LEG PAINS PFSH Medical History BRIAN on CPAP Normally functioning cardiac pacemaker present Type 2 diabetes mellitus with unspecified complications Essential hypertension Persistent atrial fibrillation Surgical History History of permanent cardiac pacemaker placement (~2006) Family History Father No problems noted. Mother No problems noted. 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 Overall normal device function. [id number] Cardiac Device Interrogation, pacemaker Procedure code (CPT) selection complete Assessment & Plan Assessment & Plan (1) Normally functioning cardiac pacemaker present: Code(s): Z95.0 - Presence of cardiac pacemaker Category: Medical (2) PAF (paroxysmal atrial fibrillation): Code(s): I48.0 - Paroxysmal atrial fibrillation Category: Medical Plan x Coding Level of Care Code Procedure Only Diagnoses Normally functioning cardiac pacemaker present Z95.0 PAF (paroxysmal atrial fibrillation) I48.0 CPT Codes Cardiac Device Check - Cardiac Device 12: [id number] Cardiac Device Interrogation, pacemaker ([id number])
== END ==
PROVIDERS: Visit Provider Internal Medicine
DX: I48.0 Paroxysmal atrial fibrillation (principal); Z95.0 Presence of cardiac pacemaker
CPT/HCPCS: 93294

== ENCOUNTER 2024-09-19 07:28 | Outpatient (REF) | payer OTHER, SELFPAY ==
[2024-09-19 09:17] LABS: PSA,Total (Free>4and<10) 3.66 ng/mL (0.00-4.00)
== END 2024-09-19 07:29 | disposition home or self-care (01) ==
LOC: HO.LAB 07:28
PROVIDERS: Visit Provider Urology
DX: N40.1 Benign prostatic hyperplasia with lower urinary tract symptoms (principal); Z12.5 Encounter for screening for malignant neoplasm of prostate
CPT/HCPCS: 36415; 84153

== ENCOUNTER 2024-09-24 10:07 | Outpatient (REF) | payer OTHER, SELFPAY ==
--- OUTSIDE RECORDS SUMMARY | 2024-09-24 05:49 | XMS_ITS | Continuity of Care Document ---
Author Name [facility] Organization [facility] Care Team Providers Care Network Operations Technician Name Role Phone [facility] Unavailable Unavailable Problems Combined list of problems from Department of Defense and Veterans Affairs facilities. It does not include entries that were removed or entered in error. Problem Status Onset Date Problem Type Date of Resolution Comments Source Cardiac pacemaker in situ Active 007 Condition Dec 02, 2018 Entered By: ANGELINA MCCLELLAN Comment: 01/2007 Dr Himanshu Sabillon [facility], office # [phone] 2022 Entered By: OLIMPIA HALL Comment: Loose pacemaker lead on CXR 2022- can not have MRIMay 2023 Entered By: OLIMPIA HALL Comment: PCM last time interrogated April 2023 with 4 years of batterySep 2018 Entered By: ANGELINA MCCLELLAN Comment: Monitored by WX:DC PPM due to syncope and intermittent AVB 2006 S/P generator change and RV lead revision in 2014Sep 2018 Entered By: ANGELINA MCCLELLAN Comment: [employer] ( Implant Date: 1716-06-07G79:0 0:00Z [id number]:0 0:00Z ) [place] Atrial fibrillation Active Condition [facility] AVB - Atrioventricular block Active Condition [place] 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 [facility] Chronic post-traumatic stress disorder (SNOMED CT 797068498) Active Condition Oct 10, 2017 Entered By: CLARISSA ARMANDO Comment: reviewedVa2017 Entered By: CLARISSA ARMANDO Comment: reviewedMar 30, 2019 Entered By: CLARISSA ARMANDO Comment: reviewedApr 2020 Entered By: CLARISSA ARMANDO Comment: reviewed [place] Diabetes mellitus type 2 Active Condition [facility] Dyspnea Active Condition [facility] Epigastric hernia Active Condition [facility] Exposure to potentially hazardous substance Active Condition Jun 14, 2023 Entered By: ANDREW PORTILLO Comment: Original KEELY Screening performed 04/30/22 [facility] Gout Active Condition [place] History of adenomatous polyp of colon Active Condition Dec 30, 2015 Entered By: ANAI HOLLOWAY MD Comment: colo 08/31 3 large Tubular adenomas removedDec 30, 2015 Entered By: ANAI HOLLOWAY MD Comment: repeat 12/21/2009 - no polypsNov 2017 Entered By: ELVIRA LOCKWOOD Comment: 01/15/18 two polyps removed: Tubulovillous adenoma [place] Hyperlipidemia (SNOMED CT 46313116) Active Condition [place] Hypertension (SNOMED CT 34228296) Active Condition [place] Kidney lesion Active Condition Jan Entered By: DAMIR COLLINS Comment: repeat ct july 2014May 2014 Entered By: DAMIR COLLINS Comment: repeat july 2015Sep 2022 Entered By: OLIMPIA HALL Comment: 08/2022 CT A/P showed 1.9 cm right kidney heterogeneous lesionMay 2023 Entered By: OLIMPIA HALL Comment: repeat CT 10/2022 - [place] [facility] [place] L/T (CURRENT) USE - ANTICOAG Active Condition [place] Long-term current use of anticoagulant Active Condition [facility] Microscopic Hematuria (ICD-9-CM 599.72) Active Condition [facility] Obesity Active Condition [place] 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 Condition [facility] Sleep apnea Active Condition Jul 23, 2011 Entered By: ANGELINA MCCLELLAN Comment: On CPAP [place] Solitary nodule of lung Active Condition Apr 06, 2015 Entered By: DAMIR COLLINS Comment: 03/28/15 9mm RLL, 7mm CHRISTOPHER, repeat June 2015 non contrApr 2015 Entered By: RICHI GONSALEZ Comment: CT, Chest JUL 08: Stable Nodules; repeat MAR 09Dec 2015 Entered By: RICHI GONSALEZ Comment: CT, Thorax DEC 16: Stable Nodules; No Adverse Interim ChangeDec 2016 Entered By: RICHI GONSALEZ Comment: CT, Thorax MAR 10: Benign-Appearin g Stable Nodules;Mar 12, 2018 Entered By: RICHI GONSALEZ Comment: CT, Thorax FEB 18: Nodules Show No Adverse ChangesFeb 2019 Entered By: RICHI GONSALEZ Comment: CT, Thorax MAR 12: Stable Nodules; repeat DEC 2019Dec 2019 Entered By: RICHI GONSALEZ Comment: CT, Thorax MAR 13: Stable Nodules; Bening AppearingJul 2021 Entered By: ANAI KENT Comment: CT Thorax Mar 14. Stable nodules. 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 Diagnosis [facility] Diagnosis: ICD-10-CM Z46.0 Encounter for fit/adjst of spectacles and contact lenses Active Diagnosis [facility] Diagnosis: ICD-10-CM L84 Corns and callosities Active Diagnosis [facility] Diagnosis: ICD-10-CM H26.8 Other specified cataract Active Diagnosis [place] Diagnosis: ICD-10-CM 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, right foot Active Diagnosis [facility] Diagnosis: ICD-10-CM R00.0 Tachycardia, unspecified Active Diagnosis [facility] Diagnosis: ICD-10-CM E66.9 Obesity, unspecified Active Diagnosis [place] Diagnosis: ICD-10-CM I48.91 Unspecified atrial fibrillation Active Diagnosis [place] Diagnosis: ICD-10-CM Z13.6 Encounter for screening for cardiovascular disorders Active Diagnosis [facility] Diagnosis: ICD-10-CM E11.8 Type 2 diabetes mellitus with unspecified complications Active Diagnosis [facility] Diagnosis: ICD-10-CM G47.30 Sleep apnea, unspecified Active Diagnosis [facility] Diagnosis: ICD-10-CM M20.42 Other hammer toe(s) (acquired), left foot Active Diagnosis [facility] Diagnosis: ICD-10-CM R03.1 Nonspecific low blood-pressure reading Active Diagnosis [facility] Medications Combined list of outpatient medications from Department of Defense and Veterans Affairs facilities.Medications provided include 1) outpatient medications from the last 15 months, and 2) patient-reported medications. Medication Details Route Status Patient Instructions Prescription Expires Prescription Number Last Dispense Date Ordering Provider Order Date Order Qty Source ACETAMINOPH EN 500MG TAB TAKE ONE TABLET BY MOUTH THREE TIMES DAILY NEEDED FOR PAIN ORAL 09/02/2024 [id number] HECTOR WANG ICE 2023 100 [facility] ALLOPUR[facility] 300MG TAB TAKE ONE TABLET BY MOUTH ONCE DAILY FOR GOUT ORAL ACTIVE 08/08/2025 [id number] 5 OLIMPIA HAMEED 2024 90 [place] ALLOPURINOL 300MG TAB TAKE ONE TABLET BY MOUTH ONCE DAILY FOR GOUT ORAL DISCONT INUED 05/21/2024 [id number] 4 OLIMPIA HAMEED 2023 90 [facility] AMMONIUM LACTATE 12% LOTION APPLY SMALL AMOUNT TOPICALL Y ONCE DAILY FOR DRY IRRITATE D SKIN APPLY TO LEGS AND FEET DIRECTED TOPICA L 02/28/2024 [id number] 4 OLIMPIA HAMEED 2022 240 [place] APIXABAN 5MG TAB TAKE ONE TABLET BY MOUTH TWICE DAILY ORAL 05/21/2024 [id number] 4 OLIMPIA HAMEED 2023 180 [facility] CARBOXYMETH YLCELLULOSE NA 0.5% SOLN,OPH INSTILL 1 DROP INTO EACH EYE FOUR TIMES A DAY FOR DRY EYE OPHTHA LMIC ACTIVE 04/22/2025 [id number] 5 DAMIAN,LAC EY J 2024 45 [facility] CARBOXYMETH YLCELLULOSE NA 0.5% SOLN,OPH INSTILL 1 DROP INTO EACH EYE FOUR TIMES A DAY FOR DRY EYE OPHTHA LMIC DISCONT INUED 03/13/2024 [id number] DAMIAN,LAC EY J 2022 45 [facility] CARBOXYMETH YLCELLULOSE NA 1% GEL,OPH APPLY 1 DROP INTO EACH EYE AT BEDTIME FOR DRY EYE OPHTHA LMIC ACTIVE 04/22/2025 [id number] 5 DAMIAN,LAC EY J 2024 15 [facility] CHOLECALCIF MANSOOR 25MCG (1,000UNIT) TAB TAKE ONE TABLET BY MOUTH ONCE DAILY FOR VITAMIN D DEFICIEN CY FOR VITAMIN SUPPLEME NTATION ORAL DISCONT INUED 06/30/2024 [id number] 5 OLIMPIA HAMEED 2024 100 [place] CHOLECALCIF MANSOOR 25MCG (1,000UNIT) TAB TAKE ONE TABLET BY MOUTH ONCE DAILY FOR VITAMIN D DEFICIEN CY FOR VITAMIN SUPPLEME NTATION ORAL 08/23/2024 [id number] 5 AMPARO MCKENZIE 2024 100 [place] CHOLECALCIF MANSOOR 25MCG (1,000UNIT) TAB TAKE ONE TABLET BY MOUTH ONCE DAILY FOR VITAMIN SUPPLEME NTATION ORAL 12/17/2023 [id number] 4 OLIMPIA HAMEED 2022 90 [place] CYANOCOBALA MIN 1000MCG TAB TAKE ONE TABLET BY MOUTH ONCE DAILY FOR PREVENTI ON OF VITAMIN B12 DEFICIEN CY ORAL DISCONT INUED 06/30/2024 [id number] 5 OLIMPIA HAMEED 2024 100 [place] CYANOCOBALA MIN 1000MCG TAB TAKE ONE TABLET BY MOUTH EVERY DAY FOR VITAMIN SUPPLEME NTATION ORAL DISCONT INUED BY PROVIDE R 06/10/2024 [id number] 4 OLIMPIA HAMEED 2023 90 [place] CYANOCOBALA MIN 1000MCG TAB TAKE ONE TABLET BY MOUTH ONCE DAILY FOR PREVENTI ON OF VITAMIN B12 DEFICIEN CY ORAL 08/23/2024 [id number] 5 AMPARO MCKENZIE JOSE 2024 100 [place] DICLOFENAC NA 1% GEL,TOP APPLY 4 GRAMS TOPICALL Y FOUR TIMES A DAY FOR JOINT PAIN - USE DOSING CARD PROVIDED IN BOX TOPICA L 04/01/2024 [id number] OLIMPIA HAMEED 2023 100 [place] EMPAGLIFLOZ IN 25MG TAB TAKE ONE TABLET BY MOUTH ONCE DAILY FOR DIABETES ORAL 02/14/2024 [id number] 4 WANG,AL ICE 2022 90 [facility] GABAPENTIN 300MG CAP TAKE TWO CAPSULES BY MOUTH THREE TIMES A DAY FOR NERVE PAIN ORAL 05/29/2024 [id number] 5 WANG,AL ICE 2023 540 [facility] HYDROCHLORO THIAZIDE 25MG/TRIAMT ERENE 37.5MG TAB TAKE 1 TABLET BY MOUTH EVERY MORNING FOR HIGH BLOOD PRESSURE (NOTE DOSE) ORAL ACTIVE 05/26/2025 [id number] 5 AMPARO MCKENZIE S JOSE 2024 90 [place] HYDROCHLORO THIAZIDE 25MG/TRIAMT ERENE 37.5MG TAB TAKE 1 TABLET BY MOUTH EVERY MORNING FOR HIGH BLOOD PRESSURE (NOTE DOSE) ORAL DISCONT INUED 07/31/2024 [id number] OLIMPIA HAMEED 2023 90 [place] HYDROCHLORO THIAZIDE 25MG/TRIAMT ERENE 37.5MG TAB TAKE ONE-HALF TABLET BY MOUTH EVERY MORNING FOR HIGH BLOOD PRESSURE ORAL DISCONT INUED (EDIT) 04/08/2024 [id number] 4 OLIMPIA HAMEED 2023 45 [place] INSULIN,ASP ART,HUMAN (EQV-NOVOLO G) 100 UNIT/ML,FLE XPEN,3ML INJECT 6 UNITS SUBCUTAN EOUSLY ONCE DAILY FOR DIABETES INJECT WITH DINNER MEAL SUBCUT ANEOUS ACTIVE 07/31/2025 [id number] 5 Bolivar GAMBINO 2024 5 [place] INSULIN,ASP ART,HUMAN (EQV-NOVOLO G) 100 UNIT/ML,FLE XPEN,3ML INJECT 9 UNITS SUBCUTAN EOUSLY EVERY EVENING BEFORE SUPPER FOR DIABETES (DISCARD EACH PEN 28 DAYS AFTER FIRST USE) SUBCUT ANEOUS 05/29/2024 [id number] 4 WANG,AL ICE 2023 5 [facility] INSULIN,GLA RGINE,HUMAN 100 UNIT/ML INJ,SOLOSTA R,3ML INJECT 10 UNITS SUBCUTAN EOUSLY ONCE DAILY FOR DIABETES SUBCUT ANEOUS ACTIVE 07/31/2025 [id number] 5 Bolivar GAMBINO A 2024 5 [place] INSULIN,GLA RGINE,HUMAN 100 UNIT/ML INJ,SOLOSTA R,3ML INJECT 18 UNITS SUBCUTAN EOUSLY ONCE DAILY SUBCUT ANEOUS DISCONT INUED BY PROVIDE R 09/02/2024 [id number] 5 WANG,AL ICE 2024 10 [facility] INSULIN,GLA RGINE-YFGN 100UNIT/ML INJ PEN,3ML INJECT 18 UNITS SUBCUTAN EOUSLY ONCE DAILY SUBCUT ANEOUS DISCONT INUED (EDIT) 09/02/2024 [id number] 5 WANG,AL ICE 2023 10 [facility] KETOROLAC TROMETHAMIN E 0.5% SOLN,OPH INSTILL 1 DROP INTO THE AFFECTED EYE(S) THREE TIMES A DAY STARTING 2 DAYS PRIOR TO SURGERY. TAPER DIRECTED . OPHTHA LMIC ACTIVE 12/25/2024 [id number] 4 MARILU ESPINOZA 2023 5 [place] KETOROLAC TROMETHAMIN E 0.5% SOLN,OPH INSTILL 1 DROP INTO THE AFFECTED EYE(S) THREE TIMES A DAY STARTING 2 DAYS PRIOR TO SURGERY. TAPER DIRECTED . OPHA LMIC DISCONT INUED 12/20/2024 [id number] MARILU ESPINOZA 2023 5 [place] LIDOCAINE 5% PATCH APPLY 1 PATCH TOPICALL Y ONCE DAILY DIRECTED BY PROVIDER (LEAVE PATCH ON FOR 12 HOURS, THEN REMOVE PATCH) TOPICA L 10/28/2023 [id number] 4 OLIMPIA HAMEED M 2023 30 [place] MAGNESIUM OXIDE 420MG TAB TAKE ONE TABLET BY MOUTH EVERY MORNING ORAL 12/17/2023 [id number] 4 OLIMPIA HAMEED 2022 90 [place] METFORMIN HCL 500MG 24HR TAB,SA TAKE FOUR TABLETS BY MOUTH ONCE DAILY ORAL 05/02/2024 [id number] 4 OLIMPIA HAMEED 2023 360 [place] METOPROLOL SUCCINATE 50MG TAB,SA TAKE ONE TABLET BY MOUTH ONCE DAILY AFIB ORAL 05/21/2024 [id number] 5 OLIMPIA HAMEED 2023 90 [facility] POTASSIUM CHLORIDE 20MEQ TAB,SA (DISPERSIBL E) TAKE ONE TABLET BY MOUTH ONCE DAILY FOR LOW POTASSIU M ORAL 10/28/2023 [id number] OLIMPIA HAMEED 2023 5 [place] ROSUVASTATI N CA 40MG TAB TAKE ONE TABLET BY MOUTH ONCE DAILY FOR CHOLESTE ROL ORAL ACTIVE 05/26/2025 [id number] 5 AMPARO MCKENZIE 2024 90 [place] ROSUVASTATI N CA 40MG TAB TAKE ONE TABLET BY MOUTH ONCE DAILY FOR CHOLESTE ROL ORAL DISCONT INUED 05/29/2024 [id number] 5 WANG,AL ICE 2023 90 [facility] SEMAGLUTIDE 2MG/0.75ML INJ,SOLN,PE N,3ML INJECT 2MG SUBCUTAN EOUSLY ONCE A WEEK SUBCUT ANEOUS ACTIVE 04/02/2025 [id number] 5 Bolivar GAMBINO 2024 3 [place] SEMAGLUTIDE 2MG/0.75ML INJ,SOLN,PE N,3ML INJECT 2MG SUBCUTAN EOUSLY ONCE A WEEK SUBCUT ANEOUS DISCONT INUED 09/02/2024 [id number] 4 WANG,AL ICE 2023 1 [facility] SEMAGLUTIDE 2MG/0.75ML INJ,SOLN,PE N,3ML INJECT 2MG SUBCUTAN EOUSLY ONCE A WEEK SUBCUT ANEOUS DISCONT INUED 05/29/2024 [id number] WANG,AL ICE 2023 1 [facility] TAMSULOSIN HCL 0.4MG CAP TAKE ONE CAPSULE BY MOUTH EVERY EVENING AT BEDTIME FOR ENLARGED PROSTATE ORAL ACTIVE 08/08/2025 [id number] 5 OLIMPIA HAMEED 2024 90 [place] TAMSULOSIN HCL 0.4MG CAP TAKE ONE CAPSULE BY MOUTH EVERY EVENING AT BEDTIME FOR ENLARGED PROSTATE ORAL DISCONT INUED 04/24/2024 [id number] WILLOW COSTELLO 2023 90 [facility] Allergies, Adverse Reactions, Alerts Combined list of allergies from Department of Defense and Veterans Affairs facilities. It does not include entries that were removed or entered in error. Substance Category Reaction Severity Reaction type Status Date Reported Comments Source ATORVASTATIN Propensity to adverse reactions to drug (finding) Muscle pain MODERATE active 6 [facility] CRESTOR Propensity to adverse reactions to drug (finding) Eruption active 7 [facility] LIPITOR Propensity to adverse reactions to drug (finding) Eruption active 7 [facility] PRAVASTATIN Propensity to adverse reactions to drug (finding) Eruption active 7 [facility] ROSUVASTATIN Propensity to adverse reactions to drug (finding) active 7 [facility] SIMVASTATIN Propensity to adverse reactions to drug (finding) Muscle pain active 3 [facility] SIMVASTATIN Propensity to adverse reactions to drug (finding) active 4 [facility] ZOCOR Propensity to adverse reactions to drug (finding) Eruption active 7 [facility] Immunizations Combined list of available immunizations from the Department of [facility] and Veterans Affairs facilities. Immunization Series Date Given Administered By Site Reaction Lot Number CVX Code Drug Calculator Operator Status Comments Source INFLUENZA, HIGH-DOSE, TRIVALENT, PF 2023 RONN BHATIA LEFT DELTO ID [id number] 135 complet ed [facility] IELD INFLUENZA, HIGH-DOSE, QUADRIVALENT 2022 LELAND SANCHEZ LEFT DELTO ID [id number] 197 complet ed Completed Series, [facility] AT [facility] PNEUMOCOCCAL CONJUGATE PCV20, POLYSACCHARID E [id number] CONJUGATE, ADJUVANT, PF 2022 LIBIA VALENTIN LEFT DELTO ID [id number] 216 complet ed [facility] AT [facility] INFLUENZA VACCINE, QUADRIVALENT, ADJUVANTED 2021 205 complet ed [facility] COVID-19 (MODERNA), MRNA, LNP-S, PF, 100 MCG OR 50 MCG DOSE 3 2021 207 complet ed MOD; [id number]; 2 [place] INFLUENZA VACCINE, QUADRIVALENT, ADJUVANTED 2020 205 complet ed [place] ZOSTER RECOMBINANT 2 2020 187 complet ed [place] COVID-19 (MODERNA), MRNA, LNP-S, PF, 100 MCG/0.5 ML DOSE 2 2020 207 complet ed MOD; [id number]; 1 [place] COVID-19 (MODERNA), MRNA, LNP-S, PF, 100 MCG/0.5 ML DOSE 1 2020 207 complet ed MOD; [id number]; 1 [place] INFLUENZA, INJECTABLE, QUADRIVALENT, PRESERVATIVE FREE 2019 150 complet ed [place] INFLUENZA, INJECTABLE, QUADRIVALENT, PRESERVATIVE FREE 2018 150 complet ed Site: Right Deltoid [place] FLU,3 YRS (HISTORICAL) 2018 88 complet ed [place] [facility] ZOSTER RECOMBINANT 1 2018 187 complet ed [place] INFLUENZA, INJECTABLE, QUADRIVALENT 2017 158 complet ed Site: Left Deltoid [facility] INFLUENZA, SEASONAL, INJECTABLE 2016 141 complet ed Site: Left Deltoid [place] TDAP 2016 115 complet ed Site: Left Deltoid [place] FLU,3 YRS (HISTORICAL) 2015 88 complet ed Site: Left Deltoid [place] FLU,3 YRS (HISTORICAL) 2014 88 complet ed [facility] FLU,3 YRS (HISTORICAL) 2014 88 complet ed Site: Left Deltoid [place] PNEUMOCOCCAL CONJUGATE PCV 13 2014 133 complet ed [place] FLU,3 YRS (HISTORICAL) 2013 88 complet ed Site: Left Deltoid [place] FLU,3 YRS (HISTORICAL) 2012 88 complet ed Site: Right Deltoid [place] PNEUMOCOCCAL, UNSPECIFIED FORMULATION 2012 109 complet ed Site: Left Deltoid [place] FLU,3 YRS (HISTORICAL) 2011 88 complet ed Site: Left Deltoid [place] TD(ADULT) UNSPECIFIED FORMULATION 2010 139 complet ed Site: Left Deltoid [place] FLU,3 YRS (HISTORICAL) 2010 88 complet ed Site: Left Deltoid [facility] FLU,3 YRS (HISTORICAL) 2009 88 complet ed Site: Left Deltoid [place] ZOSTER LIVE 2009 ADDISON TO 121 complet ed [place] NOVEL INFLUENZA-H1N 1-09, ALL FORMULATIONS 2008 128 complet ed [employer] [facility] FLU,3 YRS (HISTORICAL) 2008 88 complet ed Site: Left Deltoid [place] FLU,3 YRS (HISTORICAL) 2007 88 complet ed Pt. was given flu vaccine by his Civilian Provider! ! [facility] PNEUMOCOCCAL, UNSPECIFIED FORMULATION 2006 109 complet ed [facility] Results Combined list of recent chemistry, hematology and other laboratory results from Department of Defense and Veterans Affairs, ranging from 15 months to all on record, depending upon the facility. Order Name Results Value Reference Range Date Interpretation Specimen Comments Source BASIC METABOLIC PANEL (fasting) UREA NITROGEN [MASS/VOLUM E] IN SERUM OR PLASMA 10 mg/dL 8 - 26 09/16 Specimen Type: SERUM No comment entered. Ordering Provider: DELMA GAMBINO Report Released Date/Time: July 30, 2024 01:43 PM Reporting [facility] [address] [facility] [address] Performing Lab[facility] [place] [facility] [address] [facility] [address] [facility] BASIC METABOLIC PANEL (fasting) GLUCOSE [MASS/VOLUM E] IN SERUM OR PLASMA 113 mg/dL 65 - 100 09/16 H Specimen Type: SERUM No comment entered. Ordering Provider: DELMA GAMBINO Report Released Date/Time: July 30, 2024 01:43 PM Reporting Lab: [facility] [place] [facility] [address] [facility] [address] Performing Lab: [facility] [place] [facility] [address] [facility] [address] [facility] BASIC METABOLIC PANEL (fasting) SODIUM [MOLES/VOLU ME] IN SERUM OR PLASMA 141 mmol/L 136 - 145 09/16 Specimen Type: SERUM No comment entered. Ordering Provider: DELMA GAMBINO Report Released Date/Time: July 30, 2024 01:43 PM Reporting Lab: [facility] [place] [facility] [address] [facility] [address] Performing Lab: [facility] [place] [facility] [address] [facility] [address] [facility] BASIC METABOLIC PANEL (fasting) POTASSIUM [MOLES/VOLU ME] IN SERUM OR PLASMA 3.5 mmol/L 3.5 - 5.1 09/16 Specimen Type: SERUM No comment entered. Ordering Provider: DELMA GAMBINO Report Released Date/Time: July 30, 2024 01:43 PM Reporting Lab: [facility] [place] [facility] [address] [facility] [address] Performing Lab: [facility] [place] [address] [address] [facility] BASIC METABOLIC PANEL (fasting) CHLORIDE [MOLES/VOLU ME] IN SERUM OR PLASMA 106 mmol/L 98 - 107 09/16 Specimen Type: SERUM No comment entered. Ordering Provider: DELMA GAMBINO Report Released Date/Time: July 30, 2024 01:43 PM Reporting Lab: [facility] [place] [facility] [address] [facility] [address] Performing Lab: [facility] [place] [address] [address] [facility] BASIC METABOLIC PANEL (fasting) CARBON DIOXIDE, TOTAL [MOLES/VOLU ME] IN SERUM OR PLASMA 28 meq/L 23 - 31 09/16 Specimen Type: SERUM No comment entered. Ordering Provider: DELMA GAMBINO Report Released Date/Time: July 30, 2024 01:43 PM Reporting Lab: [facility] [place] [facility] [address] [facility] [address] Performing Lab: [facility] [address] [facility] [address] [facility] BASIC METABOLIC PANEL (fasting) CALCIUM [MASS/VOLUM E] IN SERUM OR PLASMA 10.2 mg/dL 8.8 - 10 09/16 H Specimen Type: SERUM No comment entered. Ordering Provider: DELMA GAMBINO Report Released Date/Time: July 30, 2024 01:43 PM Reporting Lab: [facility] [address] [address] Performing Lab: [facility] [address] [facility] BASIC METABOLIC PANEL (fasting) CREATININE [MASS/VOLUM E] IN SERUM OR PLASMA 0.83 mg/dL 0.72 - 1.25 09/16 Specimen Type: SERUM No comment entered. Ordering Provider: DELMA GAMBINO Report Released Date/Time: July 30, 2024 01:43 PM Reporting [facility]: [facility] [address] [address] Performing Lab: [facility] [address] [address] [facility] BASIC METABOLIC PANEL (fasting) GLOMERULAR FILTRATION RATE/1.73 SQ M.PREDICTED [VOLUME RATE/AREA] IN SERUM, PLASMA OR BLOOD BY CREATININE- BASED FORMULA (CKD-EPI 2020) 89 mL/min 60 09/16 Specimen Type: SERUM No comment entered. Ordering Provider: DELMA GAMBINO Report Released Date/Time: July 30, 2024 01:43 PM Reporting Lab: [facility] [place] [address] [address] Performing Lab: [facility] [address] [address] [facility] CBC LEUKOCYTES [#/VOLUME] IN BLOOD BY AUTOMATED COUNT 5.22 10*3/u L 4.50 - 11.00 09/16 Specimen Type: BLOOD No comment entered. Ordering Provider: DELMA GAMBINO Report Released Date/Time: July 30, 2024 01:43 PM Reporting Lab: [facility] [place] [facility] [address] [facility] [address] Performing Lab: [facility] [place] [facility] [address] [facility] [address] [facility] [place] [facility] CBC ERYTHROCYTE S [#/VOLUME] IN BLOOD BY AUTOMATED COUNT 4.78 10*6/u L 4.23 - 5.66 09/16 Specimen Type: BLOOD No comment entered. Ordering Provider: DELMA GAMBINO Report Released Date/Time: July 30, 2024 01:43 PM Reporting Lab: [facility] [place] [address] [address] Performing Lab: [facility] [place] [address] [address] [facility] [facility] CBC HEMOGLOBIN [MASS/VOLUM E] IN BLOOD 14.2 g/dL 12.8 - 17 09/16 Specimen Type: BLOOD No comment entered. Ordering Provider: DELMA GAMBINO Report Released Date/Time: July 30, 2024 01:43 PM Reporting Lab: [facility] [place] [address] [address] Performing Lab: [facility] [place] [address] [address] [facility] [place] [facility] CBC HEMATOCRIT [VOLUME FRACTION] OF BLOOD BY AUTOMATED COUNT 42.8 39.2 - 50.4 09/16 Specimen Type: BLOOD No comment entered. Ordering Provider: DELMA GAMBINO Report Released Date/Time: July 30, 2024 01:43 PM Reporting Lab: [facility] [place] [address] [address] Performing Lab: [facility] [place] [address] [address] [facility] [place] [facility] CBC MCV [ENTITIC VOLUME] BY AUTOMATED COUNT 89.5 fL 82 - 99 09/16 Specimen Type: BLOOD No comment entered. Ordering Provider: DELMA GAMBINO Report Released Date/Time: July 30, 2024 01:43 PM Reporting Lab: [facility] [place] [facility] [address] [facility] [address] Performing Lab: [facility] [place] [facility] [address] [facility] [address] [facility] [place] [facility] CBC MCHC [MASS/VOLUM E] BY AUTOMATED COUNT 33.2 g/dL 30.8 - 35.1 09/16 Specimen Type: BLOOD No comment entered. Ordering Provider: DELMA GAMBINO Report Released Date/Time: July 30, 2024 01:43 PM Reporting Lab: [facility] [place] [address] [address] Performing Lab: [facility] [place] [address] [address] [facility] [place] [facility] CBC PLATELETS [#/VOLUME] IN BLOOD BY AUTOMATED COUNT 223 10*3/u L 140 - 360 09/16 Specimen Type: BLOOD No comment entered. Ordering Provider: DELMA GAMBINO Report Released Date/Time: July 30, 2024 01:43 PM Reporting Lab: [facility] [place] [address] [address] Performing Lab: [facility] [place] [facility] [address] [facility] [address] [facility] [place] [facility] CBC PLATELET MEAN VOLUME [ENTITIC VOLUME] IN BLOOD BY AUTOMATED COUNT 10.1 fL 9.2 - 12.4 09/16 Specimen Type: BLOOD No comment entered. Ordering Provider: DELMA GAMBINO Report Released Date/Time: July 30, 2024 01:43 PM Reporting Lab: [facility] [place] [address] [address] Performing Lab: [facility] [place] [facility] [address] [facility] [address] [facility] CBC ERYTHROCYTE DISTRIBUTIO N WIDTH [RATIO] BY AUTOMATED COUNT 14.3 12.0 - 16.0 09/16 Specimen Type: BLOOD No comment entered. Ordering Provider: DELMA GAMBINO Report Released Date/Time: July 30, 2024 01:43 PM Reporting Lab: [facility] [address] [facility] [address] Performing Lab: [facility] [address] [address] [facility] CBC MCH [ENTITIC MASS] BY AUTOMATED COUNT 29.7 pg 26.2 - 32.6 09/16 Specimen Type: BLOOD No comment entered. Ordering Provider: DELMA GAMBINO Report Released Date/Time: July 30, 2024 01:43 PM Reporting Lab: [facility] [address] Performing Lab: [facility] TRN [facility] [address] [facility] HEMOGLOBI N A1C PANEL HEMOGLOBIN A1C/HEMOGLO BIN.TOTAL IN BLOOD BY IF[facility] PROTOCOL 7.3 4.0 - 5.6 09/16 H Specimen Type: BLOOD Comment: Values obtained from A1C measurement s can vary. For atypical A1C assays, a reported value of 7.0 could actually be between 6.72 and 7.28 if measured by a reference method. A reported value of 9.0 could actually be between 8.73 and 9.27. Ref: http://www. ngsp.org/[place] Pdata.asp Ordering Provider: DELMA GAMBINO Report Released Date/Time: July 30, 2024 01:43 PM Reporting Lab: [facility] [address] Performing Lab: [facility] [address] [address] [facility] LIPID PANEL FASTING CHOLESTEROL [MASS/VOLUM E] IN SERUM OR PLASMA 94 mg/dL 09/16 Specimen Type: SERUM No comment entered. Ordering Provider: DELMA GAMBINO Report Released Date/Time: July 30, 2024 01:43 PM Reporting Lab: [facility] [place] [facility] [address] [facility] [address] Performing Lab: [facility] [address] [facility] [address] [facility] [place] [facility] LIPID PANEL FASTING TRIGLYCERID E [MASS/VOLUM E] IN SERUM OR PLASMA 108 mg/dL 0 - 150 09/16 Specimen Type: SERUM No comment entered. Ordering Provider: DELMA GAMBINO Report Released Date/Time: July 30, 2024 01:43 PM Reporting Lab: [facility] TRN [place] [address] Performing Lab: [facility] [address] [facility] LIPID PANEL FASTING CHOLESTEROL IN LDL [MASS/VOLUM E] IN SERUM OR PLASMA BY CALCULATION 37 mg/dL 0 - 129 09/16 Specimen Type: SERUM No comment entered. Ordering Provider: DELMA GAMBINO Report Released Date/Time: July 30, 2024 01:43 PM Reporting Lab: [facility] [address] Performing Lab: [facility] [address] [facility]N [facility] LIPID PANEL FASTING CHOLESTEROL .TOTAL/CHOL ESTEROL IN HDL [MASS RATIO] IN SERUM OR PLASMA 2.7 09/16 Specimen Type: SERUM No comment entered. Ordering Provider: DELMA GAMBINO Report Released Date/Time: July 30, 2024 01:43 PM Reporting Lab: [facility] [place] [address] Performing Lab: [facility] [place] [address] [facility] [place] [facility] LIPID PANEL FASTING CHOLESTEROL IN HDL [MASS/VOLUM E] IN SERUM OR PLASMA 35 mg/dL 40 09/16 L Specimen Type: SERUM No comment entered. Ordering Provider: DELMA GAMBINO Report Released Date/Time: July 30, 2024 01:43 PM Reporting Lab: [facility] [place] [facility] [address] [facility] [address] Performing Lab: [facility] [place] [facility] [address] [facility] [address] [facility] [place] [facility] MICROALBU MIN CREATININ E RATIO PANEL MICROALBUMI N/CREATININ E [MASS RATIO] IN URINE 104.2 mg/g 0 - 29.9 09/16 H Specimen Type: URINE No comment entered. Ordering Provider: DELMA GAMBINO Report Released Date/Time: July 30, 2024 01:43 PM Reporting Lab: [facility] [place] [facility] [address] [facility] [address] Performing Lab: [facility] [place] [facility] [address] [facility] [address] [facility] [place] [facility] MICROALBU MIN CREATININ E RATIO PANEL MICROALBUMI N [MASS/VOLUM E] IN URINE BY DETECTION LIMIT <= 1.0 MG/L 9.4 mg/dL 09/16 Specimen Type: URINE No comment entered. Ordering Provider: DELMA GAMBINO Report Released Date/Time: July 30, 2024 01:43 PM Reporting Lab: [facility] [place] [facility] [address] [facility] [address] Performing Lab: [facility] [place] [facility] [address] [facility] [address] [facility] [place] [facility] MICROALBU MIN CREATININ E RATIO PANEL CREATININE [MASS/VOLUM E] IN URINE 90.21 mg/dL 63 - 166 09/16 Specimen Type: URINE No comment entered. Ordering Provider: DELMA GAMBINO Report Released Date/Time: July 30, 2024 01:43 PM Reporting Lab: [facility] [place] [facility] [address] [facility] [address] Performing Lab: [facility] [place] [facility] [address] [facility] [address] [facility] [place] [facility] MAGNESIUM MAGNESIUM [MASS/VOLUM E] IN SERUM OR PLASMA 1.8 mg/dL 1.6 - 2.6 11/25 Specimen Type: SERUM No comment entered. Ordering Provider: VIRAJ DAILY Report Released Date/Time: Jun 16, 2023 02:37 PM Reporting Lab: [facility] [place] [facility] [address] [facility] [address] Performing Lab: [facility]N [place] [address] [address] [place] MICROALBU MIN CREATININ E RATIO PANEL MICROALBUMI N/CREATININ E [MASS RATIO] IN URINE 23.4 mg/g 0 - 29.9 11/25 Specimen Type: URINE No comment entered. Ordering Provider: VIRAJ DAILY Report Released Date/Time: Jun 16, 2023 02:37 PM Reporting Lab: [facility]N [place] [facility] [address] [facility] [address] Performing Lab: [facility] [place] [facility] [address] [facility] [address] [place] MICROALBU MIN CREATININ E RATIO PANEL MICROALBUMI N [MASS/VOLUM E] IN URINE 1.6 mg/dL 11/25 Specimen Type: URINE No comment entered. Ordering Provider: VIRAJ DAILY Report Released Date/Time: Jun 16, 2023 02:37 PM Reporting Lab: [facility] [place] [facility] [address] [facility] [address] Performing Lab: [facility] [place] [facility] [address] [facility] [address] [place] MICROALBU MIN CREATININ E RATIO PANEL CREATININE [MASS/VOLUM E] IN URINE 68.45 mg/dL 11/25 Specimen Type: URINE No comment entered. Ordering Provider: VIRAJ DAILY Report Released Date/Time: Jun 16, 2023 02:37 PM Reporting Lab: [address] [address] Performing Lab: [address] [address] [place] URIC ACID URATE [MASS/VOLUM E] IN SERUM OR PLASMA 2.8 mg/dL 3.5 - 7.2 11/25 L Specimen Type: SERUM No comment entered. Ordering Provider: VIRAJ DAILY Report Released Date/Time: Jun 16, 2023 02:37 PM Reporting Lab: [address] [address] Performing Lab: [address] [address] [place] VITAMIN B12 COBALAMIN (VITAMIN B12) [MASS/VOLUM E] IN SERUM OR PLASMA 1367 pg/mL 200 - 900 11/25 H Specimen Type: SERUM No comment entered. Ordering Provider: VIRAJ DAILY Report Released Date/Time: Jun 16, 2023 02:37 PM Reporting Lab: [address] [address] Performing Lab: [address] [address] [place] VITAMIN D (25-OH) 25-HYDROXYV ITAMIN D3 [MASS/VOLUM E] IN SERUM OR PLASMA 37 ng/mL 20 - 50 11/25 Specimen Type: SERUM No comment entered. Ordering Provider: VIRAJ DAILY Report Released Date/Time: Jun 16, 2023 02:37 PM Reporting Lab: [address] [address] Performing Lab: [address] [address] [place] Vital Signs Combined list of inpatient and outpatient Vital Signs from Department of Defense and Veterans Affairs, ranging from 12 months to all on record, depending upon the facility. Vital Sign Value Date Comments Source SYSTOLIC BLOOD PRESSURE 130 05/26/19 25 09:46:18 [facility] [place] [facility] DIASTOLIC BLOOD PRESSURE 77 025 09:46:18 [facility] [place] [facility] PULSE OXIMETRY 97 05/25/2024 09:46:18 [facility] [place] [facility] WEIGHT 252 05/25/2024 09:46:18 [facility] [place] [facility] BMI 32 kg/m2 05/25/2024 09:46:18 [facility] [place] [facility] TEMPERATURE 95.6 05/25/2024 09:46:18 [facility] [place] [facility] PULSE 86 05/25/2024 09:46:18 [facility] [place] [facility] SYSTOLIC BLOOD PRESSURE 130 12/17/19 09:20:56 [facility] DIASTOLIC BLOOD PRESSURE 77 024 09:20:56 [facility] PULSE OXIMETRY 98 12/17/2023 09:20:56 [facility] WEIGHT 259 12/17/2023 09:20:56 [facility] BMI 33 kg/m2 12/17/2023 09:20:56 [facility] TEMPERATURE 97 12/17/2023 09:20:56 [facility] PULSE 90 12/17/2023 09:20:56 [facility] RESPIRATION 18 12/17/2023 09:20:56 [facility] Encounters Combined list of: 1) Encounters from Department of Veterans Affairs facilities going backup to the last 18 months, not all [place] inpatient encounters are included; 2) Encounters from the Department of [facility] facilities going backup to 280 months. Location Location Details Encounter Type Encounter Number Reason For Visit Attending Provider ADM Date DC Date Status [facility] [place] [facility] [place] [id number] Diagnos is: ICD-10- CM E66.9 Obesity , unspeci LORIE Hayes 04/01 [facility] [place] [facility] En[facility] [id number] 04/01 [facility] PRO PHONE CALL 5-10 MIN [id number] Diagnos is: ICD-10- CM R03.1 Nonspec ific low blood-p ressure reading TRYBA,TAMM Y 04/01 [facility] En[facility] [id number] 04/02 [facility] [place] PRO PHONE CALL 5-10 MIN [id number] Diagnos is: ICD-10- CM R03.1 Nonspec ific low blood-p ressure reading TRYBA,TAMM Y 04/03 [facility] PRO PHONE CALL 5-10 MIN [id number] Diagnos is: ICD-10- CM R03.1 Nonspec ific low blood-p ressure reading TRYBA,TAMM Y 04/09 [facility] [place] En[facility] [id number] 04/12 [facility] [place] PRO PHONE CALL 5-10 MIN [id number] Diagnos is: ICD-10- CM I10 Essenti al (primar y) hyperte nsion ERIKA,SERJIO ECCA R 04/23 [facility] En[facility] [id number] 04/24 [facility] [place] Encounter [id number] Diagnos is: ICD-10- CM E11.9 Type 2 diabete s mellitu s without complic ations SERJIO JAMES R 04/24 [facility] HC PRO PHONE CALL 11-20 MIN [id number] Diagnos is: ICD-10- CM I10 Essenti al (primar y) hyperte nsion DEB COSBY AN M 04/24 [facility] HC PRO PHONE CALL 5-10 MIN [id number] Diagnos is: ICD-10- CM I10 Essenti al (primar y) hyperte nsion JOSELYN BEARDIS 05/01 [facility] Outpatient Encounter [id number] 05/09 [facility] Outpatient Encounter [id number] Diagnos is: ICD-10- CM E11.9 Type 2 diabete s mellitu s without complic ations TRYBA,TAMM Y 05/20 [facility] HC PRO PHONE CALL 5-10 MIN [id number] Diagnos is: ICD-10- CM E11.9 Type 2 diabete s mellitu s without complic ations TRYBA,TAMM Y 05/20 [facility] HC PRO PHONE CALL 11-20 MIN [id number] Diagnos is: ICD-10- CM E11.9 Type 2 diabete s mellitu s without complic ations TRYBA,TAMM Y 05/21 [facility] OFFICE O/P EST LOW 20 MIN [id number] Diagnos is: ICD-10- CM M20.42 Other hammer toe(s) (acquir ed), left foot TANIA RUSSELL D 05/21 [facility] En[facility] [id number] [facility] [place] 40 [place] [id number] Diagnos is: ICD-10- CM E11.9 Type 2 diabete s mellitu s without complic ations CAROLINE WANG [facility] En[facility] [id number] [facility] Encounter [id number] 05/27 [facility] Encounter [id number] 05/28 [facility] OFFICE O/P [place] HI 40 MIN [id number] Diagnos is: ICD-10- CM E11.9 Type 2 diabete s mellitu s without complic ations CAROLINE WANG 05/28 [facility] OFF/OP EST MAY X REQ PHY/QHP [id number] Diagnos is: ICD-10- CM E11.9 Type 2 diabete s mellitu s without complic ations ALFREDO SILVA 05/28 [facility] En[facility] [id number] 06/09 [facility] [place] [place] OFFICE O/P EST MOD 30 MIN [id number] Diagnos is: ICD-10- CM E66.9 Obesity , unspeci fied ОЛЕГ HOBBSSTEVEN,CHIQUITA STUBBS M 06/09 [place] [facility] COLLJ & INTERPJ DATA EA 30 D [id number] Diagnos is: ICD-10- CM G47.30 Sleep apnea, unspeci fied EILEENSTEFAN A 06/10 [facility] [place] Outpatient Encounter [id number] Diagnos is: ICD-10- CM E11.9 Type 2 diabete s mellitu s without complic ations TRYBA,TAMM Y 06/18 [facility] [place] [facility] Outpatient Encounter [id number] 06/19 [facility] [place] HC PRO PHONE CALL 5-10 MIN [id number] Diagnos is: ICD-10- CM I10 Essenti al (primar y) hyperte nsion FARTUN LISSY A 07/07 [facility] [place] HC PRO PHONE CALL 21-30 MIN [id number] Diagnos is: ICD-10- CM I10 Essenti al (primar y) hyperte nsion JOSELYN BEARDIS 07/09 [facility] HC PRO PHONE CALL 5-10 MIN [id number] Diagnos is: ICD-10- CM I10 Essenti al (primar y) hyperte nsion JOSELYN BEARD EBONI 07/10 [facility] Outpatient Encounter [id number] 07/11 [facility] HC PRO PHONE CALL 5-10 MIN [id number] Diagnos is: ICD-10- CM I10 Essenti al (primar y) hyperte nsion JOSELYN BEARD EBONI 07/11 [facility] REPLACE SEMI PREC ATTACH [id number] Diagnos is: ICD-10- CM K03.6 Deposit s [accret ions] on teeth BELYSHEV,N ADEZHDA 07/14 [facility] DIABETIC CUSTOM MOLDED SHOE [id number] Diagnos is: ICD-10- CM E11.8 Type 2 diabete s mellitu s with unspeci fied complic ations ALEAH DE LA ROSA LUIS 07/14 [facility] Outpatient Encounter [id number] Diagnos is: ICD-10- CM I10 Essenti al (primar y) hyperte nsion TRYBA,TAMM Y 07/21 [facility] HC PRO PHONE CALL 5-10 MIN [id number] Diagnos is: ICD-10- CM I10 Essenti al (primar y) hyperte nsion TRYBA,TAMM Y 07/21 [facility] En[facility] [id number] 07/24 [facility] [place] [place] [facility] ELECTROCAR DIOGRAM REPORT [id number] Diagnos is: ICD-10- CM Z13.6 Encount er for screeni ng for cardiov ascular disorde rs HIMANSHU RENAE 07/24 [place] [facility] [place] OFF/OP EST JULY X REQ PHY/QHP [id number] Diagnos is: ICD-10- CM I48.91 Unspeci fied atrial fibrill ation HIMANSHU CABALLERO [facility] ELECTROCAR DIOGRAM TRACING [id number] HIMANSHU CABALLERO 07/24 [place] [facility] Outpatient Encounter [id number] 07/24 [facility] [place] [facility] Outpatient Encounter [id number] 07/25 [facility] [place] [facility] Outpatient Encounter [id number] 07/28 [facility] OFFICE O/[place] HI 40 MIN [id number] Diagnos is: ICD-10- CM E66.9 Obesity , unspeci fied ОЛЕГ ARRIAGA,OG ENOC M 07/30 [place] [facility] Outpatient Encounter [id number] 08/04 [facility] [place] [facility] Outpatient Encounter [id number] Diagnos is: ICD-10- CM I10 Essenti al (primar y) hyperte nsion TRYBA,TAMM Y 08/15 [facility] En[facility] [id number] 08/20 [facility] En[facility] [id number] 08/25 [facility] En[facility] [id number] 08/29 [facility] OFFICE O/P EST HI 40 MIN [id number] Diagnos is: ICD-10- CM E11.9 Type 2 diabete s mellitu s without complic ations CAROLINE WANG 09/01 [facility] OFF/OP EST MAY X REQ PHY/QHP [id number] Diagnos is: ICD-10- CM E11.9 Type 2 diabete s mellitu s without complic ations SHELLY SANCHEZ 09/01 [facility] Outpatient Encounter [id number] 09/10 [facility] Outpatient Encounter [id number] Diagnos is: ICD-10- CM E11.9 Type 2 diabete s mellitu s without complic ations TRYBA,TAMM Y 09/19 [facility] PRO PHONE CALL 5-10 MIN [id number] Diagnos is: ICD-10- CM R00.0 Tachyca rdia, unspeci fied TRYBA,TAMM Y 09/26 [facility] Outpatient Encounter [id number] 09/29 [facility] PRO PHONE CALL 5-10 MIN [id number] Diagnos is: ICD-10- CM I10 Essenti al (primar y) hyperte nsion TRYBA,TAMM Y 09/29 [facility] HC PRO PHONE CALL 5-10 MIN [id number] Diagnos is: ICD-10- CM I10 Essenti al (primar y) hyperte nsion TRYBA,TAMM Y 09/29 [facility] Outpatient Encounter [id number] 10/20 [facility] [place] [place] MTMS BY PHARM ADDL 15 MIN [id number] Diagnos is: ICD-10- CM E11.9 Type 2 diabete s mellitu s without complic ations SANDY GAMBINO 10/30 [place] [facility] [place] DIG ASSMT&MGMT 5-10 [id number] Diagnos is: ICD-10- CM E11.9 Type 2 diabete s mellitu s without complic ations RICKEY SAM 10/31 [place] [facility] OFFICE O/P EST LOW 20 MIN [id number] 1. Diagnos is: ICD-10- CM Q66.51 Congeni sharon pes planus, right foot FOSTERTANIA RLES D 11/06 [facility] Outpatient Encounter [id number] 11/14 [facility] Encounter [id number] 11/28 [facility] En[facility] [id number] 12/16 [facility] [place] OFF[place] O/P EST MOD 30 MIN [id number] Diagnos is: ICD-10- CM H26.8 Other specifi ed catarTANJA Galvin 12/16 [place] [facility] Out[facility] Encounter [id number] 12/16 [facility] [place] MTMS BY PHARM ADDL 15 MIN [id number] Diagnos is: ICD-10- CM E11.9 Type 2 diabete s mellitu s without complic ations SANDY GAMBINO 12/19 [place] [facility] Encounter [id number] 12/20 [facility] En[facility] [id number] 12/20 [facility] [place] MTMS BY PHARM ADDL 15 MIN [id number] Diagnos is: ICD-10- CM E11.9 Type 2 diabete s mellitu s without complic ations SANDY GAMBINO 12/25 [place] [facility] QNHP OL DIG ASSMT&MGMT 5-10 [id number] Diagnos is: ICD-10- CM E11.9 Type 2 diabete s mellitu s without complic ations HERMILA SYED 12/25 [facility] Outpatient Encounter [id number] 01/15 [facility] CLEAN/INSP ECT ELANA COMP DENT [id number] Diagnos is: ICD-10- CM K03.6 Deposit s [accret ions] on teeth Obed CREWS ADEZHDA 01/16 [facility] Outpatient Encounter [id number] 01/30 [place] [facility] Outpatient Encounter [id number] 02/10 [facility] Outpatient Encounter [id number] 03/23 [facility] Outpatient Encounter [id number] 03/26 [facility] MTMS BY PHARM ADDL 15 MIN [id number] Diagnos is: ICD-10- CM E11.9 Type 2 diabete s mellitu s without complic ations CHIQUITA MELCHOR 04/01 [place] [facility] COMPRE OPH EXAM EST PT 1/> [id number] Diagnos is: ICD-10- CM E11.9 Type 2 diabete s mellitu s without complic ations NATANAEL DAMIAN 04/21 [facility] OFFICE O/P EST LOW 20 MIN [id number] Diagnos is: ICD-10- CM L84 Corns and callosi ties TANIA RUSSELL 04/23 [facility] FIT SPECTACLES MULTIFOCAL [id number] Diagnos is: ICD-10- CM Z46.0 Encount er for fit/adj st of spectac les and contact lenses NATANAEL DAMIAN 04/24 [facility] Out[facility] Encounter [id number] 05/04 [facility] Out[facility] Encounter [id number] 05/12 [facility] NQHP OL DIG ASSMT&MGMT 5-10 [id number] Diagnos is: ICD-10- CM Z79.01 long-term (curren t) use of anticoa gulandl SYEDHERMILA AJAY 05/13 [facility] Outpatient Encounter [id number] 05/25 [facility] [place] OFFICE O/P EST HI 40 MIN [id number] Diagnos is: ICD-10- CM I10 Essenti al (primar y) hyperte nsion MOSES-R ASKU,IRIS JOSE 05/25 [place] [facility] OFFICE O/P EST MOD 30 MIN [id number] Diagnos is: ICD-10- CM E11.43 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 TANIA RUSSELL RLES D 06/11 [facility] CLEAN/INSP ECT ELANA COMP DENT [id number] Diagnos is: ICD-10- CM K03.6 Deposit s [accret ions] on teeth Obed CREWSHDNeo 07/24 [facility] [place] MTMS BY PHARM ADDL 15 MIN [id number] Diagnos is: ICD-10- CM E11.9 Type 2 diabete s mellitu s without complic ations GAMBINO,SANDY DOWNS A 07/29 [place] [facility] Outpatient Encounter [id number] 08/07 [facility] OFFICE O/P EST LOW 20 MIN [id number] Diagnos is: ICD-10- CM 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 Social History Type Response Date Comment Source Tobacco smoking status FLIS RI-TOBACCO NEVER USED 12/17/2023 [facility] History of tobacco use [facility] QU[facility] 15 YRS OR MORE 09/06/2022 [facility] [place] [facility] History of tobacco use RI-TOBACCO FORMER USER 10/02/2021 [facility] History of tobacco use RI-TOBACCO FORMER USER 10/05/2020 [facility] History of tobacco use [facility] QUIT 5 TO < 15 YRS 08/26/2019 [facility] History of tobacco use TOBACCO INPATIENT NO USE 30 DAYS 12/02/2018 [facility] [place] [facility] History of tobacco use ORY[facility] ADMIT TOBACCO SCREEN NO 12/02/2018 [facility] [place] [facility] History of tobacco use RI-TOBACCO FORMER USER 03/19/2018 [facility] History of tobacco use TOBACCO INPATIENT NO USE 30 DAYS 01/20/2018 [facility] [place] [facility] History of tobacco use ORYX ADMIT TOBACCO SCREEN NO 01/20/2018 [facility] History of tobacco use QUIT TOBACCO USE > 7 YEARS AGO 07/04/2017 [facility] History of tobacco use TOBACCO INPATIENT NO USE 30 DAYS 09/24/2016 [facility] History of tobacco use QUIT TOBACCO USE > 7 YEARS AGO 04/03/2016 [facility] History of tobacco use TOBACCO INPATIENT NO USE 30 DAYS 11/29/2015 [facility] History of tobacco use QUIT TOBACCO USE > 7 YEARS AGO 04/06/2015 [facility] History of tobacco use TOBACCO INPATIENT NO USE 30 DAYS 11/18/2014 [facility] History of tobacco use TOBACCO INPATIENT NO USE 30 DAYS 11/18/2014 [facility] History of tobacco use TOBACCO INPATIENT NO USE 30 DAYS 09/01/2013 [facility] History of tobacco use QUIT TOBACCO USE > 7 YEARS AGO 09/10/2012 [facility] History of tobacco use QUIT TOBACCO USE 1-7 YEARS AGO 06/05/2012 Pt. quit 5 years ago. [facility] History of tobacco use QUIT TOBACCO USE 1-7 YEARS AGO 05/22/2011 [facility] History of tobacco use FORMER SMOKER - <100 LIFETIME CIGARETTES 10/04/2010 pipe no inhaling [facility] History of tobacco use QUIT TOBACCO USE 1-7 YEARS AGO 06/20/2010 [facility] History of tobacco use QUIT TOBACCO USE 1-7 YEARS AGO 09/15/2009 Patient quit tobacco use on February 05, 2007. [facility] History of tobacco use QUIT TOBACCO USE 1-7 YEARS AGO 07/15/2008 [facility] History of tobacco use QUIT TOBACCO USE 1-7 YEARS AGO 04/29/2008 [facility] Plan of Care List of future care activities from [facility] facilities. Additional future care activities may be listed in the Assessment and Plan section. Date/Time Care Activity Care Activity Detail Facili ty 09/24/2024 AMBULATORY - MEDICINE AMBULATORY - MEDICI NE [facility] Advance Directives List of completed, amended, or rescinded Advance Directives on record at [facility] facilities. An actual copy of the Directive is not included. Date Advance Directive Provider Source 09/01/2013 ADVANCE DIRECTIVE DISCUSSION TANYA CRUZ [facility] 07/23/2011 ADVANCE DIRECTIVE DISCUSSION TAMMI MOORE JR [facility] 05/14/2008 [facility]
== END 2024-09-24 10:08 | disposition home or self-care (01) ==
LOC: HO.LAB 10:07
PROVIDERS: Visit Provider Urology
DX: D17.71 Benign lipomatous neoplasm of kidney (principal); N40.1 Benign prostatic hyperplasia with lower urinary tract symptoms; R35.1 Nocturia; R80.9 Proteinuria, unspecified; Z13.9 Encounter for screening, unspecified
CPT/HCPCS: 51798; 81003; 88112; 99212

== ENCOUNTER 2024-09-24 10:07 | Outpatient (AMB) | payer OTHER, SELFPAY ==
--- NOTE | 2024-09-24 10:27 | MHC.OFFVIS ---
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 He is status post renal biopsy and cryoablation, 12/24/2022, pathology renal angiomyolipoma. As the renal biopsy indicated an angiomyolipoma, dedicated follow-up imaging is not indicated. He had been seen for elevated PSA and BPH symptoms and was started on tamsulosin. Follow-up PSA, 08/09/2023 is 3.13 ng/mL. He states that he fills medications at the [place] [facility]. He states he goes frequently doing the day. Urinalysis 3+ glucose. Recommend continue tamsulosin 0.4 mg at bedtime. Follow-up in 6 months PSA prior. Review of chart: 08/21/23--Daniel is a 78-year-old male who presents today to the office for a follow-up. He is status post renal biopsy and cryoablation, 12/24/2022, pathology renal angiomyolipoma. He had been seen for elevated PSA and BPH symptoms and was started on tamsulosin. Follow-up PSA, 08/09/2023 is 3.13 ng/mL. The patient states that earlier this month he was seen in the emergency room for a low blood pressure and his blood pressure medications were adjusted. He was concerned about the tamsulosin contributing to the low blood pressure. He ran out of the prescription about 2 weeks ago and is waiting for it to be refilled by the [place]. He states he has seen his PCP since the emergency room visit and they have all of his medications. Urinalysis is within normal limits bladder scan PVR 86 mL. Will have him follow-up in 6 months. 04/24/2023--Daniel was initially sent for evaluation due to right renal mass. 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 I have reviewed results of recent CT scan of 04/02/2023 the cryo ablated mass has no significant enhancement. As the renal biopsy indicated an angiomyolipoma, dedicated follow-up imaging is not indicated. The patient was started on tamsulosin for lower urinary tract symptoms secondary to BPH he states he did not get the medication. He states that he fills medications at the [place] pharmacy. 04/02/23--CTAP The cryoablated mass in the mid right kidney appears less well defined and measures about 1.3 x 1.5 cm in maximal transverse dimension. On the current study, this appears less well-defined but includes some inflammatory changes around it with thickening of the posterior pararenal fascia. There is no significant enhancement. 01/07/23: He states that he is getting up at 3-4 times at night to urinate. AUA score - 15. s/p renal bx and cryoablation on 12/24/22. renal biopsy done on 12/24/22 --revealed angiomyolipoma. Plan, Prescribed tamsulosin 0.4 mg daily. Printed script. Follow-up, PSA prior 11/09/22--CT of the abdomen with and without IV contrast results revealed a 1.3 cm partially solid partially cystic lesion exophytic to the posterior lateral lower pole of the right kidney. (Appearance is concerning for renal neoplasm). PSA results from 10/05/2022 revealed 3.43. [facility] Medical History BRIAN on CPAP Normally functioning cardiac pacemaker present Type 2 diabetes mellitus with unspecified complications Essential hypertension Persistent atrial fibrillation Surgical History History of permanent cardiac pacemaker placement (~2006) Family History Father No problems noted. Mother No problems noted. Social History Alcohol intake: never Patient Tobacco Use Status: Never used Tobacco Review of Systems Const All systems reviewed & are unremarkable except as noted in HPI and below Reports no additional complaints Eyes Reports no additional complaints ENT Reports no additional complaints Card Reports no additional complaints Resp Reports no additional complaints GI Reports no additional complaints Reports as per HPI Musc Reports no additional complaints Skin/Breast Reports system reviewed and no additional complaints, except as documented Neuro Reports no additional complaints Psych Reports no additional complaints Endo Reports no additional complaints Gael/Lymph Reports no additional complaints Aller/Immun Reports no additional complaints Office Procedures Post Void Residual Post Residual Void Post Void Residual (PVR): 71 [id number] Void Residual by ultrasound Results AMB Urinalysis, Automated UA Leukoctes 0 Eliz/uL Last Edit by ONEL Martinez on 09/24/24 11:41 UA Nitrite Negative Last Edit by ONEL Martinez on 09/24/24 11:41 UA Urobilinogen 17 mg/dL Last Edit by Sarai Dye CCM on 09/24/24 11:41 UA Protein 3 mg/dL Last Edit by Sarai Dye CCM on 09/24/24 11:41 UA pH 6.0 Last Edit by Sarai Dye [facility] on 09/24/24 11:41 UA Blood 25 Myke/uL Last Edit by Sarai Dye CCM on 09/24/24 11:41 UA Specific [place] 1.015 Last Edit by Sarai Dye CCM on 09/24/24 11:41 UA Ketone Negative Last Edit by Sarai Dye CCM on 09/24/24 11:41 UA Bilirubin 0 mg/dL Last Edit by Sarai Dye CCM on 09/24/24 11:41 UA Glucose 60 mg/dL Last Edit by Saari Dye [facility] on 09/24/24 11:41 AMB Urinalysis, Automated UA Leukoctes 0 Eliz/uL Last Edit by Nataliya Browne on 09/24/24 16:27 UA Nitrite Negative Last Edit by Nataliya Browne on 09/24/24 16:27 UA Urobilinogen 17 mg/dL Last Edit by Nataliya Browne on 09/24/24 16:27 UA Protein 0.3 mg/dL Last Edit by Nataliya Browne on 09/24/24 16:27 UA pH 6.0 Last Edit by Nataliya Browne on 09/24/24 16:27 UA Blood 25 Myke/uL Last Edit by Nataliya Browne on 09/24/24 16:27 UA Specific [place] 1.015 Last Edit by Nataliya Browne on 09/24/24 16:27 UA Ketone Negative Last Edit by Nataliya Browne on 09/24/24 16:27 UA Bilirubin 0 mg/dL Last Edit by Nataliya Browne on 09/24/24 16:27 UA Glucose 60 mg/dL Last Edit by Nataliya Browne on 09/24/24 16:27 Results Reviewed Results Reviewed: Laboratory Last Values Urine pH (Auto) 6.0 09/24/24 11:41 Specific [place] (Auto) 1.015 09/24/24 11:41 Urine Protein (Auto) 3 mg/dL 09/24/24 11:41 Glucose (UA)(Auto) 60 mg/dL 09/24/24 11:41 Urine Ketones (Auto) Negative 09/24/24 11:41 Urine Blood (Auto) 25 Myke/uL 09/24/24 11:41 Urine Nitrite (Auto) Negative 09/24/24 11:41 Urine Bilirubin (Auto) 0 mg/dL 09/24/24 11:41 Urine Urobilinogen (Auto) 17 mg/dL 09/24/24 11:41 Leukocyte Esterase (Auto) 0 Eliz/uL 09/24/24 11:41 Date of Service: 04/02/23 EXAMINATION: CT ABDOMEN WITHOUT AND WITH CONTRAST CLINICAL INFORMATION: Status post cryoablation of right lower pole renal neoplasm. COMPARISON: CT abdomen 11/07/2022, CT-guided renal ablation 10/24/2022. FINDINGS: LUNG BASES: Dual leads from a bipolar pacemaker are present. The left hemidiaphragm is elevated. Scarring and traction bronchiectasis is present at the lung bases. Calcified granuloma seen at the right lung base. There is a tiny 2 mm right lower lobe nodule (5:14). Findings are unchanged when compared to 11/09/2022. LIVER, GALLBLADDER, AND BILIARY TREE: The liver is normal in size, shape, and attenuation. No focal hepatic lesion or biliary ductal dilatation is present. The gallbladder is unremarkable with no evidence of radiopaque gallstones, gallbladder wall thickening, or obvious pericholecystic inflammatory changes. PANCREAS: Unremarkable. SPLEEN: Unremarkable. ADRENAL GLANDS: Unremarkable. KIDNEYS AND URETERS: Right Kidney: Again seen are 3 water density simple Bosniak class I cysts in the right kidney the largest measuring about 3 cm in size. These benign Bosniak class I cysts need no additional imaging or followup. In the mid right kidney posterolaterally at about 7 o'clock, there is the residua of the 1.4 cm cryoablated mass. On the current study, this appears less well defined and measures about 1.3 x 1.5 cm in maximal transverse dimension (5:117) but includes some inflammatory changes around it with thickening of the posterior pararenal fascia. There are 2 components of the mass. A medial lower attenuation area and a lateral higher attenuation area. On noncontrast images, these 2 areas measure -2 and 19 Hounsfield units and after IV contrast measure 4.9 and 21 Hounsfield units respectively. There is no significant enhancement. No nephrolithiasis. No hydronephrosis. Visualized portion of the right ureter is normal. Left Kidney: The left kidney and visualized ureter appear normal. GASTROINTESTINAL TRACT: The visualized bowel is unremarkable. ABDOMINAL WALL: No significant hernia is appreciated. LYMPH NODES: Normal. VASCULAR: Calcific atherosclerotic changes are present in the aorta and iliac vessels. There is no evidence of an abdominal aortic aneurysm. OSSEOUS STRUCTURES: Degenerative changes are present in the spine. IMPRESSION: 1. The cryoablated mass in the mid right kidney appears less well defined and measures about 1.3 x 1.5 cm in maximal transverse dimension. On the current study, this appears less well-defined but includes some inflammatory changes around it with thickening of the posterior pararenal fascia. There is no significant enhancement. 2. Other incidental findings as described above. Assessment & Plan Assessment & Plan (1) BPH loc w urin obs/LUTS: Code(s): N40.1 - Benign prostatic hyperplasia with lower urinary tract symptoms Category: Medical (2) Renal angiomyolipoma: Code(s): D17.71 - Benign lipomatous neoplasm of kidney Category: Medical (3) Nocturia: Code(s): R35.1 - Nocturia Category: Medical Plan FU in 6 months, cont Tamsulosin. PSA prior. Orders: Orders AMB Urinalysis Automated Today Z13.9 - Encounter for screening, unspecified AMB Urinalysis Automated Today D17.71 - Benign lipomatous neoplasm of kidney, N40.1 - Benign prostatic hyperplasia with lower urinary tract symptoms, R35.1 - Nocturia Urine Cytology Today R35.1 - Nocturia AMB Post Void Residual by ultrasound Today D17.71 - Benign lipomatous neoplasm of kidney, N40.1 - Benign prostatic hyperplasia with lower urinary tract symptoms, R35.1 - Nocturia Referrals Nephrology Referral R80.9 - Proteinuria, unspecified Coding Diagnoses BPH loc w urin obs/LUTS N40.1 Renal angiomyolipoma D17. Nocturia R35.1 CPT Codes Post Residual Void - PVR CPT Code: 35724-[id number] Void Residual by ultrasound ([id number])
== END 2024-09-24 10:59 | disposition home or self-care (01) ==
LOC: HO.HUSH 10:08
PROVIDERS: Visit Provider Urology
DX: R35.1 Nocturia (principal); N40.1 Benign prostatic hyperplasia with lower urinary tract symptoms; D17.71 Benign lipomatous neoplasm of kidney; Z13.9 Encounter for screening, unspecified

== ENCOUNTER 2024-10-21 11:35 | Outpatient (AMB) | payer OTHER, SELFPAY ==
--- NOTE | 2024-10-21 11:42 | HO.NEPHOV_ITS ---
Vital Signs 10/21/24 11:47 Height 6 ft 2 in Weight 254 lb BMI 32.6 BP 110/72 Blood Pressure Location Rt brachial Position Sitting Pulse 81 Pulse Source Pulse Oximeter Pulse Oximetry (%) 97 Oxygen Delivery Method Room Air Intake Visit Reasons: INP: Proteinuria-[facility] Supervisor Required: No Accompanied by: Self / Same As Patient Allergies Ifzshtf-KTE-XlE Reductase Inhibitor (BDKAKUG-OCC-BUF REDUCTASE INHIBITOR) Adverse Reaction (Intermediate, Verified 10/21/24 11:47) LEG PAINS HPI Comments Details: I had the privilege of seeing Uriel in consultation for proteinuria. He has diabetic and hypertensive. He is on semaglutide I assumed his Jardiance. He has BMI of 32.6. He is known to have a pacemaker. He denies any carotid stenosis, CVA, peripheral arterial disease or renal artery stenosis. He is not known to have any renal dysfunction. He has not take any excessive nonsteroidal anti-inflammatories. He does not have any new bone or back pain. He denies any epistaxis, recurrent sinusitis, sore throat, photosensitivity, skin rashes, hematuria, renal calculi, sensorineural deafness, family history of ESRD or renal transplantation. He claims to be compliant with his medications. [facility] Medical History BRIAN on CPAP Normally functioning cardiac pacemaker present Type 2 diabetes mellitus with unspecified complications Essential hypertension Persistent atrial fibrillation Surgical History History of permanent cardiac pacemaker placement (~2006) Family History Father No problems noted. Mother No problems noted. Social History Alcohol intake: never Patient Tobacco Use Status: Never used Tobacco Review of Systems Const All systems reviewed & are unremarkable except as noted in HPI and below Physical Exam Vital Signs: Last Vital Signs Pulse 81 10/21/24 11:47 BP 110/72 10/21/24 11:47 Pulse Ox 97 10/21/24 11:47 Oxygen Delivery Method Room Air 10/21/24 11:47 BMI result Body Mass Index 32.6 Const General: comfortable and no acute distress Orientation/consciousness: patient oriented x3 HEENT Head: Yes normocephalic Mouth: Normal oral and palatal mucosa present Eyes EOM: EOMs intact bilaterally Neck Neck: Yes supple Resp Auscultation: clear to auscultation bilaterally Cardio Jugular venous distension: no JVD Rate: regular rate GI Palpation (GI): Soft to palpation Auscultation: normal bowel sounds General: Yes no CVA tenderness Back/Spine/Pelvis Back: no CVA tenderness Skin General skin exam: no rashes or lesions noted Neuro General: patient oriented x3 and moves all extremities Extrem General: Yes no pedal edema Results Reviewed Nephrology Results: Sodium, (135-145) 141 mmol/L Today Potassium, (3.3-5.1) 3.5 mmol/L Today Chloride, (96-108) 106 mmol/L Today Carbon Dioxide, (22-29) 25 mmol/L Today BUN, (9-16) 11 mg/dL Today Creatinine, (0.5-1.4) 0.87 mg/dL Today Urine Creatinine 52.19 mg/dL Today Protein/Creatinin Ratio, (<0.2) 0.84 H Today Assessment & Plan Assessment & Plan (1) Essential hypertension: Code(s): I10 - Essential (primary) hypertension Category: Medical (2) Proteinuria: Code(s): R80.9 - Proteinuria, unspecified Category: Medical Qualifiers: Proteinuria type: other Qualified Code(s): R80.8 - Other proteinuria Plan 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 I have ordered quantification of protein and repeat renal functions. If he has significant proteinuria he needs more workup and optimization of medications. If his urine protein is not improving, he may need a renal biopsy. He is on SGLT2 inhibitor which we should continue at the current dose. I shall initiate him on ARB at the next visit based on data. He should lose weight. Further management is pending evolving data. All the possibilities have been discussed in detail and I answered all his questions. Orders: Orders Electrolytes Today I10 - Essential (primary) hypertension, R80.9 - Proteinuria, unspecified Protein, 24 Hr Urine Group Today I10 - Essential (primary) hypertension, R80.9 - Proteinuria, unspecified Creatinine Today I10 - Essential (primary) hypertension, R80.9 - Proteinuria, unspecified Blood Urea Nitrogen Today I10 - Essential (primary) hypertension, R80.9 - Proteinuria, unspecified Albumin Level Today I10 - Essential (primary) hypertension, R80.9 - Proteinuria, unspecified Protein Creatinine Ratio, Ur Today I10 - Essential (primary) hypertension, R80.9 - Proteinuria, unspecified Immunofixation, Random Urine Today I10 - Essential (primary) hypertension, R80.9 - Proteinuria, unspecified Coding Level of Care Code New Pt Level 4 (10357) Diagnoses Essential hypertension I10 Other proteinuria R80.8 Proteinuria type: other
[2024-10-21 11:47] VITALS: BP 110/72; PULSE 81; O2SAT 97; BMI 32.6
== END 2024-10-21 12:13 | disposition home or self-care (01) ==
LOC: HO.HKA 11:35
PROVIDERS: Referring Provider Urology; Visit Provider Internal Medicine Nephrology
DX: I10 Essential (primary) hypertension (principal); R80.8 Other proteinuria
CPT/HCPCS: 99204

== ENCOUNTER → 2024-10-21 11:35 | Outpatient (BNVA) | payer OTHER, SELFPAY | PROVIDERS: Referring Provider Urology; Visit Provider Internal Medicine Nephrology | DX: E11.9 Type 2 diabetes mellitus without complications (principal); I10 Essential (primary) hypertension; R80.8 Other proteinuria | CPT/HCPCS: 99202 ==

== ENCOUNTER 2024-10-24 08:20 | Outpatient (REF) | payer OTHER, SELFPAY ==
--- OUTSIDE RECORDS SUMMARY | 2024-10-21 07:35 | XMS_ITS | Continuity of Care Document ---
Author Name [facility] Organization [facility] Care Team Providers Care Executive Coach Name Role Phone [facility] Unavailable Unavailable Problems Combined list of problems from Department of Defense and Veterans Affairs facilities. It does not include entries that were removed or entered in error. 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 [facility] Chronic post-traumatic stress disorder (SNOMED CT 363510569) Active Condition Oct 10, 2017 Entered By: CLARISSA ARMANDO Comment: [email or web address] Entered By: CLARISSA ARMANDO Comment: reviewedMar 30, 2019 Entered By: CLARISSA ARMANDO Comment: reviewedApr 2020 Entered By: CLARISSA ARMANDO Comment: reviewed [place] Diabetes mellitus type 2 Active Condition [facility] Dyspnea Active Condition [facility] Epigastric hernia Active Condition [facility] Exposure to potentially hazardous substance Active Condition Jun 14, 2023 Entered By: ANDREW PORTILLO Comment: Original KEELY Screening performed 04/30/22 [facility] Gout Active Condition [place] History of adenomatous polyp of colon Active Condition Dec 30, 2015 Entered By: ANAI HOLLOWAY MD Comment: colo 08/31 3 large Tubular adenomas removedDec 30, 2015 Entered By: ANAI HOLLOWAY MD Comment: repeat 12/21/2009 - no polypsNov 2017 Entered By: ELVIRA LOCKWOOD Comment: 01/15/18 two polyps removed: Tubulovillous adenoma [place] Hyperlipidemia (SNOMED CT 68324712) Active Condition [place] Hypertension (SNOMED CT 46054161) Active Condition [place] Kidney lesion Active Condition Jan Entered By: DAMIR COLLINS Comment: repeat ct july 2014May 2014 Entered By: DAMIR COLLINS Comment: repeat july 2015Sep 2022 Entered By: OLIMPIA HALL Comment: 08/2022 CT A/P showed 1.9 cm right kidney heterogeneous lesionMay 2023 Entered By: OLIMPIA HALL Comment: repeat CT 10/2022 - f/w [facility] urology [place] L/T (CURRENT) USE - ANTICOAG Active Condition [place] Long-term current use of anticoagulant Active Condition [facility] Microscopic Hematuria (ICD-9-CM 599.72) Active Condition [facility] Obesity Active Condition [place] 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 Stable nodules. 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 Active Diagnosis [facility] [facility] Diagnosis: ICD-10-CM E11.9 Type 2 diabetes mellitus without complications Active Diagnosis [place] Diagnosis: ICD-10-CM K03.6 Deposits [accretions] on teeth Active Diagnosis [facility] [facility] Diagnosis: ICD-10-CM I10 Essential (primary) hypertension Active Diagnosis [place] Diagnosis: ICD-10-CM Z79.01 MCFP (current) use of anticoagulants Active Diagnosis [facility] [facility] Diagnosis: ICD-10-CM Z46.0 Encounter for fit/adjst of spectacles and contact lenses Active Diagnosis [facility] [facility] Diagnosis: ICD-10-CM L84 Corns and callosities Active Diagnosis [facility] [facility] Diagnosis: ICD-10-CM H26.8 Other specified cataract Active Diagnosis [place] Diagnosis: ICD-10-CM 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, right foot Active Diagnosis [facility] [place] [facility] Diagnosis: ICD-10-CM R00.0 Tachycardia, unspecified Active Diagnosis [facility] [facility] Diagnosis: ICD-10-CM E66.9 Obesity, unspecified Active Diagnosis [place] Diagnosis: ICD-10-CM I48.91 Unspecified atrial fibrillation Active Diagnosis [place] Diagnosis: ICD-10-CM Z13.6 Encounter for screening for cardiovascular disorders Active Diagnosis [facility] Diagnosis: ICD-10-CM E11.8 Type 2 diabetes mellitus with unspecified complications Active Diagnosis [facility] Diagnosis: ICD-10-CM G47.30 Sleep apnea, unspecified Active Diagnosis [facility] Diagnosis: ICD-10-CM M20.42 Other hammer toe(s) (acquired), left foot Active Diagnosis [facility] Medications Combined list of outpatient medications from [...] TIMES DAILY NEEDED FOR PAIN ORAL 09/02/2024 [id number] FELIPEAL ICE 2023 100 [facility] ALLOPURINOL 300MG TAB TAKE ONE TABLET BY MOUTH ONCE DAILY FOR GOUT ORAL ACTIVE 08/08/2025 [id number] OLIMPIA HAMEED M 2024 90 [place] ALLOPURINOL 300MG TAB TAKE ONE TABLET BY MOUTH ONCE DAILY FOR GOUT ORAL DISCONT INUED 05/21/2024 [id number] OLIMPIA HAMEED M 2023 90 [facility] AMMONIUM LACTATE 12% LOTION APPLY SMALL AMOUNT TOPICALL Y ONCE DAILY FOR DRY IRRITATE D SKIN APPLY TO LEGS AND FEET DIRECTED TOPICA L 02/28/2024 [id number] 4 OLIMPIA HAMEED M 2022 240 [place] APIXABAN 5MG TAB TAKE ONE TABLET BY MOUTH TWICE DAILY ORAL 05/21/2024 [id number] 4 OLIMPIA HAMEED 2023 180 [facility] CARBOXYMETH YLCELLULOSE NA 0.5% SOLN,OPH INSTILL 1 DROP INTO EACH EYE FOUR TIMES A DAY FOR DRY EYE OPHTHA LMIC ACTIVE 04/22/2025 [id number] 5 DAMIAN,LAC EY J 2024 45 [facility] CARBOXYMETH YLCELLULOSE NA 0.5% SOLN,OPH INSTILL 1 DROP INTO EACH EYE FOUR TIMES A DAY FOR DRY EYE OPHTHA LMIC DISCONT INUED 03/13/2024 [id number] DAMIAN,LAC EY J 2022 45 [facility] CARBOXYMETH YLCELLULOSE NA 1% GEL,OPH APPLY 1 DROP INTO EACH EYE AT BEDTIME FOR DRY EYE OPHTHA LMIC ACTIVE 04/22/2025 [id number] 5 DAMIAN,LAC EY J 2024 15 [facility] CHOLECALCIF MANSOOR 25MCG (1,000UNIT) TAB TAKE ONE TABLET BY MOUTH ONCE DAILY FOR VITAMIN D DEFICIEN CY FOR VITAMIN SUPPLEME NTATION ORAL DISCONT INUED 06/30/2024 [id number] 5 OLIMPIA HAMEED M 2024 100 [place] CHOLECALCIF MANSOOR 25MCG (1,000UNIT) TAB TAKE ONE TABLET BY MOUTH ONCE DAILY FOR VITAMIN D DEFICIEN CY FOR VITAMIN SUPPLEME NTATION ORAL 08/23/2024 [id number] 5 AMPARO MCKENZIE 2024 100 [place] CHOLECALCIF MANSOOR 25MCG (1,000UNIT) TAB TAKE ONE TABLET BY MOUTH ONCE DAILY FOR VITAMIN SUPPLEME NTATION ORAL 12/17/2023 [id number] 4 OLIMPIA HAMEED 2022 90 [place] CYANOCOBALA MIN 1000MCG TAB TAKE ONE TABLET BY MOUTH ONCE DAILY FOR PREVENTI ON OF VITAMIN B12 DEFICIEN CY ORAL DISCONT INUED 06/30/2024 [id number] OLIMPIA HAMEED M 2024 100 [place] CYANOCOBALA MIN 1000MCG TAB TAKE ONE TABLET BY MOUTH EVERY DAY FOR VITAMIN SUPPLEME NTATION ORAL DISCONT INUED BY PROVIDE R 06/10/2024 [id number] 4 JOSE EReid OLIMPIA GOMEZ 2023 90 [place] CYANOCOBALA MIN 1000MCG TAB TAKE ONE TABLET BY MOUTH ONCE DAILY FOR PREVENTI ON OF VITAMIN B12 DEFICIEN CY ORAL 08/23/2024 [id number] 5 AMPARO MCKENZIE S JOSE 2024 100 [place] DICLOFENAC NA 1% GEL,TOP APPLY 4 GRAMS TOPICALL Y FOUR TIMES A DAY FOR JOINT PAIN - USE DOSING CARD PROVIDED IN BOX TOPICA L 04/01/2024 [id number] 4 CATALINAFELISANAZARIO TRACYObedRICH Elena 2023 100 [place] EMPAGLIFLOZ IN 25MG TAB TAKE ONE TABLET BY MOUTH ONCE DAILY FOR DIABETES ORAL 02/14/2024 [id number] 4 WANG,AL ICE 2022 90 [facility] FINASTERIDE 5MG TAB TAKE ONE TABLET BY MOUTH ONCE DAILY ORAL ACTIVE 09/25/2025 [id number] WILLOW COSTELLO 2024 90 [facility] GABAPENTIN 300MG CAP TAKE TWO CAPSULES BY MOUTH THREE TIMES A DAY FOR NERVE PAIN ORAL 05/29/2024 [id number] 5 WANG,AL ICE 2023 540 [facility] HYDROCHLORO THIAZIDE 25MG/TRIAMT ERENE 37.5MG TAB TAKE 1 TABLET BY MOUTH EVERY MORNING FOR HIGH BLOOD PRESSURE (NOTE DOSE) ORAL ACTIVE 05/26/2025 [id number] 5 MOSES- DARREN,IRI S JOSE 2024 90 [place] HYDROCHLORO THIAZIDE 25MG/TRIAMT ERENE 37.5MG TAB TAKE 1 TABLET BY MOUTH EVERY MORNING FOR HIGH BLOOD PRESSURE (NOTE DOSE) ORAL DISCONT INUED 07/31/2024 [id number] 4 ANGI GOMEZ OLIMPIA Elena 2023 90 [place] INSULIN,ASP ART,HUMAN (EQV-NOVOLO G) 100 UNIT/ML,FLE XPEN,3ML INJECT 6 UNITS SUBCUTAN EOUSLY ONCE DAILY FOR DIABETES INJECT WITH DINNER MEAL SUBCUT ANEOUS ACTIVE 07/31/2025 [id number] 5 Bolivar GAMBINO A 2024 5 [place] INSULIN,ASP ART,HUMAN (EQV-NOVOLO G) 100 UNIT/ML,FLE XPEN,3ML INJECT 9 UNITS SUBCUTAN EOUSLY EVERY EVENING BEFORE SUPPER FOR DIABETES (DISCARD EACH PEN 28 DAYS AFTER FIRST USE) SUBCUT ANEOUS 05/29/2024 [id number] 4 WANG,AL ICE 2023 5 [facility] INSULIN,GLA RGINE,HUMAN 100 UNIT/ML INJ,SOLOSTA R,3ML INJECT 10 UNITS SUBCUTAN EOUSLY ONCE DAILY FOR DIABETES SUBCUT ANEOUS ACTIVE 07/31/2025 [id number] 5 Bolivar GAMBINO A 2024 5 [place] INSULIN,GLA RGINE,HUMAN 100 UNIT/ML INJ,SOLOSTA R,3ML INJECT 18 UNITS SUBCUTAN EOUSLY ONCE DAILY SUBCUT ANEOUS DISCONT INUED BY PROVIDE R 09/02/2024 [id number] 5 WANG,AL ICE 2024 10 [facility] INSULIN,GLA RGINE-YFGN 100UNIT/ML INJ PEN,3ML INJECT 18 UNITS SUBCUTAN EOUSLY ONCE DAILY SUBCUT ANEOUS DISCONT INUED (EDIT) 09/02/2024 [id number] 5 WANG,AL ICE 2023 10 [facility] KETOROLAC TROMETHAMIN E 0.5% SOLN,OPH INSTILL 1 DROP INTO THE AFFECTED EYE(S) THREE TIMES A DAY STARTING 2 DAYS PRIOR TO SURGERY. TAPER DIRECTED . OPHTHA LMIC ACTIVE 12/25/2024 [id number] 4 OLGANICKOMARILU 2023 5 [place] KETOROLAC TROMETHAMIN E 0.5% SOLN,OPH INSTILL 1 DROP INTO THE AFFECTED EYE(S) THREE TIMES A DAY STARTING 2 DAYS PRIOR TO SURGERY. TAPER DIRECTED . OPHTHA LMIC DISCONT INUED 12/20/2024 [id number] MARILU ESPINOZA 2023 5 [place] LIDOCAINE 5% PATCH APPLY 1 PATCH TOPICALL Y ONCE DAILY DIRECTED BY PROVIDER (LEAVE PATCH ON FOR 12 HOURS, THEN REMOVE PATCH) TOPICA L 10/28/2023 [id number] 4 OLIMPIA HAMEED M 2023 30 [place] MAGNESIUM OXIDE 420MG TAB TAKE ONE TABLET BY MOUTH ONCE DAILY ORAL ACTIVE 10/13/2025 [id number] 5 OLIMPIA HAMEED M 2024 90 [place] MAGNESIUM OXIDE 420MG TAB TAKE ONE TABLET BY MOUTH EVERY MORNING ORAL 12/17/2023 [id number] 4 OLIMPIA HAMEED 2022 90 [place] METFORMIN HCL 500MG 24HR TAB,SA TAKE FOUR TABLETS BY MOUTH ONCE DAILY ORAL 05/02/2024 [id number] 4 OLIMPIA HAMEED 2023 360 [place] METOPROLOL SUCCINATE 50MG TAB,SA TAKE ONE TABLET BY MOUTH ONCE DAILY AFIB ORAL 05/21/2024 [id number] 5 OLIMPIA HAMEED 2023 90 [facility] POTASSIUM CHLORIDE 20MEQ TAB,SA (DISPERSIBL E) TAKE ONE TABLET BY MOUTH ONCE DAILY FOR LOW POTASSIU M ORAL 10/28/2023 [id number] OLIMPIA HAMEED 2023 5 [place] ROSUVASTATI N CA 40MG TAB TAKE ONE TABLET BY MOUTH ONCE DAILY FOR CHOLESTE ROL ORAL ACTIVE 05/26/2025 [id number] 5 AMPARO MCKENZIE 2024 90 [place] ROSUVASTATI N CA 40MG TAB TAKE ONE TABLET BY MOUTH ONCE DAILY FOR CHOLESTE ROL ORAL DISCONT INUED 05/29/2024 [id number] 5 WANG,AL ICE 2023 90 [facility] SEMAGLUTIDE 2MG/0.75ML INJ,SOLN,PE N,3ML INJECT 2MG SUBCUTAN EOUSLY ONCE A WEEK SUBCUT ANEOUS ACTIVE 04/02/2025 [id number] 5 Bolivar GAMBINO 2024 3 [place] SEMAGLUTIDE 2MG/0.75ML INJ,SOLN,PE N,3ML INJECT 2MG SUBCUTAN EOUSLY ONCE A WEEK SUBCUT ANEOUS DISCONT INUED 09/02/2024 [id number] 4 WANG,AL ICE 2023 1 [facility] SEMAGLUTIDE 2MG/0.75ML INJ,SOLN,PE N,3ML INJECT 2MG SUBCUTAN EOUSLY ONCE A WEEK SUBCUT ANEOUS DISCONT INUED 05/29/2024 [id number] 4 WANG,AL ICE 2023 1 [facility] TAMSULOSIN HCL 0.4MG CAP TAKE ONE CAPSULE BY MOUTH AT BEDTIME ORAL ACTIVE 09/25/2025 [id number] WILLOW COSTELLO 2024 90 [facility] TAMSULOSIN HCL 0.4MG CAP TAKE ONE CAPSULE BY MOUTH EVERY EVENING AT BEDTIME FOR ENLARGED PROSTATE ORAL DISCONT INUED 08/08/2025 [id number] 5 OLIMPIA HAMEED 2024 90 [place] TAMSULOSIN HCL 0.4MG CAP TAKE ONE CAPSULE BY MOUTH EVERY EVENING AT BEDTIME FOR ENLARGED PROSTATE ORAL DISCONT INUED 04/24/2024 [id number] WILLOW COSTELLO S 2023 90 [facility] Allergies, Adverse Reactions, Alerts Combined list of allergies from Department of Defense and Veterans Affairs facilities. It does not include entries that were removed or entered in error. Substance Category Reaction Severity Reaction type Status Date Reported Comments Source ATORVASTATIN Propensity to adverse reactions to drug (finding) Muscle pain MODERATE active 6 [facility] CRESTOR Propensity to adverse reactions to drug (finding) Eruption active 7 [facility] LIPITOR Propensity to adverse reactions to drug (finding) Eruption active 7 [facility] PRAVASTATIN Propensity to adverse reactions to drug (finding) Eruption active 7 [facility] ROSUVASTATIN Propensity to adverse reactions to drug (finding) active 7 [facility] SIMVASTATIN Propensity to adverse reactions to drug (finding) Muscle pain active 3 [facility] SIMVASTATIN Propensity to adverse reactions to drug (finding) active 4 [facility] ZOCOR Propensity to adverse reactions to drug (finding) Eruption active 7 [facility] Immunizations Combined list of available immunizations from the Department of Defense and Veterans Affairs facilities. Immunization Series Date Given Administered By Site Reaction Lot Number CVX Code Drug Electrotype Finisher Status Comments Source INFLUENZA, HIGH-DOSE, TRIVALENT, PF 2023 RONN BHATIA F LEFT DELTO ID [id number] 135 complet ed [facility] INFLUENZA, HIGH-DOSE, QUADRIVALENT 2022 LELAND SANCHEZ LEFT DELTO ID [id number] 197 complet ed Completed Series, [facility] PNEUMOCOCCAL CONJUGATE PCV20, POLYSACCHARID E [id number] CONJUGATE, ADJUVANT, PF 2022 LIBIA VALENTIN LEFT DELTO ID [id number] 216 complet ed [facility] INFLUENZA VACCINE, QUADRIVALENT, ADJUVANTED 2021 205 complet ed [facility] COVID-19 (MODERNA), MRNA, LNP-S, PF, 100 MCG OR 50 MCG DOSE 3 2021 207 complet ed MOD; [id number]; 2 [place] INFLUENZA VACCINE, QUADRIVALENT, ADJUVANTED 2020 205 complet ed [place] ZOSTER RECOMBINANT 2 2020 187 complet ed [place] COVID-19 (MODERNA), MRNA, LNP-S, PF, 100 MCG/0.5 ML DOSE 2 2020 207 complet ed MOD; [id number]; 1 [place] COVID-19 (MODERNA), MRNA, LNP-S, PF, 100 MCG/0.5 ML DOSE 1 2020 207 complet ed MOD; [id number]; 1 [place] INFLUENZA, INJECTABLE, QUADRIVALENT, PRESERVATIVE [...] flu vaccine by his Civilian Provider! ! [facility] PNEUMOCOCCAL, UNSPECIFIED FORMULATION 2006 109 complet ed [facility] Results Combined list of recent chemistry, hematology and other laboratory results from Department of Defense and Veterans Affairs, ranging from 15 months to all on record, depending upon the facility. Order Name Results Value Reference Range Date Interpretation Specimen Comments Source HEMOGLOBI N A1C PANEL HEMOGLOBIN A1C/HEMOGLO BIN.TOTAL [...] July 30, 2024 01:43 PM Reporting Lab: [facility] [address] [facility] [address] Performing Lab: [facility] [place] [facility] [address] [facility] [address] [facility] MICROALBU MIN CREATININ E RATIO PANEL MICROALBUMI N/CREATININ E [MASS RATIO] IN URINE 104.2 mg/g 0 - 29.9 09/16 H Specimen Type: URINE No comment entered. Ordering Provider: DELMA GAMBINO Report Released Date/Time: July 30, 2024 01:43 PM Reporting Lab: [facility] [place] [facility] [address] [facility] [address] Performing Lab: [facility] [place] [facility] [address] [facility] [address] [facility] MICROALBU MIN CREATININ E RATIO PANEL MICROALBUMI N [MASS/VOLUM E] IN URINE BY DETECTION LIMIT <= 1.0 MG/L 9.4 mg/dL 09/16 Specimen Type: URINE No comment entered. Ordering Provider: DELMA GAMBINO Report Released Date/Time: July 30, 2024 01:43 PM Reporting Lab: [facility] [place] [facility] [address] [facility] [address] Performing Lab: [facility] [place] [facility] [address] [facility] [address] [facility] MICROALBU MIN CREATININ E RATIO PANEL CREATININE [MASS/VOLUM E] IN URINE 90.21 mg/dL 63 - 166 09/16 Specimen Type: URINE No comment entered. Ordering Provider: DELMA GAMBINO Report Released Date/Time: July 30, 2024 01:43 PM Reporting Lab: [facility] [place] [facility] [address] [facility] [address] Performing Lab: [facility] [place] [facility] [address] [facility] [address] [facility] LIPID PANEL FASTING CHOLESTEROL [MASS/VOLUM E] IN SERUM OR PLASMA 94 mg/dL 09/16 Specimen Type: SERUM No comment entered. Ordering Provider: DELMA GAMBINO Report Released Date/Time: July 30, 2024 01:43 PM Reporting Lab: [facility] [place] [facility] [address] [address] Performing Lab: [facility] [place] [facility] [address] [facility] [address] [facility] LIPID PANEL FASTING TRIGLYCERID E [MASS/VOLUM E] IN SERUM OR PLASMA 108 mg/dL 0 - 150 09/16 Specimen Type: SERUM No comment entered. Ordering Provider: DELMA GAMBINO Report Released Date/Time: July 30, 2024 01:43 PM Reporting Lab: [facility] [place] [facility] [address] [facility] [address] Performing Lab: [facility] [place] [address] [address] [facility] LIPID PANEL FASTING CHOLESTEROL IN LDL [MASS/VOLUM E] IN SERUM OR PLASMA BY CALCULATION 37 mg/dL 0 - 129 09/16 Specimen Type: SERUM No comment entered. Ordering Provider: DELMA GAMBINO Report Released Date/Time: July 30, 2024 01:43 PM Reporting Lab: [facility] [place] [address] [address] Performing Lab: [facility] [place] [address] [address] [facility] LIPID PANEL FASTING CHOLESTEROL .TOTAL/CHOL ESTEROL IN HDL [MASS RATIO] IN SERUM OR PLASMA 2.7 09/16 Specimen Type: SERUM No comment entered. Ordering Provider: DELMA GAMBINO Report Released Date/Time: July 30, 2024 01:43 PM Reporting Lab: [facility] [place] [facility] [address] [facility] [address] Performing Lab: [facility] [place] [address] [address] [facility] [place] [facility] LIPID PANEL FASTING CHOLESTEROL IN HDL [MASS/VOLUM E] IN SERUM OR PLASMA 35 mg/dL 40 06/25 /2025 L Specimen Type: SERUM No comment entered. Ordering Provider: DELMA GAMBINO Report Released Date/Time: July 30, 2024 01:43 PM Reporting Lab: [facility] [place] [facility] [address] [facility] [address] Performing Lab: [facility] [address] [address] [facility] BASIC METABOLIC PANEL (fasting) UREA NITROGEN [MASS/VOLUM E] IN SERUM OR PLASMA 10 mg/dL 8 - 26 09/16 Specimen Type: SERUM No comment entered. Ordering Provider: DELMA GAMBINO Report Released Date/Time: July 30, 2024 01:43 PM Reporting Lab: [facility] [place] [address] [address] Performing Lab: [facility] [address] [address] [facility] BASIC METABOLIC PANEL (fasting) GLUCOSE [MASS/VOLUM E] IN SERUM OR PLASMA 113 mg/dL 65 - 100 09/16 H Specimen Type: SERUM No comment entered. Ordering Provider: DELMA GAMBINO Report Released Date/Time: July 30, 2024 01:43 PM Reporting Lab: [facility] [place] [address] [address] Performing Lab: [facility] [place] [address] [address] [facility] BASIC METABOLIC PANEL (fasting) SODIUM [MOLES/VOLU ME] IN SERUM OR PLASMA 141 mmol/L 136 - 145 09/16 Specimen Type: SERUM No comment entered. Ordering Provider: DELMA GAMBINO Report Released Date/Time: July 30, 2024 01:43 PM Reporting Lab: [facility] [place] [address] [address] Performing Lab: [facility] [place] [address] [address] [facility] BASIC METABOLIC PANEL (fasting) POTASSIUM [MOLES/VOLU ME] IN SERUM OR PLASMA 3.5 mmol/L 3.5 - 5.1 09/16 Specimen Type: SERUM No comment entered. Ordering Provider: DELMA GAMBINO Report Released Date/Time: July 30, 2024 01:43 PM Reporting Lab: [facility] [address] Performing Lab: [facility] [address] [facility] BASIC METABOLIC PANEL (fasting) CHLORIDE [MOLES/VOLU ME] IN SERUM OR PLASMA 106 mmol/L 98 - 107 09/16 Specimen Type: SERUM No comment entered. Ordering Provider: DELMA GAMBINO Report Released Date/Time: July 30, 2024 01:43 PM Reporting Lab: [facility] [address] Performing Lab: [facility] [address] [facility] BASIC METABOLIC PANEL (fasting) CARBON DIOXIDE, TOTAL [MOLES/VOLU ME] IN SERUM OR PLASMA 28 meq/L 23 - 31 09/16 Specimen Type: SERUM No comment entered. Ordering Provider: DELMA GAMBINO Report Released Date/Time: July 30, 2024 01:43 PM Reporting Lab: [facility]ITALTRN MASSUSE[address] [address] Performing Lab: [facility] [address] [facility]ITALRSOUT[facility]ERN [facility]ITALUSE [facility] BASIC METABOLIC PANEL (fasting) CALCIUM [MASS/VOLUM E] IN SERUM OR PLASMA 10.2 mg/dL 8.8 - 10 09/16 H Specimen Type: SERUM No comment entered. Ordering Provider: DELMA GAMBINO Report Released Date/Time: July 30, 2024 01:43 PM Reporting Lab: [facility]ITALTRN MASSUSE[address] [address] Performing Lab: [facility] CNTRL W[facility]N [facility] [address] [facility] [address] [facility] W[facility]N [facility]ITALUSE [facility] BASIC METABOLIC PANEL (fasting) CREATININE [MASS/VOLUM E] IN SERUM OR PLASMA 0.83 mg/dL 0.72 - 1.25 09/16 Specimen Type: SERUM No comment entered. Ordering Provider: DELMA GAMBINO Report Released Date/Time: July 30, 2024 01:43 PM Reporting Lab: [facility] [place] [facility] [address] [facility] [address] Performing Lab: [facility] [address] [facility]ITALRL TRN [facility]ITALUSE [facility] BASIC METABOLIC PANEL (fasting) GLOMERULAR FILTRATION RATE/1.73 SQ M.PREDICTED [VOLUME RATE/AREA] IN SERUM, PLASMA OR BLOOD BY CREATININE- BASED FORMULA (CKD-EPI 2020) 89 mL/min 60 09/16 Specimen Type: SERUM No comment entered. Ordering Provider: DELMA GAMBINO Report Released Date/Time: July 30, 2024 01:43 PM Reporting Lab: [facility] [address] Performing Lab: [facility] [address] [email or web address] CBC LEUKOCYTES [#/VOLUME] IN BLOOD BY AUTOMATED COUNT 5.22 10*3/u L 4.50 - 11.00 09/16 Specimen Type: BLOOD No comment entered. Ordering Provider: DELMA GAMBINO Report Released Date/Time: July 30, 2024 01:43 PM Reporting Lab: [facility] [address] Performing Lab: [facility] [address] [email or web address] CBC ERYTHROCYTE S [#/VOLUME] IN BLOOD BY AUTOMATED COUNT 4.78 10*6/u L 4.23 - 5.66 09/16 Specimen Type: BLOOD No comment entered. Ordering Provider: DELMA GAMBINO Report Released Date/Time: July 30, 2024 01:43 PM Reporting Lab: [facility] [address] [facility] [address] Performing Lab: [facility] [address] [facility] [address] [facility] CBC HEMOGLOBIN [MASS/VOLUM E] IN BLOOD 14.2 g/dL 12.8 - 17 09/16 Specimen Type: BLOOD No comment entered. Ordering Provider: DELMA GAMBINO Report Released Date/Time: July 30, 2024 01:43 PM Reporting Lab: [facility] [place] [facility] [address] [facility] [address] Performing Lab: [facility] [place] [facility] [address] [facility] [address] [facility] CBC HEMATOCRIT [VOLUME FRACTION] OF BLOOD BY AUTOMATED COUNT 42.8 39.2 - 50.4 09/16 Specimen Type: BLOOD No comment entered. Ordering Provider: DELMA GAMBINO Report Released Date/Time: July 30, 2024 01:43 PM Reporting Lab: [facility] [place] [facility] [address] [facility] [address] Performing Lab: [facility] [place] [facility] [address] [facility] [address] [facility] [place] [facility] CBC MCV [ENTITIC VOLUME] BY AUTOMATED COUNT 89.5 fL 82 - 99 09/16 Specimen Type: BLOOD No comment entered. Ordering Provider: DELMA GAMBINO Report Released Date/Time: July 30, 2024 01:43 PM Reporting Lab: [facility] [place] [facility] [address] [facility] [address] Performing Lab: [facility] [place] [facility] [address] [facility] [address] [facility] [place] [facility] CBC MCHC [MASS/VOLUM E] BY AUTOMATED COUNT 33.2 g/dL 30.8 - 35.1 06/25 /2025 Specimen Type: BLOOD No comment entered. Ordering Provider: DELMA GAMBINO Report Released Date/Time: July 30, 2024 01:43 PM Reporting Lab: [facility] [address] [facility] [address] Performing Lab: [facility] [place] [facility] [address] [facility] [address] [facility] [place] [facility] CBC PLATELETS [#/VOLUME] IN BLOOD BY AUTOMATED COUNT 223 10*3/u L 140 - 360 09/16 Specimen Type: BLOOD No comment entered. Ordering Provider: DELMA GAMBINO Report Released Date/Time: July 30, 2024 01:43 PM Reporting Lab: [facility] [place] [facility] [address] [facility] [address] Performing Lab: [facility] [place] [address] [address] [facility] [place] [facility] CBC PLATELET MEAN VOLUME [ENTITIC VOLUME] IN BLOOD BY AUTOMATED COUNT 10.1 fL 9.2 - 12.4 09/16 Specimen Type: BLOOD No comment entered. Ordering Provider: DELMA GAMBINO Report Released Date/Time: July 30, 2024 01:43 PM Reporting Lab: [facility] [place] [facility] [address] [facility] [address] Performing Lab: [facility] [place] [address] [address] [facility] [place] [facility] CBC ERYTHROCYTE DISTRIBUTIO N WIDTH [RATIO] BY AUTOMATED COUNT 14.3 12.0 - 16.0 09/16 Specimen Type: BLOOD No comment entered. Ordering Provider: DELMA GAMBINO Report Released Date/Time: July 30, 2024 01:43 PM Reporting Lab: [facility] [place] [facility] [address] [facility] [address] Performing Lab: [facility] [place] [address] [address] [facility] [place] [facility] CBC MCH [ENTITIC MASS] BY AUTOMATED COUNT 29.7 pg 26.2 - 32.6 09/16 Specimen Type: BLOOD No comment entered. Ordering Provider: DELMA GAMBINO Report Released Date/Time: July 30, 2024 01:43 PM Reporting Lab: [facility]ITALRTHOM[facility] HOSPITALTRN [facility]USE[facility] [address] [facility] [address] Performing Lab: [facility] W[facility]N [address]SE[address] [address] [facility] [[email or web address]N [facility]ITAL[facility] URIC ACID URATE [MASS/VOLUM E] IN SERUM OR PLASMA 2.8 mg/dL 3.5 - 7.2 11/25 L Specimen Type: SERUM No comment entered. Ordering Provider: VIRAJ DAILY Report Released Date/Time: Jun 16, 2023 02:37 PM Reporting Lab: [facility] [address] [address] Performing Lab: [facility]ITALRTHOMAS HOSPITALTRN [facility] [address] [place] MICROALBU MIN CREATININ E RATIO PANEL MICROALBUMI N/CREATININ E [MASS RATIO] IN URINE 23.4 mg/g 0 - 29.9 11/25 Specimen Type: URINE No comment entered. Ordering Provider: VIRAJ DAILY Report Released Date/Time: Jun 16, 2023 02:37 PM Reporting Lab: [facility] [address] [address] Performing Lab: [facility] [place] [address] [address] [place] MICROALBU MIN CREATININ E RATIO PANEL MICROALBUMI N [MASS/VOLUM E] IN URINE 1.6 mg/dL 11/25 Specimen Type: URINE No comment entered. Ordering Provider: VIRAJ DAILY Report Released Date/Time: Jun 16, 2023 02:37 PM Reporting Lab: [facility]OM[facility] HOSPITALTRN [facility]ITALUSE[address] [address] Performing Lab: [facility] [address] [facility] [address] [place] MICROALBU MIN CREATININ E RATIO PANEL CREATININE [MASS/VOLUM E] IN URINE 68.45 mg/dL 11/25 Specimen Type: URINE No comment entered. Ordering Provider: VIRAJ DAILY Report Released Date/Time: Jun 16, 2023 02:37 PM Reporting Lab: [address] [address] Performing Lab: [address] [address] [place] VITAMIN B12 COBALAMIN (VITAMIN B12) [MASS/VOLUM E] IN SERUM OR PLASMA 1367 pg/mL 200 - 900 11/25 H Specimen Type: SERUM No comment entered. Ordering Provider: VIRAJ DAILY Report Released Date/Time: Jun 16, 2023 02:37 PM Reporting Lab: [address] [address] Performing Lab: [address] [address] [place] VITAMIN D (25-OH) 25-HYDROXYV ITAMIN D3 [MASS/VOLUM E] IN SERUM OR PLASMA 37 ng/mL 20 - 50 11/25 Specimen Type: SERUM No comment entered. Ordering Provider: VIRAJ DAILY Report Released Date/Time: Jun 16, 2023 02:37 PM Reporting Lab: [facility] [address] Performing Lab: [facility] [address] [place] MAGNESIUM MAGNESIUM [MASS/VOLUM E] IN SERUM OR PLASMA 1.8 mg/dL 1.6 - 2.6 11/25 Specimen Type: SERUM No comment entered. Ordering Provider: VIRAJ DAILY Report Released Date/Time: Jun 16, 2023 02:37 PM Reporting Lab: [facility] [address] [facility] [address] Performing Lab: [facility] [address] [facility] [address] RON PANDEY Vital Signs Combined list of inpatient and [...] kg/m2 05/25/2024 09:46:18 [facility] [place] [facility] TEMPERATURE 95.6 05/25/2024 09:46:18 [facility] PULSE 86 05/25/2024 09:46:18 [facility] [place] [facility] SYSTOLIC BLOOD PRESSURE 130 12/17/19 24 09:20:56 [place] DIASTOLIC BLOOD PRESSURE 77 024 09:20:56 [place] PULSE OXIMETRY 98 12/17/2023 09:20:56 [place] WEIGHT 259 12/17/2023 09:20:56 [place] BMI 33 kg/m2 12/17/2023 09:20:56 [place] TEMPERATURE 97 12/17/2023 09:20:56 [place] PULSE 90 12/17/2023 09:20:56 [place] RESPIRATION 18 12/17/2023 09:20:56 [place] Encounters Combined list of: 1) Encounters from [facility] facilities going backup to the last 18 months, not all VA inpatient encounters are included; 2) Encounters from the 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 Location Location Details Encounter Type Encounter Number Reason For Visit Attending Provider ADM Date DC Date Status Disposition Source [facility] PRO PHONE CALL 5-10 MIN [id number] Diagnos is: ICD-10- CM I10 Essenti al (primar y) hyperte nsion SERJIO JAMES R 04/23 [facility] En[facility] [id number] 04/24 [facility] Encounter [id number] Diagnos is: ICD-10- CM E11.9 Type 2 diabete s mellitu s without complic ations SERJIO JAMES ECCNeo R 04/24 [facility] PRO PHONE CALL 11-20 MIN [id number] Diagnos is: ICD-10- CM I10 Essenti al (primar y) hyperte nsion ALEA,DEB AN M 04/24 [facility] PRO PHONE CALL 5-10 MIN [id number] Diagnos is: ICD-10- CM I10 Essenti al (primar y) hyperte nsion JOSELYN BEARD 05/01 [facility] En[facility] [id number] 05/09 [facility] Encounter [id number] Diagnos is: ICD-10- CM E11.9 Type 2 diabete s mellitu s without complic ations TRYBA,TAMM Y 05/20 [facility] PRO PHONE CALL 5-10 MIN [id number] Diagnos is: ICD-10- CM E11.9 Type 2 diabete s mellitu s without complic ations TRYBA,TAMM Y 05/20 [facility] HC PRO PHONE CALL 11-20 MIN [id number] Diagnos is: ICD-10- CM E11.9 Type 2 diabete s mellitu s without complic ations TRYBA,TAMM Y 05/21 [facility] OFFICE O/P EST LOW 20 MIN [id number] Diagnos is: ICD-10- CM M20.42 Other hammer toe(s) (acquir ed), left foot TANIA RUSSELL D 05/21 [facility] En[facility] [id number] [facility] OFFICE O/[place] 40 MIN [id number] Diagnos is: ICD-10- CM E11.9 Type 2 diabete s mellitu s without complic ations CAROLINE WANG [facility] Encounter [id number] [facility] Encounter [id number] 05/27 [facility] Encounter [id number] 05/28 [facility] OFFICE O/[place] HI 40 MIN [id number] Diagnos is: ICD-10- CM E11.9 Type 2 diabete s mellitu s without complic ations CAROLINE WANG CE 05/28 [facility] OFF/OP EST MAY X REQ PHY/QHP [id number] Diagnos is: ICD-10- CM E11.9 Type 2 diabete s mellitu s without complic ations ALFREDO SILVA A 05/28 [facility] Outpatient Encounter [id number] 06/09 [facility] OFFICE O/P EST MOD 30 MIN [id number] Diagnos is: ICD-10- CM E66.9 Obesity , unspeci fied CHIQUITA MELCHOR 06/09 [place] [facility] COLLJ & INTERPJ DATA EA 30 D [id number] Diagnos is: ICD-10- CM G47.30 Sleep apnea, unspeci fied STEFAN ARELLANO A 06/10 [facility] Outpatient Encounter [id number] Diagnos is: ICD-10- CM E11.9 Type 2 diabete s mellitu s without complic ations TRYBATAMM Y 06/18 [facility] Outpatient Encounter [id number] 06/19 [facility] PRO PHONE CALL 5-10 MIN [id number] Diagnos is: ICD-10- CM I10 Essenti al (primar y) hyperte nsion FARTUN, LISSY A 07/07 [facility] PRO PHONE CALL 21-30 MIN [id number] Diagnos is: ICD-10- CM I10 Essenti al (primar y) hyperte JOSELYN Rai 07/09 [facility] HC PRO PHONE CALL 5-10 MIN [id number] Diagnos is: ICD-10- CM I10 Essenti al (primar y) hyperte JOSELYN Rai 07/10 [facility] Outpatient Encounter [id number] 07/11 [facility] PRO PHONE CALL 5-10 MIN [id number] Diagnos is: ICD-10- CM I10 Essenti al (primar y) hyperte JOSELYN Rai EBONI 07/11 [facility] REPLACE SEMI PREC ATTACH [id number] Diagnos is: ICD-10- CM K03.6 Deposit s [accret ions] on teeth BELYSHEV,N ADEZHDA 07/14 [facility] DIABETIC CUSTOM MOLDED SHOE [id number] Diagnos is: ICD-10- CM E11.8 Type 2 diabete s mellitu s with unspeci fied complic ations ALEAH DE LA ROSA LUIS 07/14 [facility] Outpatient Encounter [id number] Diagnos is: ICD-10- CM I10 Essenti al (primar y) hyperte nsion TRYBA,TAMM Y 07/21 [facility] HC PRO PHONE CALL 5-10 MIN [id number] Diagnos is: ICD-10- CM I10 Essenti al (primar y) hyperte nsion TRYBA,TAMM Y 07/21 [facility] En[facility] [id number] 07/24 [facility] ELECTROCAR DIOGRAM REPORT [id number] Diagnos is: ICD-10- CM Z13.6 Encount er for screeni ng for cardiov ascular disorde rs HIMANSHU RENAE 07/24 [place] [facility] [place] OFF/OP EST JULY X REQ PHY/QHP [id number] Diagnos is: ICD-10- CM I48.91 Unspeci fied atrial fibrill ation HIMANSHU CABALLERO 07/24 [place] ELECTROCAR DIOGRAM TRACING [id number] HIMANSHU CABALLERO 07/24 [place] [facility] Outpatient Encounter [id number] 07/24 [facility] En[facility] [id number] 07/25 [facility] Encounter [id number] 07/28 [facility] [place] 40 MIN [id number] Diagnos is: ICD-10- CM E66.9 Obesity , unspeci fied CHIQUITA MELCHOR 07/30 [place] [facility] Out[facility] Encounter [id number] 08/04 [facility] Out[facility] Encounter [id number] Diagnos is: ICD-10- CM I10 Essenti al (primar y) hyperte nsion TRYBA,TAMM Y 08/15 [facility] En[facility] [id number] 08/20 [facility] Encounter [id number] 08/25 [facility] Out[facility] Encounter [id number] 08/29 [facility] OFF[place] HI 40 MIN [id number] Diagnos is: ICD-10- CM E11.9 Type 2 diabete s mellitu s without complic ations CAROLINE WANG 09/01 [facility] OFF/OP EST MAY X REQ PHY/QHP [id number] Diagnos is: ICD-10- CM E11.9 Type 2 diabete s mellitu s without complic ations SHELLY SANCHEZ 09/01 [facility] En[facility] [id number] 09/10 [facility] Out[facility] Encounter [id number] Diagnos is: ICD-10- CM E11.9 Type 2 diabete s mellitu s without complic ations TRYBA,TAMM Y 09/19 [facility] HC PRO PHONE CALL 5-10 MIN [id number] Diagnos is: ICD-10- CM R00.0 Tachyca rdia, unspeci fied TRYBA,TAMM Y 09/26 [facility] Out[facility] En[facility] [id number] 09/29 [facility] HC PRO PHONE CALL 5-10 MIN [id number] Diagnos is: ICD-10- CM I10 Essenti al (primar y) hyperte nsion TRYBA,TAMM Y 09/29 [facility] HC PRO PHONE CALL 5-10 MIN [id number] Diagnos is: ICD-10- CM I10 Essenti al (primar y) hyperte nsion TRYBA,TAMM Y 09/29 [facility] Out[facility] Encounter [id number] 10/20 [facility] [place] MTMS BY PHARM ADDL 15 MIN [id number] Diagnos is: ICD-10- CM E11.9 Type 2 diabete s mellitu s without complic ations SANDY GAMBINO 10/30 [place] QNHP OL DIG ASSMT&MGMT 5-10 [id number] Diagnos is: ICD-10- CM E11.9 Type 2 diabete s mellitu s without complic ations RICKEY SAM 10/31 [place] [facility] OFFICE O/P EST LOW 20 MIN [id number] 1. Diagnos is: ICD-10- CM Q66.51 Congeni sharon pes planus, right foot FOSTER,TANIA RLLIAM D 11/06 [facility] En[facility] [id number] [facility] Encounter [id number] [facility] Out[facility] Encounter [id number] 12/16 [facility] [place] OFFICE O/P EST MOD 30 MIN [id number] Diagnos is: ICD-10- CM H26.8 Other specifi ed catarTANJA [place]Glvin [place] [facility] En[facility] [id number] 12/16 [facility] [place] MTMS BY PHARM ADDL 15 MIN [id number] Diagnos is: ICD-10- CM E11.9 Type 2 diabete s mellitu s without complic ations SANDY GAMBINO 12/19 [place] [facility] Out[facility] En[facility] [id number] 12/20 [facility] Out[facility] Encounter [id number] 12/20 [facility] [place] MTMS BY PHARM ADDL 15 MIN [id number] Diagnos is: ICD-10- CM E11.9 Type 2 diabete s mellitu s without complic ations SANDY GAMBINO 12/25 [place] [facility] QNHP OL DIG ASSMT&MGMT 5-10 [id number] Diagnos is: ICD-10- CM E11.9 Type 2 diabete s mellitu s without complic ations HERMILA SYED 12/25 [facility] Out[facility] Encounter [id number] 01/15 [facility] CLEAN/INSP ECT ELANA COMP DENT [id number] Diagnos is: ICD-10- CM K03.6 Deposit s [accret ions] on teeth Obed CREWS 01/16 [facility] [place] Outpatient Encounter [id number] 01/30 [place] [facility] Outpatient Encounter [id number] 02/10 [facility] Out[facility] Encounter [id number] 03/23 [facility] Out[facility] Encounter [id number] 03/26 [facility] [place] MTMS BY PHARM ADDL 15 MIN [id number] Diagnos is: ICD-10- CM E11.9 Type 2 diabete s mellitu s without complic ations CHIQUITA MELCHOR 04/01 [place] [facility] COMPRE [place] EXAM EST PT 1/ [id number] Diagnos is: ICD-10- CM E11.9 Type 2 diabete s mellitu s without complic ations NATANAEL DAMIAN Albina 04/21 [facility] OFFICE O/P EST LOW 20 MIN [id number] Diagnos is: ICD-10- CM L84 Corns and callosi ties TANIA RUSSELL RLES D 04/23 [facility] FIT SPECTACLES MULTIFOCAL [id number] Diagnos is: ICD-10- CM Z46.0 Encount er for fit/adj st of spectac les and contact lenses NATIJANIBrittany Cezar Montemayor 04/24 [facility] Outpatient Encounter [id number] 05/04 [facility] Out[facility] Encounter [id number] 05/12 [facility] NQHP OL DIG ASSMT&MGMT 5-10 [id number] Diagnos is: ICD-10- CM 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 HERMILA Salgado 05/13 [facility] Out[facility] Encounter [id number] 05/25 [facility] [place] OFFICE O/P EST HI 40 MIN [id number] Diagnos is: ICD-10- CM I10 Essenti al (primar y) hyperte nsion MOSES-R ASKU,IRIS JOSE 05/25 [place] [facility] OFFICE O/P EST MOD 30 MIN [id number] Diagnos is: ICD-10- CM E11.43 Type 2 diabete s w diabeti c autonom ic (poly)n europat TANIA RUSSELL D 06/11 [facility] CLEAN/INSP ECT ELANA COMP DENT [id number] Diagnos is: ICD-10- CM K03.6 Deposit s [accret ions] on teeth Obed CREWS ADESUZE 07/24 [facility] MTMS BY PHARM ADDL 15 MIN [id number] Diagnos is: ICD-10- CM E11.9 Type 2 diabete s mellitu s without complic ations SANDY GAMBINO 07/29 [place] [facility] Outpatient Encounter [id number] 08/07 [facility] [place] [facility] [place] [facility] OFFICE O/P EST LOW 20 MIN [id number] Diagnos is: ICD-10- CM E11.43 Type 2 diabete s w diabeti c autonom ic (poly[facility] TANIA RUSSELL D 09/16 [facility] [place] [facility] [place] [facility] Outpatient Encounter [id number] 10/09 [facility] [place] [facility] [place] [facility] Outpatient Encounter [id number] 10/12 [facility] [place] [facility] Social History Combined list of available smoking, tobacco, and other social history from Department of Defense and Veterans Affairs facilities. Social History Type Response Date Comment Source Tobacco smoking status [facility]-TOBAC[facility] NEVER USED 12/17/2023 [place] History of tobacco use PA-TOBACCO FORMER USER 09/06/2022 [facility] [place] [facility] History of tobacco use PA-TOBACCO FORMER USER 10/02/2021 [place] History of tobacco use PA-TOBACCO FORMER USER 10/05/2020 [place] History of tobacco use PA-TOBACCO QUIT 5 TO < 15 YRS 08/26/2019 [place] History of tobacco use TOBACCO INPATIENT NO USE 30 DAYS 12/02/2018 [facility] [place] [facility] History of tobacco use ORYX ADMIT TOBACCO SCREEN NO 12/02/2018 [facility] [place] [facility] of [facility] 15 [facility] 03/19/2018 [place] History of tobacco use TOBACCO INPATIENT NO USE 30 DAYS 01/20/2018 [facility] [place] [facility] History of tobacco use ORYX ADMIT TOBACCO SCREEN NO 01/20/2018 [facility] History of tobacco use QUIT TOBACCO USE > 7 YEARS AGO 07/04/2017 [place] History of tobacco use TOBACCO INPATIENT NO USE 30 DAYS 09/24/2016 [facility] [facility] History of tobacco use QUIT TOBACCO USE > 7 YEARS AGO 04/03/2016 [place] History of tobacco use TOBACCO INPATIENT NO USE 30 DAYS 11/29/2015 [facility] [facility] History of tobacco use QUIT TOBACCO USE > 7 YEARS AGO 04/06/2015 [place] History of tobacco use TOBACCO INPATIENT NO USE 30 DAYS 11/18/2014 [facility] [place] [facility] History of tobacco use TOBACCO INPATIENT NO USE 30 DAYS 11/18/2014 [facility] [place] [facility] History of tobacco use TOBACCO INPATIENT NO USE 30 DAYS 09/01/2013 [facility] [place] [facility] History of tobacco use QUIT TOBACCO USE > 7 YEARS AGO 09/10/2012 [facility] [place] [facility] History of tobacco use QUIT TOBACCO USE 1-7 YEARS AGO 06/05/2012 Pt. quit 5 years ago. [place] History of tobacco use QUIT TOBACCO USE 1-7 YEARS AGO 05/22/2011 [facility] [place] [facility] History of tobacco use FORMER SMOKER - <100 LIFETIME CIGARETTES 10/04/2010 pipe no inhaling [place] History of tobacco use QUIT TOBACCO USE 1-7 YEARS AGO 06/20/2010 [facility] History of tobacco use QUIT TOBACCO USE 1-7 YEARS AGO 09/15/2009 Patient quit tobacco use on February 05, 2007. [place] History of tobacco use QUIT TOBACCO USE 1-7 YEARS AGO 07/15/2008 [place] History of tobacco use QUIT TOBACCO USE 1-7 YEARS AGO 04/29/2008 [place] Plan of Care List of future care activities from [facility] facilities. Additional future care activities may be listed in the Assessment and Plan section. Date/Time Care Activity Care Activity Detail Facili ty 10/21/2024 AMBULATORY - MEDICINE AMBULATORY - MEDICI NE [facility] Advance Directives List of completed, amended, or rescinded Advance Directives on record at [facility] facilities. An actual copy of the Directive is not included. Date Advance Directive Provider Source 09/01/2013 ADVANCE DIRECTIVE DISCUSSION TANYA CRUZ [facility] 07/23/2011 ADVANCE DIRECTIVE DISCUSSION TAMMI MOORE JR [facility] 05/14/2008 [facility]
[2024-10-24 10:06] LABS: Albumin Level 4.2 g/dL (3.5-5.0); Anion Gap 14 (12-20); Blood Urea Nitrogen 11 mg/dL (9-16); Carbon Dioxide 25 mmol/L (22-29); Chloride 106 mmol/L (96-108); Estimated Glomerular Filt Rate > 60; Potassium 3.5 mmol/L (3.3-5.1); Sodium 141 mmol/L (135-145)
[2024-10-24 10:31] LABS: Protein/Creatinine Ratio, Ur 0.84 (<0.2); Total Protein Urine Random 44 mg/dL (<12)
[2024-10-24 10:54] LABS: Creatinine, mg/dL 53.13
[2024-10-24 11:38] LABS: Total Volume 24 Hour Urine 2250 mL
== END 2024-10-24 08:21 | disposition home or self-care (01) ==
LOC: HO.LAB 08:20
PROVIDERS: PCP Internal Medicine; Visit Provider Internal Medicine Nephrology
DX: I10 Essential (primary) hypertension (principal); R80.9 Proteinuria, unspecified
CPT/HCPCS: 80051; 82040; 82565; 82570; 84156; 84520; 86335

== ENCOUNTER 2024-11-03 09:55 | Outpatient (AMB) | payer OTHER, SELFPAY ==
--- NOTE | 2024-11-03 10:07 | MHC.OFFVIS ---
Vital Signs 11/03/24 10:08 Height 6 ft 2 in Weight 250 lb 14.177 oz BMI 32.2 BP 110/54 L Blood Pressure Location Lt brachial Position Sitting Pulse 55 Pulse Source Pulse Oximeter Intake Visit Reasons: 6 month follow up Snuff Box Finisher Required: No Accompanied by: Spouse Allergies Xhaepct-FCD-OqB Reductase Inhibitor (RYWOXTI-YMU-MAV REDUCTASE INHIBITOR) Adverse Reaction (Intermediate, Verified 10/21/24 11:47) LEG PAINS Medication List - Last Reconciled 11/03/24 by Emiliano Roblero MD allopurinol 300 mg PO DAILY apixaban (Eliquis) 5 mg PO BID cyanocobalamin (vitamin B-12) 1,000 mcg PO DAILY empagliflozin 25 mg PO DAILY finasteride 5 mg PO DAILY 90 days gabapentin 300 mg PO DAILY insulin aspart U-100 (Novolog FlexPen U-100 Insulin aspart) 100 units subcut DAILY lidocaine 5% 1 patch topical DAILY metformin 500 mg PO BID metoprolol succinate ER (Toprol XL) 50 mg PO DAILY rosuvastatin 10 mg PO DAILY semaglutide 1 mg subcut QWEEK tamsulosin 0.4 mg PO BEDTIME 90 days triamterene-hydrochlorothiazid 37.5-25 mg 1 cap PO DAILY HPI Comments Details: Daniel returns for follow-up regarding atrial fibrillation as well as pacemaker. 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 That led to permanent pacemaker implantation. It appears that [facility] Overall, he states he feels good. No cardiac symptoms. [facility] Medical History BRIAN on CPAP Normally functioning cardiac pacemaker present Type 2 diabetes mellitus with unspecified complications Essential hypertension Persistent atrial fibrillation Surgical History History of permanent cardiac pacemaker placement (~2006) Family History Father No problems noted. Mother No problems noted. Social History Alcohol intake: never Patient Tobacco Use Status: Never used Tobacco Review of Systems Const Denies daytime sleepiness, Denies difficulty sleeping, Denies snoring, Denies stops breathing during sleep and Denies weakness Card Denies chest pain, Denies rapid heart rate, Denies irregular heart rhythm, Denies claudication, Denies leg edema, Denies lightheadedness, Denies palpitations, Denies dyspnea, Denies dyspnea on exertion, Denies orthopnea, Denies paroxysmal nocturnal dyspnea and Denies slow heart rate Resp Denies cough, Denies dyspnea, Denies dyspnea on exertion and Denies snoring GI Reports no additional complaints, Denies hematochezia, Denies change in stool character and Denies dyspepsia Musc Denies abnormal gait, Denies muscle weakness and Denies numbness Neuro Denies abnormal gait, Denies numbness and Denies weakness Endo Denies palpitations Physical Exam Vital Signs: Last Vital Signs Pulse 55 11/03/24 10:08 BP 110/54 L 11/03/24 10:08 BMI result Body Mass Index 32.2 Const General: comfortable and no acute distress Orientation/consciousness: patient oriented x3 HEENT Other: Unremarkable Head: Yes normal to inspection Neck Neck: Yes normal visual inspection Chest Chest palpation & inspection: normal inspection of the chest Resp Auscultation: clear to auscultation bilaterally Cardio Palpation: normal PMI Heart sounds: S1 normal heart sound present, S2 normal heart sound present, no gallops, no murmurs and no rubs GI Palpation (GI): Soft to palpation Back/Spine/Pelvis Other: unremarkable Skin General skin exam: no rashes or lesions noted Neuro General: patient oriented x3 Extrem General: Yes normal to inspection Psych Mental Status: mental status grossly normal Assessment & Plan Assessment & Plan (1) Persistent atrial fibrillation: Code(s): I48.19 - Other persistent atrial fibrillation Category: Medical Plan: Continue beta-blockers and anticoagulation. (2) Essential hypertension: Code(s): I10 - Essential (primary) hypertension Category: Medical Plan: Stable. (3) BRIAN on CPAP: Code(s): G47.33 - Obstructive sleep apnea (adult) (pediatric); Z99.89 - Dependence on other enabling machines and devices Category: Medical Plan: Continue CPAP. Plan Discussion Notes I discussed with the patient the importance of continuing routine cardiovascular follow-up and the need for an EKG in one year unless symptoms develop sooner. We also talked about the necessity of maintaining medication adherence, especially with blood thinners, and the patient was advised to contact the clinic if there are any issues with obtaining his medication. Patient was informed and verbally consented to the use of an ambient scribe for clinic note documentation during this visit. Patient Instructions: - Continue routine cardiovascular follow-up. - Schedule an EKG/pacer check in one year unless symptoms develop sooner. - Ensure medication adherence, especially with blood thinners. - Contact the clinic if there are any issues with obtaining medication. Coding Level of Care Code Est Pt Level 4 (07044) Diagnoses Persistent atrial fibrillation I48.19 Essential hypertension I10 BRIAN on CPAP G47.33; Z99.89
[2024-11-03 10:08] VITALS: BP 110/54; PULSE 55; BMI 32.2
== END 2024-11-03 10:48 | disposition home or self-care (01) ==
LOC: HO.HCS 09:55
PROVIDERS: Visit Provider Internal Medicine
DX: I48.19 Other persistent atrial fibrillation (principal); I10 Essential (primary) hypertension; G47.33 Obstructive sleep apnea (adult) (pediatric); Z99.89 Dependence on other enabling machines and devices
CPT/HCPCS: 99214

== ENCOUNTER → 2024-11-03 09:55 | Outpatient (BNVA) | payer OTHER, SELFPAY | PROVIDERS: Visit Provider Internal Medicine | DX: I10 Essential (primary) hypertension (principal); G47.33 Obstructive sleep apnea (adult) (pediatric); Z99.89 Dependence on other enabling machines and devices; I48.19 Other persistent atrial fibrillation | CPT/HCPCS: 99212 ==

== ENCOUNTER 2024-11-27 10:04 | Outpatient (AMB) | payer OTHER, SELFPAY ==
--- NOTE | 2024-11-27 10:17 | HO.NEPHOV_ITS ---
Vital Signs 11/27/24 10:23 Height 6 ft 2 in Weight 261 lb 8 oz BMI 33.6 BP 90/52 L Blood Pressure Location Lt brachial Position Sitting Pulse 71 Pulse Source Pulse Oximeter Pulse Oximetry (%) 95 Oxygen Delivery Method Room Air Intake Visit Reasons: FU-[facility] Evs Attendant Required: No Accompanied by: Spouse Allergies Cejsmcn-EJF-VkD Reductase Inhibitor (KZSPTGL-CUB-TJB REDUCTASE INHIBITOR) Adverse Reaction (Intermediate, Verified 11/27/24 10:23) LEG PAINS HPI Comments Details: Uriel is here for follow up for proteinuria. He has diabetes and hypertension. He is on Jardiance. He has a BMI of 33. He is known to have a pacemaker. He denies any carotid stenosis, CVA, peripheral arterial disease or renal artery stenosis. He is not known to have any renal dysfunction. He has not take any excessive nonsteroidal anti-inflammatories. He does not have any new bone or back pain. He denies any epistaxis, recurrent sinusitis, sore throat, photosensitivity, skin rashes, hematuria, renal calculi, sensorineural deafness, family history of ESRD or renal transplantation. He claims to be compliant with his medications. He states he feels well despite low blood pressure today. He denies dizziness, shortness of breath, fatigue, or other symptoms. He states he takes his me dications at nighttime. He is hydrating well. He states he does have some lower extremity edema but states it is looking better than usual. He is taking his diuretic medications daily. [facility] Medical History BRIAN on CPAP Normally functioning cardiac pacemaker present Type 2 diabetes mellitus with unspecified complications Essential hypertension Persistent atrial fibrillation Surgical History History of permanent cardiac pacemaker placement (~2006) Family History Father No problems noted. Mother No problems noted. Social History Alcohol intake: never Patient Tobacco Use Status: Never used Tobacco Review of Systems Const All systems reviewed & are unremarkable except as noted in HPI and below Physical Exam Vital Signs: Last Vital Signs Pulse 71 11/27/24 10:23 BP 90/52 L 11/27/24 10:23 Pulse Ox 95 11/27/24 10:23 Oxygen Delivery Method Room Air 11/27/24 10:23 BMI result Body Mass Index 33.6 Const General: comfortable and no acute distress Orientation/consciousness: patient oriented x3 Neck Neck: Yes supple Resp Auscultation: clear to auscultation bilaterally Cardio Jugular venous distension: no JVD Rate: regular rate GI Palpation (GI): Soft to palpation Auscultation: normal bowel sounds General: Yes no CVA tenderness Back/Spine/Pelvis Back: no CVA tenderness Skin General skin exam: no rashes or lesions noted Neuro General: patient oriented x3 and moves all extremities Extrem General: Yes edema (+1 BLE edema, pitting. ) Results Reviewed Nephrology Results: Sodium, (135-145) 141 mmol/L 10/24/24 Potassium, (3.3-5.1) 3.5 mmol/L 10/24/24 Chloride, (96-108) 106 mmol/L 10/24/24 Carbon Dioxide, (22-29) 25 mmol/L 10/24/24 BUN, (9-16) 11 mg/dL 10/24/24 Creatinine, (0.5-1.4) 0.87 mg/dL 10/24/24 Urine Creatinine 52.19 mg/dL 10/24/24 Protein/Creatinin Ratio, (<0.2) 0.84 H 10/24/24 Assessment & Plan Assessment & Plan (1) Essential hypertension: Code(s): I10 - Essential (primary) hypertension Category: Medical (2) Proteinuria: Code(s): R80.9 - Proteinuria, unspecified Category: Medical Qualifiers: Proteinuria type: other Qualified Code(s): R80.8 - Other proteinuria Plan 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 His urine protein creatinine ratio is mildly elevated at 0.84. Given LE edema, will not decrease his diuretic dose despite low blood pressures, as patient is asymptomatic today. Will start lisinopril 1.25mg daily at noontime with a meal (patient takes remainder of his medications at nighttime). If his urine protein is not improving, he may need a renal biopsy. He is on SGLT2 inhibitor which we should continue at the current dose. He should lose weight. He should avoid NSAIDs and minimize his salt intake. I answered all his questions. He will return in 4 weeks, labs prior. Orders: Orders Electrolytes 3 Weeks I10 - Essential (primary) hypertension, R80.8 - Other proteinuria Blood Urea Nitrogen 3 Weeks I10 - Essential (primary) hypertension, R80.8 - Other proteinuria Creatinine 3 Weeks I10 - Essential (primary) hypertension, R80.8 - Other proteinuria Medications: New lisinopril May take once daily at noontime with meal. 1.25 mg (1/2 x 2.5 mg) PO DAILY 15 tabs 0RF Coding Level of Care Code Est Pt Level 4 (87344) Diagnoses Essential hypertension I10 Other proteinuria R80.8 Proteinuria type: other
[2024-11-27 10:23] VITALS: BP 90/52; PULSE 71; O2SAT 95; BMI 33.6
== END 2024-11-27 10:39 | disposition home or self-care (01) ==
PROVIDERS: PCP Internal Medicine; Referring Provider Nurse Practitioner Family; Visit Provider Nurse Practitioner Family
DX: I10 Essential (primary) hypertension (principal); R80.8 Other proteinuria
CPT/HCPCS: 99214

== ENCOUNTER → 2024-11-27 10:04 | Outpatient (BNVA) | payer OTHER, SELFPAY | PROVIDERS: PCP Internal Medicine; Visit Provider Internal Medicine Nephrology | DX: I10 Essential (primary) hypertension (principal); R80.8 Other proteinuria; E11.9 Type 2 diabetes mellitus without complications | CPT/HCPCS: 99212 ==

== ENCOUNTER 2024-12-04 09:15 | Outpatient (AMB) | payer OTHER, SELFPAY ==
--- NOTE | 2024-12-04 09:43 | MHC.OFFVIS ---
Intake Visit Reasons: cysto Intake Note: Patient is present for a cystoscopy Urology Medication:TAMSULOSIN,ALLOPURINOL,VITAMIN B12 Antibiotic Allergy:NONE Blood Thinner:APIXABAN Customer Resource Specialist Required: No Allergies Wcjygdl-XKT-HpS Reductase Inhibitor (TNTJHLD-YCT-RWC REDUCTASE INHIBITOR) Adverse Reaction (Intermediate, Verified 12/04/24 09:43) LEG PAINS Medication List - Last Reconciled 12/04/24 by Camila Sellers MD allopurinol 300 mg PO DAILY apixaban (Eliquis) 5 mg PO BID cyanocobalamin (vitamin B-12) 1,000 mcg PO DAILY empagliflozin 25 mg PO DAILY finasteride 5 mg PO DAILY 90 days gabapentin 300 mg PO TID insulin glargine (Lantus Solostar U-100 Insulin) 6 units subcut QPM lidocaine 5% 1 patch topical DAILY PRN lisinopril 1.25 mg (1/2 x 2.5 mg) PO DAILY magnesium oxide 400 mg PO DAILY metformin 500 mg PO BID metoprolol succinate ER (Toprol XL) 50 mg PO DAILY nitrofurantoin monohyd/m-cryst 100 mg (Macrobid) 100 mg PO BID 7 days rosuvastatin 10 mg PO DAILY semaglutide 1 mg subcut QWEEK tamsulosin 0.4 mg PO BEDTIME 90 days triamterene-hydrochlorothiazid 37.5-25 mg 1 cap PO DAILY HPI Comments Details: 12/04/24--Daniel is a 79-year-old male who is status post renal biopsy and cryoablation 12/24/2022 pathology renal angiomyolipoma he has been note noted to have persistent microscopic hematuria and presented today for office cystoscopy. Office urinalysis is nitrite positive. We will hold on cystoscopy and treat with antibiotics urine culture will be sent along with cytology. We will get a bladder ultrasound and reschedule office cystoscopy. History of Present Illness The patient is a 79-year-old male presenting with persistent microscopic hematuria. He has a history of renal angiomyolipoma, for which he underwent a renal biopsy and cryoablation on December 24, 2022. Despite the procedure, he continues to experience microscopic hematuria, which prompted today's visit for an office cystoscopy. During the visit, a urinalysis revealed a nitrate-positive result, indicating a urinary tract infection. Consequently, the cystoscopy was postponed, and the patient was prescribed antibiotics. A urine culture and cytology were also ordered to further investigate the infection. The patient reports nocturia, which has reduced to 1 to 2 times per night. He has been advised to increase water intake and reduce consumption of iced tea and other juices. Results - Urinalysis: Nitrate positive - Urine culture and cytology ordered Plan 1. Microscopic Hematuria - Postpone cystoscopy due to urinary tract infection. - Prescribe antibiotics to treat the infection. - Order urine culture and cytology for further evaluation. 2. Urinary Tract Infection - Treat with antibiotics. - Monitor symptoms and follow up with urine culture results. 3.BPH- Cont tamsulosin 09/24/24--Daniel is a 79-year-old male who presents today to the office for a follow-up. He is status post renal biopsy and cryoablation, 12/24/2022, pathology renal angiomyolipoma. UA 1+ blood 1+ protein we will refer to nephrology follow-up office cystoscopy continue tamsulosin we will start finasteride 5 mg daily 03/26/24--Daniel is a 78-year-old male who presents today to the office for a follow-up. He is status post renal biopsy and cryoablation, 12/24/2022, pathology renal angiomyolipoma. As the renal biopsy indicated an angiomyolipoma, dedicated follow-up imaging is not indicated. He had been seen for elevated PSA and BPH symptoms and was started on tamsulosin. Follow-up PSA, 08/09/2023 is 3.13 ng/mL. He states that he fills medications at the [facility]. He states he goes frequently doing the day. Urinalysis 3+ glucose. Recommend continue tamsulosin 0.4 mg at bedtime. Follow-up in 6 months PSA prior. Review of chart: 08/21/23--Daniel is a 78-year-old male who presents today to the office for a follow-up. He is status post renal biopsy and cryoablation, 12/24/2022, pathology renal angiomyolipoma. He had been seen for elevated PSA and BPH symptoms and was started on tamsulosin. Follow-up PSA, 08/09/2023 is 3.13 ng/mL. The patient states that earlier this month he was seen in the emergency room for a low blood pressure and his blood pressure medications were adjusted. He was concerned about the tamsulosin contributing to the low blood pressure. He ran out of the prescription about 2 weeks ago and is waiting for it to be refilled by the [facility]. He states he has seen his PCP since the emergency room visit and they have all of his medications. Urinalysis is within normal limits bladder scan PVR 86 mL. Will have him follow-up in 6 months. 04/24/2023--Daniel was initially sent for evaluation due to right renal mass. 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 I have reviewed results of recent CT scan of 04/02/2023 the cryo ablated mass has no significant enhancement. As the renal biopsy indicated an angiomyolipoma, dedicated follow-up imaging is not indicated. The patient was started on tamsulosin for lower urinary tract symptoms secondary to BPH he states he did not get the medication. He states that he fills medications at the [facility]. 04/02/23--CTAP The cryoablated mass in the mid right kidney appears less well defined and measures about 1.3 x 1.5 cm in maximal transverse dimension. On the current study, this appears less well-defined but includes some inflammatory changes around it with thickening of the posterior pararenal fascia. There is no significant enhancement. 01/07/23: He states that he is getting up at 3-4 times at night to urinate. AUA score - 15. s/p renal bx and cryoablation on 12/24/22. renal biopsy done on 12/24/22 --revealed angiomyolipoma. Plan, Prescribed tamsulosin 0.4 mg daily. Printed script. Follow-up, PSA prior 11/09/22--CT of the abdomen with and without IV contrast results revealed a 1.3 cm partially solid partially cystic lesion exophytic to the posterior lateral lower pole of the right kidney. (Appearance is concerning for renal neoplasm). PSA results from 10/05/2022 revealed 3.43. [facility] Medical History BRIAN on CPAP Normally functioning cardiac pacemaker present Type 2 diabetes mellitus with unspecified complications Essential hypertension Persistent atrial fibrillation Surgical History History of permanent cardiac pacemaker placement (~2006) Family History Father No problems noted. Mother No problems noted. Social History Alcohol intake: never Patient Tobacco Use Status: Never used Tobacco Review of Systems Const All systems reviewed & are unremarkable except as noted in HPI and below Reports no additional complaints Eyes Reports no additional complaints ENT Reports no additional complaints Card Reports no additional complaints Resp Reports no additional complaints GI Reports no additional complaints Reports as per HPI Musc Reports no additional complaints Skin/Breast Reports system reviewed and no additional complaints, except as documented Neuro Reports no additional complaints Psych Reports no additional complaints Endo Reports no additional complaints Gael/Lymph Reports no additional complaints Aller/Immun Reports no additional complaints Results Reviewed Results Reviewed: Date of Service: 04/02/23 EXAMINATION: CT ABDOMEN WITHOUT AND WITH CONTRAST CLINICAL INFORMATION: Status post cryoablation of right lower pole renal neoplasm. COMPARISON: CT abdomen 11/07/2022, CT-guided renal ablation 10/24/2022. FINDINGS: LUNG BASES: Dual leads from a bipolar pacemaker are present. The left hemidiaphragm is elevated. Scarring and traction bronchiectasis is present at the lung bases. Calcified granuloma seen at the right lung base. There is a tiny 2 mm right lower lobe nodule (5:14). Findings are unchanged when compared to 11/09/2022. LIVER, GALLBLADDER, AND BILIARY TREE: The liver is normal in size, shape, and attenuation. No focal hepatic lesion or biliary ductal dilatation is present. The gallbladder is unremarkable with no evidence of radiopaque gallstones, gallbladder wall thickening, or obvious pericholecystic inflammatory changes. PANCREAS: Unremarkable. SPLEEN: Unremarkable. ADRENAL GLANDS: Unremarkable. KIDNEYS AND URETERS: Right Kidney: Again seen are 3 water density simple Bosniak class I cysts in the right kidney the largest measuring about 3 cm in size. These benign Bosniak class I cysts need no additional imaging or followup. In the mid right kidney posterolaterally at about 7 o'clock, there is the residua of the 1.4 cm cryoablated mass. On the current study, this appears less well defined and measures about 1.3 x 1.5 cm in maximal transverse dimension (5:117) but includes some inflammatory changes around it with thickening of the posterior pararenal fascia. There are 2 components of the mass. A medial lower attenuation area and a lateral higher attenuation area. On noncontrast images, these 2 areas measure -2 and 19 Hounsfield units and after IV contrast measure 4.9 and 21 Hounsfield units respectively. There is no significant enhancement. No nephrolithiasis. No hydronephrosis. Visualized portion of the right ureter is normal. Left Kidney: The left kidney and visualized ureter appear normal. GASTROINTESTINAL TRACT: The visualized bowel is unremarkable. ABDOMINAL WALL: No significant hernia is appreciated. LYMPH NODES: Normal. VASCULAR: Calcific atherosclerotic changes are present in the aorta and iliac vessels. There is no evidence of an abdominal aortic aneurysm. OSSEOUS STRUCTURES: Degenerative changes are present in the spine. IMPRESSION: 1. The cryoablated mass in the mid right kidney appears less well defined and measures about 1.3 x 1.5 cm in maximal transverse dimension. On the current study, this appears less well-defined but includes some inflammatory changes around it with thickening of the posterior pararenal fascia. There is no significant enhancement. 2. Other incidental findings as described above. Assessment & Plan Assessment & Plan (1) UTI (urinary tract infection): Code(s): N39.0 - Urinary tract infection, site not specified Category: Medical (2) Hematuria: Code(s): R31.9 - Hematuria, unspecified Category: Medical Plan Plan 1. Microscopic Hematuria - Postpone cystoscopy due to urinary tract infection. - Prescribe antibiotics to treat the infection. - Order urine culture and cytology for further evaluation. 2. Urinary Tract Infection - Treat with antibiotics. - Monitor symptoms and follow up with urine culture results. 3.BPH- Cont tamsulosin Orders: Orders US bladder Today N39.0 - Urinary tract infection, site not specified, R31.9 - Hematuria, unspecified Medications: New nitrofurantoin monohyd/m-cryst 100 mg (Macrobid) must administer with a meal/food 100 mg PO BID 14 caps 0RF 7 days N39.0 - Urinary tract infection, site not specified Patient Instructions: The patient had an opportunity to ask questions regarding treatment plan. The patient expressed understanding and agreement with the above treatment plan. The patient is aware they should contact our office by phone for worsening of their current condition or the appearance of new symptoms. Compliance is encouraged with any medications and followup testing that is ordered. It is a privilege to be allowed the opportunity to participate in the urologic care of your patient. If you have any questions or concerns regarding treatment for the above conditions please do not hesitate to contact me. The office telephone contact is [phone]. This note is constructed in part using voice recognition software. While every effort has been made to ensure accuracy dry charge process attendant errors may have been included. Yours sincerely, Camila Sellers MD Scribe Plan - Not visible on output: Patient was informed and verbally consented to the use of an ambient scribe for clinic note documentation during this visit. Coding Level of Care Code Est Pt Level 4 (22851) Complex EM visit Add On G2211 Diagnoses UTI (urinary tract infection) N39.0 Hematuria R31.9
== END 2024-12-04 10:23 | disposition home or self-care (01) ==
LOC: HO.HUSH 09:16
PROVIDERS: Visit Provider Urology
DX: N39.0 Urinary tract infection, site not specified (principal); R31.9 Hematuria, unspecified; Z13.9 Encounter for screening, unspecified
CPT/HCPCS: 99214; G2211

== ENCOUNTER 2024-12-04 09:15 | Outpatient (REF) | payer OTHER, SELFPAY | END 2024-12-04 09:16 | disposition home or self-care (01) | LOC: HO.LAB 09:15 | PROVIDERS: Visit Provider Urology | DX: R31.29 Other microscopic hematuria (principal); N40.0 Benign prostatic hyperplasia without lower urinary tract symptoms; N39.0 Urinary tract infection, site not specified | CPT/HCPCS: 81003; 87086; 87088; 87186; 88112; 99212 ==

== ENCOUNTER 2024-12-23 11:19 | Outpatient (AMB) | payer OTHER, SELFPAY ==
--- NOTE | 2024-12-23 11:24 | HO.NEPHOV ---
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 He has diabetes and hypertension. He is on Jardiance. He has a BMI of 33. He is known to have a pacemaker. He denies any carotid stenosis, CVA, peripheral arterial disease or renal artery stenosis. He is not known to have any renal dysfunction. He has not take any excessive nonsteroidal anti-inflammatories. He does not have any new bone or back pain. He denies any epistaxis, recurrent sinusitis, sore throat, photosensitivity, skin rashes, hematuria, renal calculi, sensorineural deafness, family history of ESRD or renal transplantation. He denies dizziness, shortness of breath, fatigue, or other symptoms. He states he takes his medications at nighttime. He is hydrating well. He states he does have some lower extremity edema but states it is looking better than usual. He is taking his diuretic medications daily. [facility] Medical History BRIAN on CPAP Normally functioning cardiac pacemaker present Type 2 diabetes mellitus with unspecified complications Essential hypertension Persistent atrial fibrillation Surgical History History of permanent cardiac pacemaker placement (~2006) Family History Father No problems noted. Mother No problems noted. Social History Alcohol intake: never Patient Tobacco Use Status: Never used Tobacco Review of Systems Const All systems reviewed & are unremarkable except as noted in HPI and below Physical Exam Vital Signs: Last Vital Signs Pulse 87 12/23/24 11:28 BP 130/64 12/23/24 11:28 Pulse Ox 98 12/23/24 11:28 Oxygen Delivery Method Room Air 12/23/24 11:28 BMI result Body Mass Index 33.4 Const General: comfortable and no acute distress Orientation/consciousness: patient oriented x3 HEENT Head: Yes normocephalic Mouth: Normal oral and palatal mucosa present Eyes EOM: EOMs intact bilaterally Neck Neck: Yes supple Resp Auscultation: clear to auscultation bilaterally Cardio Jugular venous distension: no JVD Rate: regular rate GI Palpation (GI): Soft to palpation Auscultation: normal bowel sounds General: Yes no CVA tenderness Back/Spine/Pelvis Back: no CVA tenderness Skin General skin exam: no rashes or lesions noted Neuro General: patient oriented x3 and moves all extremities Extrem General: Yes no pedal edema Results Reviewed Nephrology Results: Sodium, (135-145) 141 mmol/L 10/24/24 Potassium, (3.3-5.1) 3.5 mmol/L 10/24/24 Chloride, (96-108) 106 mmol/L 10/24/24 Carbon Dioxide, (22-29) 25 mmol/L 10/24/24 BUN, (9-16) 11 mg/dL 10/24/24 Creatinine, (0.5-1.4) 0.87 mg/dL 10/24/24 Urine Creatinine 52.19 mg/dL 10/24/24 Protein/Creatinin Ratio, (<0.2) 0.84 H 10/24/24 Assessment & Plan Assessment & Plan (1) Essential hypertension: Code(s): I10 - Essential (primary) hypertension Category: Medical (2) Proteinuria: Code(s): R80.9 - Proteinuria, unspecified Category: Medical Qualifiers: Proteinuria type: other Qualified Code(s): R80.8 - Other proteinuria Plan 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 His urine protein creatinine ratio is mildly elevated at 0.84. I increased his lisinopril 2.5mg daily.. If his urine protein is not improving, he may need a renal biopsy. He is on SGLT2 inhibitor & GLP 1 agonist which we should continue at the current dose. He should lose more weight. He should avoid NSAIDs and minimize his salt intake. I answered all his questions. Labs/FU 2 M( shall back off on diuretics when I go up on ACEI). Orders: Orders Protein Creatinine Ratio, Ur 2 Months I10 - Essential (primary) hypertension, R80.8 - Other proteinuria Electrolytes 2 Months I10 - Essential (primary) hypertension, R80.8 - Other proteinuria Creatinine 2 Months I10 - Essential (primary) hypertension, R80.8 - Other proteinuria Blood Urea Nitrogen 2 Months I10 - Essential (primary) hypertension, R80.8 - Other proteinuria Medications: Changed From lisinopril May take once daily at noontime with meal. 1.25 mg (1/2 x 2.5 mg) PO DAILY 15 tabs 0RF To lisinopril 2.5 mg PO DAILY 90 tabs 3RF Refilled lisinopril 2.5 mg PO DAILY 90 tabs 3RF Coding Level of Care Code Est Pt Level 4 (05424) Diagnoses Essential hypertension I10 Other proteinuria R80.8 Proteinuria type: other
[2024-12-23 11:28] VITALS: BP 130/64; PULSE 87; O2SAT 98; BMI 33.4
== END 2024-12-23 11:56 | disposition home or self-care (01) ==
LOC: HO.HKA 11:20
PROVIDERS: PCP Internal Medicine; Visit Provider Internal Medicine Nephrology
DX: I10 Essential (primary) hypertension (principal); R80.8 Other proteinuria
CPT/HCPCS: 99214

== ENCOUNTER → 2024-12-23 11:19 | Outpatient (BNVA) | payer OTHER, SELFPAY | PROVIDERS: PCP Internal Medicine; Visit Provider Internal Medicine Nephrology | DX: I10 Essential (primary) hypertension (principal); R80.8 Other proteinuria | CPT/HCPCS: 99212 ==

== ENCOUNTER → 2025-01-04 23:59 | Outpatient (BNV) | payer OTHER, SELFPAY ==
--- NOTE | 2025-01-07 14:22 | A.OFFVIS_ITS ---
Intake Visit Reasons: Remote device check- [employer] Allergies Hpaepkd-UOP-RpQ Reductase Inhibitor (KQRHLRB-OVL-USX REDUCTASE INHIBITOR) Adverse Reaction (Intermediate, Verified 12/23/24 11:28) LEG PAINS PFSH Medical History BRIAN on CPAP Normally functioning cardiac pacemaker present Type 2 diabetes mellitus with unspecified complications Essential hypertension Persistent atrial fibrillation Surgical History History of permanent cardiac pacemaker placement (~2006) Family History Father No problems noted. Mother No problems noted. 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 Overall normal device function. [id number] Cardiac Device Interrogation, pacemaker Procedure code (CPT) selection complete Assessment & Plan Assessment & Plan (1) Normally functioning cardiac pacemaker present: Code(s): Z95.0 - Presence of cardiac pacemaker Category: Medical (2) Persistent atrial fibrillation: Code(s): I48.19 - Other persistent atrial fibrillation Category: Medical Plan x Coding Level of Care Code Procedure Only Diagnoses Normally functioning cardiac pacemaker present Z95.0 Persistent atrial fibrillation I48.19 CPT Codes Cardiac Device Check - Cardiac Device 12: [id number] Cardiac Device Interrogation, pacemaker ([id number])
== END ==
PROVIDERS: PCP Internal Medicine; Visit Provider Internal Medicine
DX: I48.19 Other persistent atrial fibrillation (principal); Z95.0 Presence of cardiac pacemaker
CPT/HCPCS: 93294

== ENCOUNTER 2025-02-01 11:16 | Outpatient (REF) | payer OTHER, SELFPAY ==
--- NOTE | ~2025-02-01 | US_ITS ---
CLINICAL HISTORY: N39.0 - Urinary tract infection, site not specified US Urinary Bladder Comparison: None Findings: The urinary bladder is unremarkable. Prevoid volume: 178.3 mL Postvoid volume: 25.6 mL Trabeculated urinary bladder wall. Enlarged prostate measuring 6.0 x 5.5 x 5.4 cm corresponds to a volume of 91.3 mL. Ureteral jets are not visualized bilaterally. IMPRESSION: Trabeculated urinary bladder with postvoid residual volume within normal limits. Moderate prostatomegaly. This document has been electronically signed by: Ct Yancey MD on 02/01/2025 23:06:31
== END 2025-02-01 11:17 | disposition home or self-care (01) ==
LOC: HO.US 11:16
PROVIDERS: PCP Internal Medicine; Visit Provider Urology
DX: R31.9 Hematuria, unspecified (principal); N39.0 Urinary tract infection, site not specified
CPT/HCPCS: 76857

== ENCOUNTER → 2025-02-01 11:18 | Outpatient (BNV) | payer OTHER, SELFPAY | PROVIDERS: PCP Internal Medicine; Visit Provider Student in an Organized Health Care Education/Training Program | DX: N40.1 Benign prostatic hyperplasia with lower urinary tract symptoms (principal) | CPT/HCPCS: 76857 ==

== ENCOUNTER 2025-02-12 10:17 | Outpatient (REF) | payer OTHER, SELFPAY | END 2025-02-12 10:18 | disposition home or self-care (01) | LOC: HO.LAB 10:17 | PROVIDERS: Visit Provider Urology | DX: R31.9 Hematuria, unspecified (principal); N39.0 Urinary tract infection, site not specified; Z13.89 Encounter for screening for other disorder | CPT/HCPCS: 81003; 87086; 88112 ==

== ENCOUNTER 2025-02-12 10:17 | Outpatient (AMB) | payer OTHER, SELFPAY ==
--- NOTE | 2025-02-12 11:47 | A.OFFVIS_ITS ---
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 Office urinalysis is nitrite positive. We will hold on cystoscopy and treat with antibiotics urine culture will be sent along with cytology. We will get a bladder ultrasound and reschedule office cystoscopy. History of Present Illness The patient is a 79-year-old male presenting with persistent microscopic hematuria. He has a history of renal angiomyolipoma, for which he underwent a renal biopsy and cryoablation on December 24, 2022. Despite the procedure, he continues to experience microscopic hematuria, which prompted today's visit for an office cystoscopy. During the visit, a urinalysis revealed a nitrate-positive result, indicating a urinary tract infection. Consequently, the cystoscopy was postponed, and the patient was prescribed antibiotics. A urine culture and cytology were also ordered to further investigate the infection. The patient reports nocturia, which has reduced to 1 to 2 times per night. He has been advised to increase water intake and reduce consumption of iced tea and other juices. Results - Urinalysis: Nitrate positive - Urine culture and cytology ordered Plan 1. Microscopic Hematuria - Postpone cystoscopy due to urinary tract infection. - Prescribe antibiotics to treat the infection. - Order urine culture and cytology for further evaluation. 2. Urinary Tract Infection - Treat with antibiotics. - Monitor symptoms and follow up with urine culture results. 3.BPH- Cont tamsulosin 09/24/24--Daniel is a 79-year-old male who presents today to the office for a follow-up. He is status post renal biopsy and cryoablation, 12/24/2022, pathology renal angiomyolipoma. UA 1+ blood 1+ protein we will refer to nephrology follow-up office cystoscopy continue tamsulosin we will start finasteride 5 mg daily 03/26/24--Daniel is a 78-year-old male who presents today to the office for a follow-up. He is status post renal biopsy and cryoablation, 12/24/2022, pathology renal angiomyolipoma. As the renal biopsy indicated an angiomyolipoma, dedicated follow-up imaging is not indicated. He had been seen for elevated PSA and BPH symptoms and was started on tamsulosin. Follow-up PSA, 08/09/2023 is 3.13 ng/mL. He states that he fills medications at the [place] pharmacy. He states he goes frequently doing the day. Urinalysis 3+ glucose. Recommend continue tamsulosin 0.4 mg at bedtime. Follow-up in 6 months PSA prior. Review of chart: 08/21/23--Daniel is a 78-year-old male who presents today to the office for a follow-up. He is status post renal biopsy and cryoablation, 12/24/2022, pathology renal angiomyolipoma. He had been seen for elevated PSA and BPH symptoms and was started on tamsulosin. Follow-up PSA, 08/09/2023 is 3.13 ng/mL. The patient states that earlier this month he was seen in the emergency room for a low blood pressure and his blood pressure medications were adjusted. He was concerned about the tamsulosin contributing to the low blood pressure. He ran out of the prescription about 2 weeks ago and is waiting for it to be refilled by the [facility]. He states he has seen his PCP since the emergency room visit and they have all of his medications. Urinalysis is within normal limits bladder scan PVR 86 mL. Will have him follow-up in 6 months. 04/24/2023--Daniel was initially sent for evaluation due to right renal mass. 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 I have reviewed results of recent CT scan of 04/02/2023 the cryo ablated mass has no significant enhancement. As the renal biopsy indicated an angiomyolipoma, dedicated follow-up imaging is not indicated. The patient was started on tamsulosin for lower urinary tract symptoms secondary to BPH he states he did not get the medication. He states that [facility]. 04/02/23--CTAP The cryoablated mass in the mid right kidney appears less well defined and measures about 1.3 x 1.5 cm in maximal transverse dimension. On the current study, this appears less well-defined but includes some inflammatory changes around it with thickening of the posterior pararenal fascia. There is no significant enhancement. 01/07/23: He states that he is getting up at 3-4 times at night to urinate. AUA score - 15. s/p renal bx and cryoablation on 12/24/22. renal biopsy done on 12/24/22 --revealed angiomyolipoma. Plan, Prescribed tamsulosin 0.4 mg daily. Printed script. Follow-up, PSA prior 11/09/22--CT of the abdomen with and without IV contrast results revealed a 1.3 cm partially solid partially cystic lesion exophytic to the posterior lateral lower pole of the right kidney. (Appearance is concerning for renal neoplasm). PSA results from 10/05/2022 revealed 3.43. [facility] Medical History BRIAN on CPAP Normally functioning cardiac pacemaker present Type 2 diabetes mellitus with unspecified complications Essential hypertension Persistent atrial fibrillation Surgical History History of permanent cardiac pacemaker placement (~2006) Family History Father No problems noted. Mother No problems noted. Social History Alcohol intake: never Patient Tobacco Use Status: Never used Tobacco Results AMB Urinalysis, Automated UA Leukoctes 0 Eliz/uL Last Edit by Nataliya Browne on 02/12/25 15:27 UA Nitrite Negative Last Edit by Nataliya Browne on 02/12/25 15:27 UA Urobilinogen 1 mg/dL Last Edit by Nataliya Browne on 02/12/25 15:27 UA Protein 15 mg/dL Last Edit by Nataliya Browne on 02/12/25 15:27 UA pH 6.5 Last Edit by Nataliya Browne on 02/12/25 15:27 UA Blood 200 Myke/uL Last Edit by Nataliya Browne on 02/12/25 15:27 UA Specific [place] 1.010 Last Edit by Nataliya Browne on 02/12/25 15:27 UA Ketone Negative Last Edit by Nataliya Browne on 02/12/25 15:27 UA Bilirubin 0 mg/dL Last Edit by Nataliya Browne on 02/12/25 15:27 UA Glucose 1000 mg/dL Last Edit by Nataliya Browne on 02/12/25 15:27 Assessment & Plan Assessment & Plan Orders: Orders AMB Urinalysis Automated Today Z13.9 - Encounter for screening, unspecified Coding
== END 2025-02-12 12:16 | disposition home or self-care (01) ==
LOC: HO.HUSH 10:18
PROVIDERS: Visit Provider Urology
DX: Z13.9 Encounter for screening, unspecified (principal)

== ENCOUNTER 2025-02-22 11:39 | Outpatient (AMB) | payer OTHER, SELFPAY ==
--- NOTE | 2025-02-22 11:39 | MHC.OFFVIS ---
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 Urine culture was no growth and urine cytology negative for malignant cells. Bladder ultrasound on 02/01/2025 trabeculated bladder enlarged prostate postvoid residual 25.6 mL History of Present Illness The patient is a 79 year old individual presenting for a telehealth follow-up visit after a prior visit on 02/12/25. A bladder ultrasound performed on 02/01/25 showed a trabeculated bladder, an enlarged prostate, and a post-void residual of 25.6 mL. The ultrasound also noted a thickened bladder muscle wall with no bladder stones. During the patient's 02/12/25 visit, urine was sent for culture and cytology. The urine culture resulted in no growth, and the urine cytology was negative for malignant cells. The patient's PSA level is stable. Results - Labs - Urine Culture (02/12/25): No growth. - Urine Cytology (02/12/25): Negative for malignant cells. - PSA: Stable. - Tests and Diagnostics - Bladder Ultrasound (02/01/25): Findings include a trabeculated bladder, enlarged prostate, thickened bladder muscle wall, and a post-void residual of 25.6 mL. - No bladder stones were identified on the ultrasound. Plan 1. Enlarged Prostate - The patient's PSA is stable and the patient is emptying the bladder well with a post-void residual of 25.6 mL. - The plan is to continue monitoring. 2. Hematuria. Hold on office cystoscopy. Routine follow-up is scheduled in four months. 3. Trabeculated Bladder - Bladder ultrasound showed a thickened bladder muscle wall, consistent with trabeculation, but no stones. - Will continue to monitor, cont proscar. 02/12/25--Daniel is a 79-year-old male who is status post renal biopsy and cryoablation 12/24/2022 pathology renal angiomyolipoma he has been note noted to have persistent microscopic hematuria. LV 12/04/24-office cystoscopy deferred due to UTI. Discussed Bladder US results- bladder trabeculated, prostate enlarged. Patient reluctant to have cystoscopy. Pt on eliquis. Will continue to monitor, cont proscar. 12/04/24--Daniel is a 79-year-old male who is status post renal biopsy and cryoablation 12/24/2022 pathology renal angiomyolipoma he has been note noted to have persistent microscopic hematuria and presented today for office cystoscopy. Office urinalysis is nitrite positive. We will hold on cystoscopy and treat with antibiotics urine culture will be sent along with cytology. We will get a bladder ultrasound and reschedule office cystoscopy. History of Present Illness The patient is a 79-year-old male presenting with persistent microscopic hematuria. He has a history of renal angiomyolipoma, for which he underwent a renal biopsy and cryoablation on December 24, 2022. Despite the procedure, he continues to experience microscopic hematuria, which prompted today's visit for an office cystoscopy. During the visit, a urinalysis revealed a nitrate-positive result, indicating a urinary tract infection. Consequently, the cystoscopy was postponed, and the patient was prescribed antibiotics. A urine culture and cytology were also ordered to further investigate the infection. The patient reports nocturia, which has reduced to 1 to 2 times per night. He has been advised to increase water intake and reduce consumption of iced tea and other juices. Results - Urinalysis: Nitrate positive - Urine culture and cytology ordered Plan 1. Microscopic Hematuria - Postpone cystoscopy due to urinary tract infection. - Prescribe antibiotics to treat the infection. - Order urine culture and cytology for further evaluation. 2. Urinary Tract Infection - Treat with antibiotics. - Monitor symptoms and follow up with urine culture results. 3.BPH- Cont tamsulosin 09/24/24--Daniel is a 79-year-old male who presents today to the office for a follow-up. He is status post renal biopsy and cryoablation, 12/24/2022, pathology renal angiomyolipoma. UA 1+ blood 1+ protein we will refer to nephrology follow-up office cystoscopy continue tamsulosin we will start finasteride 5 mg daily 03/26/24--Daniel is a 78-year-old male who presents today to the office for a follow-up. He is status post renal biopsy and cryoablation, 12/24/2022, pathology renal angiomyolipoma. As the renal biopsy indicated an angiomyolipoma, dedicated follow-up imaging is not indicated. He had been seen for elevated PSA and BPH symptoms and was started on tamsulosin. Follow-up PSA, 08/09/2023 is 3.13 ng/mL. He states that he fills medications at the [place] pharmacy. He states he goes frequently doing the day. Urinalysis 3+ glucose. Recommend continue tamsulosin 0.4 mg at bedtime. Follow-up in 6 months PSA prior. Review of chart: 08/21/23--Daniel is a 78-year-old male who presents today to the office for a follow-up. He is status post renal biopsy and cryoablation, 12/24/2022, pathology renal angiomyolipoma. He had been seen for elevated PSA and BPH symptoms and was started on tamsulosin. Follow-up PSA, 08/09/2023 is 3.13 ng/mL. The patient states that earlier this month he was seen in the emergency room for a low blood pressure and his blood pressure medications were adjusted. He was concerned about the tamsulosin contributing to the low blood pressure. He ran out of the prescription about 2 weeks ago and is waiting for it to be refilled by the [facility]. He states he has seen his PCP since the emergency room visit and they have all of his medications. Urinalysis is within normal limits bladder scan PVR 86 mL. Will have him follow-up in 6 months. 04/24/2023--Daniel was initially sent for evaluation due to right renal mass. 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 I have reviewed results of recent CT scan of 04/02/2023 the cryo ablated mass has no significant enhancement. As the renal biopsy indicated an angiomyolipoma, dedicated follow-up imaging is not indicated. The patient was started on tamsulosin for lower urinary tract symptoms secondary to BPH he states he did not get the medication. He states that he fills medications at the [place] pharmacy. 04/02/23--CTAP The cryoablated mass in the mid right kidney appears less well defined and measures about 1.3 x 1.5 cm in maximal transverse dimension. On the current study, this appears less well-defined but includes some inflammatory changes around it with thickening of the posterior pararenal fascia. There is no significant enhancement. 01/07/23: He states that he is getting up at 3-4 times at night to urinate. AUA score - 15. s/p renal bx and cryoablation on 12/24/22. renal biopsy done on 12/24/22 --revealed angiomyolipoma. Plan, Prescribed tamsulosin 0.4 mg daily. Printed script. Follow-up, PSA prior 11/09/22--CT of the abdomen with and without IV contrast results revealed a 1.3 cm partially solid partially cystic lesion exophytic to the posterior lateral lower pole of the right kidney. (Appearance is concerning for renal neoplasm). PSA results from 10/05/2022 revealed 3.43. [facility] Medical History BRIAN on CPAP Normally functioning cardiac pacemaker present Type 2 diabetes mellitus with unspecified complications Essential hypertension Persistent atrial fibrillation Surgical History History of permanent cardiac pacemaker placement (~2006) Family History Father No problems noted. Mother No problems noted. Social History Alcohol intake: never Patient Tobacco Use Status: Never used Tobacco Review of Systems Const All systems reviewed & are unremarkable except as noted in HPI and below Reports no additional complaints Eyes Reports no additional complaints ENT Reports no additional complaints Card Reports no additional complaints Resp Reports no additional complaints GI Reports no additional complaints Reports as per HPI Musc Reports no additional complaints Skin/Breast Reports system reviewed and no additional complaints, except as documented Neuro Reports no additional complaints Psych Reports no additional complaints Endo Reports no additional complaints Gael/Lymph Reports no additional complaints Aller/Immun Reports no additional complaints Telehealth Telehealth Telehealth Platform: Telephone Location of provider rendering services: practice address Location of patient: address on file Patient Identification confirmed using: Name, : Yes Telehealth method: voice only Patient verbally consented to treatment: Yes Patient verbally consented to billing insurance company: Yes Patient informed of any privacy concerns related to visit: Yes Minutes spent on Phone/Video with Pt.: 14 Results Reviewed Results Reviewed: Date of Service: 02/01/25 CLINICAL HISTORY: N39.0 - Urinary tract infection, site not specified US Urinary Bladder Comparison: None Findings: The urinary bladder is unremarkable. Prevoid volume: 178.3 mL Postvoid volume: 25.6 mL Trabeculated urinary bladder wall. Enlarged prostate measuring 6.0 x 5.5 x 5.4 cm corresponds to a volume of 91.3 mL. Ureteral jets are not visualized bilaterally. IMPRESSION: Trabeculated urinary bladder with postvoid residual volume within normal limits. Moderate prostatomegaly. Date of Service: 04/02/23 EXAMINATION: CT ABDOMEN WITHOUT AND WITH CONTRAST CLINICAL INFORMATION: Status post cryoablation of right lower pole renal neoplasm. COMPARISON: CT abdomen 11/07/2022, CT-guided renal ablation 10/24/2022. FINDINGS: LUNG BASES: Dual leads from a bipolar pacemaker are present. The left hemidiaphragm is elevated. Scarring and traction bronchiectasis is present at the lung bases. Calcified granuloma seen at the right lung base. There is a tiny 2 mm right lower lobe nodule (5:14). Findings are unchanged when compared to 11/09/2022. LIVER, GALLBLADDER, AND BILIARY TREE: The liver is normal in size, shape, and attenuation. No focal hepatic lesion or biliary ductal dilatation is present. The gallbladder is unremarkable with no evidence of radiopaque gallstones, gallbladder wall thickening, or obvious pericholecystic inflammatory changes. PANCREAS: Unremarkable. SPLEEN: Unremarkable. ADRENAL GLANDS: Unremarkable. KIDNEYS AND URETERS: Right Kidney: Again seen are 3 water density simple Bosniak class I cysts in the right kidney the largest measuring about 3 cm in size. These benign Bosniak class I cysts need no additional imaging or followup. In the mid right kidney posterolaterally at about 7 o'clock, there is the residua of the 1.4 cm cryoablated mass. On the current study, this appears less well defined and measures about 1.3 x 1.5 cm in maximal transverse dimension (5:117) but includes some inflammatory changes around it with thickening of the posterior pararenal fascia. There are 2 components of the mass. A medial lower attenuation area and a lateral higher attenuation area. On noncontrast images, these 2 areas measure -2 and 19 Hounsfield units and after IV contrast measure 4.9 and 21 Hounsfield units respectively. There is no significant enhancement. No nephrolithiasis. No hydronephrosis. Visualized portion of the right ureter is normal. Left Kidney: The left kidney and visualized ureter appear normal. GASTROINTESTINAL TRACT: The visualized bowel is unremarkable. ABDOMINAL WALL: No significant hernia is appreciated. LYMPH NODES: Normal. VASCULAR: Calcific atherosclerotic changes are present in the aorta and iliac vessels. There is no evidence of an abdominal aortic aneurysm. OSSEOUS STRUCTURES: Degenerative changes are present in the spine. IMPRESSION: 1. The cryoablated mass in the mid right kidney appears less well defined and measures about 1.3 x 1.5 cm in maximal transverse dimension. On the current study, this appears less well-defined but includes some inflammatory changes around it with thickening of the posterior pararenal fascia. There is no significant enhancement. 2. Other incidental findings as described above. Assessment & Plan Assessment & Plan (1) Renal mass: Code(s): N28.89 - Other specified disorders of kidney and ureter Category: Medical (2) BPH loc w urin obs/LUTS: Code(s): N40.1 - Benign prostatic hyperplasia with lower urinary tract symptoms Category: Medical (3) Hematuria: Code(s): R31.9 - Hematuria, unspecified Category: Medical (4) Bladder wall thickening: Code(s): N32.89 - Other specified disorders of bladder Category: Medical (5) Elevated PSA: Code(s): R97.20 - Elevated prostate specific antigen [PSA] Category: Medical Plan Plan 1. Enlarged Prostate - The patient's PSA is stable and the patient is emptying the bladder well with a post-void residual of 25.6 mL. - The plan is to continue monitoring. 2. Hematuria. Hold on office cystoscopy. Routine follow-up is scheduled in four months. 3. Trabeculated Bladder - Bladder ultrasound showed a thickened bladder muscle wall, consistent with trabeculation, but no stones. - Will continue to monitor, cont proscar. Patient Instructions: The patient had an opportunity to ask questions regarding treatment plan. The patient expressed understanding and agreement with the above treatment plan. The patient is aware they should contact our office by phone for worsening of their current condition or the appearance of new symptoms. Compliance is encouraged with any medications and followup testing that is ordered. It is a privilege to be allowed the opportunity to participate in the urologic care of your patient. If you have any questions or concerns regarding treatment for the above conditions please do not hesitate to contact me. The office telephone contact is [phone]. This note is constructed in part using voice recognition software. While every effort has been made to ensure accuracy barber or beauty shop manager errors may have been included. Yours sincerely, Camila Sellers MD Scribe Plan - Not visible on output: Patient was informed and verbally consented to the use of an ambient scribe for clinic note documentation during this visit. Coding Level of Care Code Tele Est Pt Level 3 (29378) Add On Problem Visit Only Diagnoses Renal mass N28.89 BPH loc w urin obs/LUTS N40.1 Hematuria R31.9 Bladder wall thickening N32.89 Elevated PSA R97.20
== END 2025-02-22 12:09 | disposition home or self-care (01) ==
LOC: HO.HUSH 11:39
PROVIDERS: Visit Provider Urology
DX: N28.89 Other specified disorders of kidney and ureter (principal); N40.1 Benign prostatic hyperplasia with lower urinary tract symptoms; R31.9 Hematuria, unspecified; N32.89 Other specified disorders of bladder; R97.20 Elevated prostate specific antigen [PSA]
CPT/HCPCS: 98013

== ENCOUNTER 2025-03-05 13:37 | Outpatient (AMB) | payer OTHER, SELFPAY ==
--- NOTE | 2025-03-05 14:02 | HO.NEPHOV ---
Vital Signs 03/05/25 14:12 Height 6 ft 2 in Weight 270 lb 4 oz BMI 34.7 BP 120/80 Blood Pressure Location Rt brachial Position Sitting Pulse 79 Pulse Source Pulse Oximeter Pulse Oximetry (%) 97 Oxygen Delivery Method Room Air Intake Visit Reasons: 2 MO F/U W/ LABS-Conf Dial Printer Required: No Accompanied by: Spouse Allergies Mjdibba-HCV-FxR Reductase Inhibitor ([id number] REDUCTASE INHIBITOR) Adverse Reaction (Intermediate, Verified 03/05/25 14:12) LEG PAINS HPI Comments Details: Uriel is here for follow up for proteinuria. He has diabetes and hypertension. He is on Jardiance. He has a BMI of 33. He is known to have a pacemaker. He denies any carotid stenosis, CVA, peripheral arterial disease or renal artery stenosis. He is not known to have any renal dysfunction. He has not take any excessive nonsteroidal anti-inflammatories. He does not have any new bone or back pain. He denies any epistaxis, recurrent sinusitis, sore throat, photosensitivity, skin rashes, hematuria, renal calculi, sensorineural deafness, family history of ESRD or renal transplantation. He denies dizziness, shortness of breath, fatigue, or other symptoms. He states he takes his medications at nighttime. He is hydrating well. He has lower extremity edema with SOBE.( He forgot to take diuretics for some time) [facility] Medical History BRIAN on CPAP Normally functioning cardiac pacemaker present Type 2 diabetes mellitus with unspecified complications Essential hypertension Persistent atrial fibrillation Surgical History History of permanent cardiac pacemaker placement (~2006) Family History Father No problems noted. Mother No problems noted. Social History Alcohol intake: never Patient Tobacco Use Status: Never used Tobacco Review of Systems Const All systems reviewed & are unremarkable except as noted in HPI and below Physical Exam Const General: comfortable and no acute distress Orientation/consciousness: patient oriented x3 HEENT Head: Yes normocephalic Mouth: Normal oral and palatal mucosa present Eyes EOM: EOMs intact bilaterally Neck Neck: Yes supple Resp Auscultation: clear to auscultation bilaterally Cardio Jugular venous distension: no JVD Rate: regular rate Heart sounds: Murmur heart sound present GI Palpation (GI): Soft to palpation Auscultation: normal bowel sounds General: Yes no CVA tenderness Back/Spine/Pelvis Back: no CVA tenderness Skin General skin exam: no rashes or lesions noted Neuro General: patient oriented x3 and moves all extremities Extrem General: Yes no pedal edema Assessment & Plan Assessment & Plan (1) Proteinuria: Code(s): R80.9 - Proteinuria, unspecified Category: Medical Qualifiers: Proteinuria type: other Qualified Code(s): R80.8 - Other proteinuria (2) Renal angiomyolipoma: Code(s): D17.71 - Benign lipomatous neoplasm of kidney Category: Medical (3) Essential hypertension: Code(s): I10 - Essential (primary) hypertension Category: Medical Plan 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 His urine protein creatinine ratio is mildly elevated at 0.84. He can continue lisinopril 2.5mg daily. If his urine protein is not improving, he may need a renal biopsy. He is on SGLT2 inhibitor & GLP 1 agonist which we should continue at the current dose. He should lose more weight. He should avoid NSAIDs and minimize his salt intake. He should take his diuretics( may need switch to lasix).I answered all his questions. Labs/FU 2 M( shall back off on diuretics when I go up on ACEI). Coding Level of Care Code Est Pt Level 4 (51308) Diagnoses Other proteinuria R80.8 Proteinuria type: other Renal angiomyolipoma D17.71 Essential hypertension I10
[2025-03-05 14:12] VITALS: BP 120/80; PULSE 79; O2SAT 97; BMI 34.7
== END 2025-03-05 14:28 | disposition home or self-care (01) ==
LOC: HO.HKA 13:37
PROVIDERS: PCP Internal Medicine; Referring Provider Internal Medicine Nephrology; Visit Provider Internal Medicine Nephrology
DX: R80.8 Other proteinuria (principal); D17.71 Benign lipomatous neoplasm of kidney; I10 Essential (primary) hypertension
CPT/HCPCS: 99214

== ENCOUNTER → 2025-03-05 13:37 | Outpatient (BNVA) | payer OTHER, SELFPAY | PROVIDERS: PCP Internal Medicine; Visit Provider Internal Medicine Nephrology | DX: D17.71 Benign lipomatous neoplasm of kidney (principal); R80.8 Other proteinuria; I10 Essential (primary) hypertension; E11.9 Type 2 diabetes mellitus without complications; Z79.899 Other long term (current) drug therapy | CPT/HCPCS: 99212 ==

== ENCOUNTER 2025-03-19 11:22 | Outpatient (AMB) | payer OTHER, SELFPAY ==
[2025-03-19 12:12] VITALS: BP 100/68; PULSE 85; O2SAT 95; BMI 31.2
--- NOTE | 2025-03-19 12:12 | HO.NEPHOV_ITS ---
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 He has diabetes and hypertension. He is on Jardiance. He has a BMI of 31. He is known to have a pacemaker. He denies any carotid stenosis, CVA, peripheral arterial disease or renal artery stenosis. He is not known to have any renal dysfunction. He has not take any excessive nonsteroidal anti-inflammatories. He does not have any new bone or back pain. He denies any epistaxis, recurrent sinusitis, sore throat, photosensitivity, skin rashes, hematuria, renal calculi, sensorineural deafness, family history of ESRD or renal transplantation. He denies dizziness, shortness of breath, fatigue, or other symptoms. He states he takes his medications at nighttime. He is hydrating well. He had lower extremity edema with SOBE which has resolved PFSH Medical History BRIAN on CPAP Normally functioning cardiac pacemaker present Type 2 diabetes mellitus with unspecified complications Essential hypertension Persistent atrial fibrillation Surgical History History of permanent cardiac pacemaker placement (~2006) Family History Father No problems noted. Mother No problems noted. Social History Alcohol intake: never Patient Tobacco Use Status: Never used Tobacco Review of Systems Const All systems reviewed & are unremarkable except as noted in HPI and below Physical Exam Vital Signs: Last Vital Signs Pulse 85 03/19/25 12:12 BP 100/68 03/19/25 12:12 Pulse Ox 95 12/26/25 12:12 Oxygen Delivery Method Room Air 12/26/25 12:12 BMI result Body Mass Index 31.2 Const General: comfortable and no acute distress Orientation/consciousness: patient oriented x3 HEENT Head: Yes normocephalic Mouth: Normal oral and palatal mucosa present Eyes EOM: EOMs intact bilaterally Neck Neck: Yes supple Resp Auscultation: clear to auscultation bilaterally Cardio Jugular venous distension: no JVD Rate: regular rate GI Palpation (GI): Soft to palpation Auscultation: normal bowel sounds General: Yes no CVA tenderness Back/Spine/Pelvis Back: no CVA tenderness Skin General skin exam: no rashes or lesions noted Neuro General: patient oriented x3 and moves all extremities Extrem General: Yes no pedal edema Assessment & Plan Assessment & Plan (1) Essential hypertension: Code(s): I10 - Essential (primary) hypertension Category: Medical (2) Proteinuria: Code(s): R80.9 - Proteinuria, unspecified Category: Medical Qualifiers: Proteinuria type: other Qualified Code(s): R80.8 - Other proteinuria Plan 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 His urine protein creatinine ratio is mildly elevated . He can continue lisinopril 2.5mg daily which I plan to go up with time. If his urine protein is not improving, he may need a renal biopsy. He is on SGLT2 inhibitor & GLP 1 agonist which we should continue at the current dose. He should lose more weight. He should avoid NSAIDs and minimize his salt intake. He should take his diuretics( may need switch to lasix).I answered all his questions. Labs/FU 3 M( shall back off on diuretics when I go up on ACEI). Orders: Orders Protein Creatinine Ratio, Ur 3 Months I10 - Essential (primary) hypertension, R80.8 - Other proteinuria Creatinine 3 Months I10 - Essential (primary) hypertension, R80.8 - Other proteinuria Blood Urea Nitrogen 3 Months I10 - Essential (primary) hypertension, R80.8 - Other proteinuria Electrolytes 3 Months I10 - Essential (primary) hypertension, R80.8 - Other proteinuria Coding Level of Care Code Est Pt Level 4 (74947) Diagnoses Essential hypertension I10 Other proteinuria R80.8 Proteinuria type: other
== END 2025-03-19 12:33 | disposition home or self-care (01) ==
LOC: HO.HKA 11:23
PROVIDERS: PCP Internal Medicine; Referring Provider Internal Medicine Nephrology; Visit Provider Internal Medicine Nephrology
DX: I10 Essential (primary) hypertension (principal); R80.8 Other proteinuria
CPT/HCPCS: 99214

== ENCOUNTER → 2025-03-19 11:22 | Outpatient (BNVA) | payer OTHER, SELFPAY | PROVIDERS: PCP Internal Medicine; Visit Provider Internal Medicine Nephrology | DX: I15.1 Hypertension secondary to other renal disorders (principal); R80.9 Proteinuria, unspecified; Z79.899 Other long term (current) drug therapy | CPT/HCPCS: 99212 ==